=== PATIENT | male | born 1955 | race Caucasian/White ===

== ENCOUNTER 2018-10-17 09:53 | Inpatient (IN) | payer OTHER ==
[~2018-10-17] VITALS: Ht 172.7 cm; Wt 75.2 kg
--- OUTSIDE RECORDS SUMMARY | ~2018-10-17 | XMS | Clinical Summary ---
Demographics + + + | Address | [address] | | | [place] [address] | + + + | Home Phone | | + + + | Preferred Language | Unknown | + + + | Marital Status | | + + + | Moravian Affiliation | Unknown | + + + | Race | Unknown | + + + | Ethnic Group | Unknown | + + + Author + + + | Author | [employer] | + + + | Organization | [facility] | + + + | Address | Unknown | + + + | Phone | Unavailable | + + + Support + + +---------+ + | Name | Relationship | Address | Phone | + + +---------+ + | Jasiel Schulz | ECON | Unknown | | + + +---------+ + Care Team Providers + +------+ + | Care Commercial Photographer Name | Role | Phone | + +------+ + | ChandanaChad | PP | | + +------+ + Allergies Not on File Current Medications Not on file Active Problems Not on file Social History + +-------+ +--------+------+ | Tobacco [...] on file | | + + + Plan of Treatment +--------+ + + + + | Date | Type | Specialty | Care Team | Description | +--------+ + + + + | 12/23/ | Initial | | [facility], | | | 2019 | consult | | MD Miya Jordan | | | | | | Dr Hester, | | | | | | [place] [address] | | | | | | [phone] | | | | | | | | +--------+ + + + + + + + + + | Health Maintenance | Due Date | Last Done | Comments | + + + + + | Vaccine: | | | | | Dtap/Tdap/Td (1 - | 4 | | | | Tdap) | | | | + + + + + | Colon Cancer | | | | | Screening | 5 | | | | (Colonoscopy) | | | | + + + + + | Vaccine: Zoster (1 | | | | | of 2) | 5 | | | + + + + + | Vaccine: Influenza | | | | | (#1) | 8 | | | + + + + + Results Not on filefrom Last 3 Months Insurance + +--------+ +------+-------+ + | Payer | Benefi | Subscriber | Type | Phone | Address | | | t Plan | ID | | | | | | / | | | | | | | Group | | | | | + +--------+ +------+-------+ + | MEDICAID | [employer] | [id number] | | | [address] | | | N | | | | [place] | | | [place] | | | | [address] | | | 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
--- OUTSIDE RECORDS SUMMARY | ~2018-10-17 | XMS | Clinical Summary ---
Demographics + + + | Address | [address] | | | [place] [address] | + + + | Home Phone | | + + + | Preferred Language | Unknown | + + + | Marital Status | | + + + | Yazdanism Affiliation | Unknown | + + + | Race | Unknown | + + + | Ethnic Group | Unknown | + + + Author + + + | Author | [employer] | + + + | Organization | [facility] | + + + | Address | Unknown | + + + | Phone | Unavailable | + + + Support + + +---------+ + | Name | Relationship | Address | Phone | + + +---------+ + | Jasiel Schulz | ECON | Unknown | | + + +---------+ + Care Team Providers + +------+ + | Care Community Engagement Coordinator Name | Role | Phone | + [...] | | | | | | [place] [address] | | | | | | [phone] | | | | | | | [...] +------+-------+ + | MEDICAID | [employer] | [id number] | | | [address] | | | N | | | | [place] | | | [place] | | | | [address] | | | 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
--- OUTSIDE RECORDS SUMMARY | ~2018-10-17 | XMS | Clinical Summary ---
Demographics + + + | Address | [address] | | | [place] [address] | + + + | Home Phone | | + + + | Preferred Language | Unknown | + + + | Marital Status | | + + + | Nondenominational Affiliation | Unknown | + + + | Race | Unknown | + + + | Ethnic Group | Unknown | + + + Author + + + | Author | [facility] | + + + | Organization | [facility] | + + + | Address | Unknown | + + + | Phone | Unavailable | + + + Support + + +---------+ + | Name | Relationship | Address | Phone | + + +---------+ + | Jasiel Schulz | ECON | Unknown | | + + +---------+ + Care Team Providers + +------+ + | Care Freight Loader Name | Role | Phone | + [...] | | | | | | [place] [address] | | | | | | [phone] | | | | | | | [...] +------+-------+ + | MEDICAID | [employer] | [id number] | | | [address] | | | N | | | | [place] | | | [place] | | | | [address] | | | 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
[2018-10-17] MEDS ORDERED: GLUCOTROL5 MG PO (10:12)
[2018-10-17] MEDS ORDERED: BISOPROLOL FUMA10 MG PO (10:13)
[2018-10-17] MEDS ORDERED: LEVSIN0.125 MG PO (10:14)
--- NOTE | 2018-10-17 15:36 | EKG ---
[facility] [address] [facility] [place], [place] [address] Signed Normal sinus rhythm Cannot rule out Inferior infarct , age undetermined Abnormal ECG No previous ECGs available Confirmed by HAL MAZA DO ([id number]) on 10/17/2018 3:36:41 PM Electronically Signed By: HAL MAZA DO 10/17/18 1536 PATIENT NAME: KANU SCHULZ Electrocardiogram DATE OF : 55 PHYSICIAN: HAL MAZA DO REPORT #: [id number] REPORT IS CONFIDENTIAL AND NOT TO BE RELEASED WITHOUT AUTHORIZATION
--- NOTE | 2018-10-17 18:52 | NUR ---
PT ARRIVED FROM ED AT 18:15 PT WAS THREE PERSON TRANSFER FROM STREACHER TO THE BED. ADMIT PROCESS COMPLETED AND PT GIVEN DINNER. CBG [id number]
--- NOTE | 2018-10-17 18:56 | NUR ---
PT REMAINS AT THE BEDSIDE ALSO AT THIS TIME.
--- NOTE | 2018-10-17 19:30 | NUR ---
REPORT RC'D FROM DAY SHIFT NURSE GEORGINA. DR. MAZA AT BEDSIDE WITH NURSE TO UPDATE PLAN OF CARE.
--- NOTE | 2018-10-17 20:02 | NUR ---
PT IS AAOX4 AND RESPONDING APPROPRIATELY. SINUS RHYTHM ON MONITOR WITH HR IN 70'S. 2LNC FOR DESAT, CURRENTLY 96%, RR 20, BUL CLEAR, DIMINISHED BLL. ABD MODERATELY DISTENDED, PT STATES INCREASED DISTENSION SINCE AM, ABD TAP ATTEMPTED IN ED AND COVERED WITH BANDAGE C/D/I, DENIES NAUSEA, STATES DECREASED APPETITE, BOWEL TONES HYPER ACTIVE X4. NO EDEMA NOTED. MILD REDNESS TO BILATERAL FEET, FEET ALSO HEAVILY SOILED, PT STATES HE WALKES BARE FOOT, EDUCATION PROVIDED ON WEAR APPROPRAITE FOOTWEAR AND CHECKING FEET DAILY WITH DM HX. IV SITE STATES FLUSHED, PATENT, AND WNL, LR INFUSING AT 75 MLS/HR. NO TREMOR NOTED, NO SWEATS, DENIES ANXIETY, DENIES TACTILE/AUDITORY/VISUAL DISTURBANCES, DENEIS PACHECOHERMINIO SCORE 0. ORIENTED TO ROOM AND CALL LIGHT, EDUCATION OF SAFETY AND FALL PEVENTION PROVIDED. DENIES OTHER NEEDS. CALL [facility] WITHIN REACH.
--- NOTE | 2018-10-17 20:34 | NUR ---
PT ASSISTED TO BSC, TOLERATED WELL. MEDIUM SOFT BM WITH SMALL AMOUNT OF BRIGHT RED BLOOD. PT STATES HE HAS A HX OF HEMORRHOIDS AND "FEELS LIKE THEY ARE ACTING UP." WILL CONTINUE TO MONITOR.
--- NOTE | 2018-10-17 22:21 | NUR ---
PT NOTED TO DESAT INTO LOW 80'S WHILE ON 2L NC. NC TITRATED TO 3L, NO IMPROVEMENT. NC TITRATED TO 4L, PT MONITORED FOR IMPROVEMENT, OXYGEN SATURATION 86% ON 4L. PT NOTED TO MOUTH BREATH. 4L OXYMASK APPLIED AND OXYGEN SATURATIONS NOW IN HIGH 90%. WILL CONTINUE TO MONITOR.
--- NOTE | 2018-10-17 23:00 | NUR ---
UPDATED DR. MAZA ON PT'S CONDITION. ORDER RC'D TO DC FLUIDS, UPDATE DIET TO ADA WTIH 2GM SODIUM, AND CONTINUE TO MONITOR FOR HYPOTENSION. PT SALINE LOCKED AT THIS CELSO.
--- NOTE | 2018-10-18 00:37 | NUR ---
NO ACUTE CHANGES TO ASSESSMENT. PT AWAKENS EASILY. CIWA REMAINS 0. PT SALINE LOCKED.
--- NOTE | 2018-10-18 01:25 | NUR ---
CALL LIGHT ANSWERED, PT ASSISTED TO BSC, TOLERATED WELL. PT NOTED TO HAVE 3X3 INCH LIQUID BRIGHT RED BLOOD WITH SMALL CLOTS, DENIES HAVING BM. RECTUM AREA ASSESSED AND SMALL HEMORROID NOTED, NO BLEEDING OR INFLAMATION NOTED. PT STATES RECTAL BLEEDING HAS RESTARTED WITHIN "DAY OR SO." PHONE CALL TO DR. MAZA REGARDING BLLEDING. ORDER RC'D FOR CBC, TYPE AND SCREEN, AND NPO STATUS NOW. READ BACK AND VERIFIED. PT UPDATED ON PLAN AND AGREEABLE.
--- NOTE | 2018-10-18 02:20 | NUR ---
PT HAD SMALL SEMI SOFT LIQUID BM WIH BRIGHT RED BLOOD. SECOND NURSE KATHY VERIFIED BRIGHT RED BLOOD. ASSISTED BACK TO BED.
--- NOTE | 2018-10-18 03:42 | NUR ---
EDUCATION PROVIDED ON NEW MEDICATIONS AND POSSIBLE SIDE EFFECTS, PT VERBALIZED UNDERSTANDING, ALL QUESTIONS ANSWERED. EDUCATION PROVIDED ON BLOOD TRANSFUSION AND POSSIBLE SIDE EFFECTS, EDUCATION PACKET PROVIDED, ALL QUESTIONS ANSWERED, PT VERBALIZED UNDERSTANDING AND AGREEABLE.
--- NOTE | 2018-10-18 04:06 | NUR ---
BLOOD TRANSFUSING AT THIS TIME. PROVIDED EDUCATION ON REPORTABLE SIDE EFFECTS, PT VERBALIZED UNDERSTANDING. PT TOLERATING WELL AT THIS TIME.
--- NOTE | 2018-10-18 04:12 | NUR ---
PT HAS SUSTAINED HYPOTENSION WITH LAST BP OF 77/46 WITH A MAP OF 53. UPDATED DR. MAZA ON PT'S CONDITION, ORDER RC'D FOR LEVOPHED GTT TO MAINTAIN MAP OF GREATER THAN 65, READ BACK AND VERIFIED. DISCUSSED PLAN OF CARE WITH PT. PROVIDED EDUCATION ON MEDICATION USE AND POSSIBLE SIDE EFFETCS, PT VERBALZIED UNDERSTANING, ALL QUESTIONS ANSWERED, PT AGREEABLE WITH PLAN AT THIS TIME.
--- NOTE | 2018-10-18 04:40 | NUR ---
AAOX4. 2L OXYMASK, BUL CLEAR, LLL CLEAR/DIM, RLL REMAINS DIMINSHED, PT STATES IMPROVEMENT IN WOB. ASCITES TO ABD REMAINS, BOWEL TONES NOW HYPOACTIVE X4, DENIES NAUSEA, REPORTS OVERALL "ABD FEELING BETTER AND LESS BLOATED." REDDNESS TO BILATER FEET IMPROVING AND NEARLY RESOLVED. LEOPHED GTT STARTED AT 4 MCG/MIN. BLOOD CONTINUES INFUSING. FLAGYL INFUSING. OCETOTRIDE INFUSING. ALL IV SITES WNL.
--- NOTE | 2018-10-18 04:47 | NUR ---
LEVOPHED TITRATED TO 6 MCG/MIN. LAST BP 84/53, MAP 60, HR 71.
--- NOTE | 2018-10-18 05:11 | NUR ---
LEVOPHED GTT TITRATED TO 8 MCG/MIN AT THIS TIME. LAST BP 87/57, MAP 64, HR 72.
--- NOTE | 2018-10-18 06:39 | NUR ---
DR. SALAS AT BEDSIDE TO ASSESS PT. BLOOD COMPLETED AT THIS TIME. LEVOPHED TITRATED TO 6 MCG/MIN
--- NOTE | 2018-10-18 06:55 | NUR ---
LEVOPHED GTT TITRATED TO 4 MCG/MIN
--- NOTE | 2018-10-18 07:31 | NUR ---
LEVOPHED TITRATED TO 2 MCG/MIN
--- NOTE | 2018-10-18 07:40 | NUR ---
OR CREW HERE TO TAKE PT TO THE OR FOR EDG, PT WAS ABLE TO TRANSFER SELF FROM BED TO STREACHER. MAG RIDER STARTED BEFORE PT LEFT.
--- NOTE | 2018-10-18 10:48 | NUR ---
PT RETURNED FROM OR AT 08:40 TWO PERSON TRASFERED TO BED FROM KALPESH HARRIS ON LEVOPHED DRIP AT 15MCG. 09:00 LEVOPHED DRIP DECREASED TO 12MCG DR JOSUE DURAN TO USE CENTRAL LINE 10:00 LEVOPHED DRIP DECREASED 10 MCG 10:30 LEVOPHED DRIP AT 8MCG, PT UP TO BEDSIDE COMMODE, HAS BM AND SAMPLE SENT TO LAB PER ORDERS. PT TOLERATED THIS ACTIVITY WELL. MAP GREATER THAN 60. PT HAS USED THE URNINE TO VOID ALSO AT 10:00. PT IS TAKING IN PO LIQUIDS AND ABLE TO TOLERATE WELL. REMAINS ON O2 AT 2L'S VIA NC. LAB HERE OBTAINED LAB SAMPLE VIA IV SITE THAN DC'D.
--- NOTE | 2018-10-18 11:32 | NUR ---
PT UP TO THE BEDSIDE COMMODE, HAS SMALL AMOUNT OF BM AT THIS TIME WITH STREAKS OF RED BLOOD NOTED.
[2018-10-18] MEDS ORDERED: HYDROCHLOROTHIA25 MG PO (11:50)
--- NOTE | 2018-10-18 11:53 | NUR ---
Medications reconciled using pharmacy records and patient & his interviews. Some changes were made that conflicted with admission med list
--- NOTE | 2018-10-18 12:28 | NUR ---
IS ATE THE BED SIDE. PT IS ON THE SECOND BOTTLE OF BOWEL PREP.
--- NOTE | 2018-10-18 14:03 | NUR ---
RN deferred physical therapy treatment today due to patient bowel prep. He is scheduled for a scope tomorrow. Will check tomorrow if patient is appropriate for PT treatment.
--- NOTE | 2018-10-18 15:28 | CONS ---
[facility] [address] [place], [place] [address] Signed DATE OF CONSULTATION: 10/18/2018 CHIEF COMPLAINT: Rectal bleeding. 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 He said the last couple of months he has had no appetite and he has lost a significant amount of weight. He said food just does not taste good. He has had diarrhea and has become lightheaded and weak the last couple of days. His had called the ambulance and had him brought to the emergency room. His blood pressures have been run in the 70s and 80s. He is anemic with hemoglobin of 8.3 with mean cell volume at 92. His potassium was low at 2.7, but his liver function tests were fine, although the Ammonia is a little high at 42. Lactic acid was fine at 1.2. He has stool cultures pending. Blood sugars have been running 96 to 220. I was asked to see him as the general surgeon on-call. He received IV fluids in the emergency room along with Rocephin and Flagyl. His potassium has been replaced. The Internal Medicine Service gave him albumin along with a unit of packed red blood cells. He has been on low-dose Levophed with his blood pressures dipping in the 70s now, up around 100. Otherwise, he seems to be asymptomatic. He has continued to have some liquid brown stool associated with blood. He came in late last night. He has not been able to have a bowel prep. However, I was asked to see him earlier this morning for consideration of upper endoscopy to rule out an upper GI source. PAST MEDICAL HISTORY: Type 2 diabetes, diarrhea x2 months, hemorrhoids, stroke, hypertension, and gout. PAST SURGICAL HISTORY: Includes rhinoplasty, tonsillectomy and a negative colonoscopy over 10 years ago. SOCIAL HISTORY: He does not smoke, but he drinks at least 8 ounces of whiskey a day. He is to Jasiel at [phone]. 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 He has no children. Dr. Chad Ellington is his primary care provider. They prefer the [facility]. FAMILY HISTORY: Mom had congestive heart failure. Dad of colon cancer in his 80s. REVIEW OF SYSTEMS: He had 10 systems reviewed and there was nothing new to add medically. He said there is no metal in his body. ALLERGIES: Electronically Signed By: TRICIA SALAS MD 10/18/18 1528 PATIENT NAME: KANU SCHULZ CONSULTATION DATE OF : 55 REPORT #: [id number] PHYSICIAN: TRICIA SALAS MD PCP: CHDA ELLINGTON MD REPORT IS CONFIDENTIAL AND NOT TO BE RELEASED WITHOUT AUTHORIZATION [facility] [address] [place] [id number] Signed Iodinated contrast and penicillins. MEDICATIONS: 1. Glipizide. 2. Bisoprolol/hydrochlorothiazide. 3. Levsin. PHYSICAL EXAMINATION: VITAL SIGNS: Blood pressure is 87/57, his heart rate 72, respiratory rate 14, temperature 98.7, he is 94% on room air. He is 5 feet 8 inches tall. He is 74 kg. GENERAL: Kanu is a 63-year-old gentleman, lying supine in his ICU bed. He is alert, awake, and interactive. He has a look of chronic malnourished patient. Very thin arms and legs with little muscle mass, but a protuberant full abdomen. His hair is quite thin. He looks older than his stated age. HEART: Regular rate and rhythm, without murmur. LUNGS: Clear to auscultation bilaterally. ABDOMEN: Moderately protuberant, generally soft. No masses noted. No liver edge noted. He has a small umbilical hernia. No tenderness. No obvious fluid wave. LABORATORY DATA: His white blood count 13.9, hemoglobin was 8.3, it is up to 9.5 after 1 unit of packed red blood cells, mean cell volume is 92, neutrophils are 84. Potassium was 2.7 and that is being corrected and repeat potassium is pending. His blood sugars have been running 96 to 220. His albumin is 1.8. Alcohol was negative. Influenza was negative. The INR is 1.3, PTT is 33. Lactic acid is 1.2. Total bilirubin 0.9, AST 22, ALT 8, alkaline phosphatase 114. Ammonia is slightly up at 42. Stool and blood cultures are pending. The EKG showed normal sinus rhythm. RADIOGRAPHIC STUDIES: A chest x-ray shows some markings in the left lower lobe, possibly pneumonia. CT scan of the head was undertaken and the brain is unremarkable. He has some opacification of the left maxillary sinus and his ethmoid air cells. ASSESSMENT AND PLAN: Kanu is a 63-year-old significantly debilitated gentleman with some rectal bleeding associated with his stool. I have been asked to see him earlier this morning for consideration of an upper endoscopy with the help of an anesthesia provider of course. If that were negative, of course, we will try our best to get him to a bowel prep, and maybe a colonoscopy tomorrow, the next day. I reviewed all this with Kanu in detail. I have reviewed upper endoscopy with him. He recalls having a colonoscopy more than 10 years ago, so he is familiar with the process. There is risk including, but not limited to gas bloating, crampy abdominal pain, bleeding, perforation, requiring surgery, and missed diagnosis. Also, there was other unforeseen comorbidities. Given his debilitated state. He has expressed understanding would like to proceed. Electronically Signed By: TRICIA SALAS MD 10/18/18 1528 PATIENT NAME: KANU SCHULZ CONSULTATION DATE OF : 55 REPORT #: [id number] PHYSICIAN: TRICIA SALAS MD PCP: CHAD ELLINGTON MD REPORT IS CONFIDENTIAL AND NOT TO BE RELEASED WITHOUT AUTHORIZATION [address] [address] Signed Tricia Salas MD ALB/MODL /[id number] cc: MD Tricia Anderson MD Copies: CHAD ELLINGTON MD, ANDREW L MD ~ Electronically Signed By: TRICIA SALAS MD 10/18/18 1528 PATIENT NAME: KANU SCHULZ CONSULTATION DATE OF : 55 REPORT #: [id number] PHYSICIAN: TRICIA SALAS MD PCP: CHAD ELLINGTON MD REPORT IS CONFIDENTIAL AND NOT TO BE RELEASED WITHOUT AUTHORIZATION
--- NOTE | 2018-10-18 18:04 | NUR ---
PT TO CT AT THIS TIME, TRANSFER FROM BED TO TABLE WELL AND THEN BACK FROM TABLE TO BED. THEN BACK TO HIS ROOM 128
--- NOTE | 2018-10-18 18:23 | NUR ---
PT CONTIOUES TO DRINK THE SECOND BOTTLE OF BOWEL PREP. HE HAS TOLERATED THIS PROCESS WELL. HE IS VOIDING AT TIMES, ABD APPEARS TO BE LARGER THAN THIS AM. HE HAS BEEN RESTING AND WATCHING TV THROUGH OUT THE DAY. LEVOPHED DRIP DONE TO 4MCG AT THIS TIME TO MAINTAINE A MAP ABOVE 60.
--- NOTE | 2018-10-18 18:25 | NUR ---
LEVOPHED DRIP VS HAVE BEEN TAKE Q 15 MINTUES SEE FLOW SHEET IN PAPER CHART ALSO.
--- NOTE | 2018-10-18 18:43 | NUR ---
PT PLACED ON ROOM AIR AT THIS TIME. SPO2 98%. PT WAS TO BEDSIDE COMMODE VOIDED AND BM AND A LARGE AMOUNT IN THE ATTENDS WAS ALSO NOTED. PT CLEANED UP AND FRESH PULL UP PLACED.
--- NOTE | 2018-10-18 19:30 | NUR ---
REPORT RC'D FROM DAY SHIFT NURSE GEORGINA. REPORTS LEVOPHED GTT AT 4 MCG/MIN, BOWEL PREP STARTED, STREAKS OF JOANA RED BLOOD IN STOOL. PT'S AT BEDSIDE, PT UP IN BED WATCHING TV.
--- NOTE | 2018-10-18 20:16 | NUR ---
PT ASSISTED TO BSC, TOLERATD WELL. MEDIUM SEMI CLEAR LIQUID STOOL WITH SCANT JOANA BLOOD NOTED. PT ASSISTED BACK TO BED. PT AAOX4 AND RESPONDING APPROPRIATELY. SINUS RHYTHM ON MONITOR WITH HR IN 70'S, LEVOPHED GTT AT 4 MCG/MIN. ON ROOM AIR, BUL BIRGIT, BLL CLEAR BUT SLIGHTLY DIM, DENIES SOB. ASCITES TO ABD REMAINS, ABD LESS TIGHT, PT STATES IMPROVEMENT IN "BLOATING," BOWEL TONES HYPERACTIVE X4, DENIES NAUSEA. VOIDING QS. NONPITTING EDEMA TO BLE NOTED. RIJ FLUSHED WITH NS, PATENT, DRAWING BACK BLOOD. UPDATED PATIENT AND ON PLAN OF CARE, CURRENT CONDITION, AND MEDICATIONS. ADVISED TO USE CALL LIGHT, NONSLIP SOCKS, AND O STAND WITH ASSISTANCE, PROVIDED FALL PREVENTION AND SAFETY EDUCATION. PT AND VEBALIZED UNDERSTANDING AND AGREEABLE, ALL QUESTIONS ANSWERED. DENIES OTHER NEEDS.
--- NOTE | 2018-10-18 20:34 | NUR ---
CALL LIGHT ANSWERED, PT ASSISTED TO BSC, MEDIUM LIQUID BM NOTED. PT ASSISTED BACK TO BED, TOLERATED WELL AND STEADY ON FEET. PT'S ASKING IF SHE CAN ASSIST WITH CARE, DEMONSTRATED SAFE APPROPRIATE CARE, REINFORCED SAFETY AND FALL PREVENTION, PT AND VEBALIZED UNDERTANDING AND AGREEABLE.
--- NOTE | 2018-10-18 22:03 | NUR ---
BOWEL PREP COMPLETE AT THIS TIME. LEVOPHED GTT TITRATED TO 6 MCG/MIN, LAST BP 84/56 WITH A MAP OF 62.
--- NOTE | 2018-10-18 22:18 | NUR ---
LEVOPHED GTT TITRATED TO 8 MCG/MIN. LAST BP 82/55 WITH A MAP OF 61. WILL CONTINUE TO MONTIOR.
--- NOTE | 2018-10-18 23:00 | NUR ---
CALL LIGHT ANSWERED, PT ASSISTED BSC, NO BM. ASSISTED BACK TO BED, TOLERATED WELL. DENIES OTHER NEEDS CALL IGHT WITHIN REACH
--- NOTE | 2018-10-19 00:30 | NUR ---
LEVOPHED GTT AT 8 MCG/MIN. PT REMAINS ON ROOM AIR, BUL CLEAR, IMPROVED AIR MOVEMENT TO BLL, CRACKLES TO BLL, NO COUGH. NO OTHER ACUTE CHANGES TO ASSESSMENT.
--- NOTE | 2018-10-19 02:00 | NUR ---
PT RESTING COMFORTABLY IN BED WITH EYES CLOSED, RESPIATIONS EVEN AND UNLABORED ON ROOM AIR. PT VOIDING QS AND USING URINAL.
--- NOTE | 2018-10-19 03:28 | NUR ---
LEVOPHED GTT TITRATED TO 6 MCG/MIN
--- NOTE | 2018-10-19 04:40 | NUR ---
CRACKLES TO BLL. ONSET OF PRODUCTIVE COUGH. +1 PITTING EDEMA TO BLE. INCREASED TIGHTNESS TO ABD. PHONE CALL TO DR. CASTAÑEDA REGARDING PT'S CONDITION, ORDER RC'D TO DECREASE LR TO 50 MLS/HR, READ BACK AND VERIFIED.
--- NOTE | 2018-10-19 04:51 | NUR ---
CALL LIGHT ANSWERED, PT ASSISTED TO BSC, 100 ML CLEAR LIQUID STOOL WITH SMALL AMOUNT OF BRIGHT RED BLOOD.
--- NOTE | 2018-10-19 05:57 | NUR ---
PHONE CALL TO DR. CASTAÑEDA REGARDING LAB RESULS. ORDER RC'D FOR 40 MEQ IV POTASSIUM ONCE, READ BACK AND VERIFIED.
--- NOTE | 2018-10-19 06:35 | NUR ---
PT RESTED FOR MOST OF NIGHT. BOWEL PREP COMPLETE, BM CLEAR LIQUID WITH BRIGHT RED BLOOD. BUL REMAIN CLEAR, CRACKELS TO BLL, OCCASIONAL COUGH, TOLERATING ROOM AIR. SINUS RHYTHM, LEVOPHED AT 4 MCG/MIN, LAST BP 90/65 WITH A MAP OF 69. INCREASED EDEMA TO ABD, BOWEL TONES HYPERACTIVE, DENIES NAUSEA. VOIDING QS. +2 EDEMA TO BLE. RIJ DRESSING CHANGE COMPLETED, SITE PATENT AND DRAWING BACK BLOOD. COLONOSCOPY TODAY.
--- NOTE | 2018-10-19 07:21 | NUR ---
CALL LIGHT ANSWERED, PT ASSISTED TO BSC, 200 ML URINE, 50 ML BRIGHT RED BLOOD. ASSISTED BACK TO BED. DENIES OTHER NEEDS.
--- NOTE | 2018-10-19 08:16 | OR ---
[facility] [address], [place] [address] Signed DATE OF OPERATION: 10/18/2018 SURGEON: Tricia Salas MD PREOPERATIVE DIAGNOSES: 1. Gastrointestinal bleed (rectal bleeding). 2. Anemia. 3. Hypotension. 4. Severe malnutrition. 5. Daily alcohol use. 6. Possible left lower lobe pneumonia. POSTOPERATIVE DIAGNOSES: 1. Itrouugp-om-shcgii gastroduodenitis. 2. Lwhie-fi-jwtuprsl sized hiatal hernia. PROCEDURES: 1. Placement of right internal jugular triple-lumen catheter. 2. Physician-directed ultrasound. 3. Esophagogastroduodenoscopy with CLOtest and biopsies of the duodenum, pyloric bulb, antrum, and distal esophagus. ESTIMATED BLOOD LOSS: None. FINDINGS: Kanu certainly has uhxmkeyj-fl-oausct gastroduodenitis. The mucosa is quite friable. However, there was no anam blood or bleeding. Nevertheless, the mucosa is quite friable with biopsies and with pressure from our gastroscope. We did not see any ulcerations nor any gastric or esophageal varices. 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 He spent some time in [place] after intermediate to be closer to his 's family. They are now in [place], [place]. He likes to drink at least 8 ounces of whiskey every day. He said the last 2 months he had been having significant diarrhea and feeling lightheaded and weak especially the last two days. He said he is anorexic and has no appetite. He has been losing weight the last 2 months. He is known to have some hemorrhoids as well. He told me also that his father had colon cancer in his 80s and from the colon cancer. Kanu had a colonoscopy a little more than 10 years Electronically Signed By: TRICIA SALAS MD 10/19/18 0816 PATIENT NAME: KANU SCHULZ OPERATIVE REPORT DATE OF : 55 REPORT #: [id number] PHYSICIAN: TRICIA SALAS MD PCP: QUAN MCCAULEY MD REPORT IS CONFIDENTIAL AND NOT TO BE RELEASED WITHOUT AUTHORIZATION [facility] [address] [place] [address] Signed ago and to his knowledge it was negative. His had brought him into the emergency room for evaluation. His white count was up at 10.9, but his hemoglobin was low around 8.3 with a mean cell volume of 92, potassium was low, BUN was good at 12, creatinine was good at 0.8, albumin was quite low at 1.8. Liver function tests were amazingly good with the INR 1.3. Ammonia up a little bit at 42. Blood sugars running between 96 and 220. His EKG showed normal sinus rhythm. He was admitted to our Internal Medicine Service. He has been on Rocephin and Flagyl. They have been correcting his potassium and his magnesium. He did receive 1 unit of blood overnight. His hemoglobin came up to 9.5. He also received some albumin along with some IV fluids in the ER as well as in the ICU. I have been asked to see him as a general surgeon on-call mainly for consideration of upper and lower endoscopy. Of course, he came in late last night, so he is not prep for a colonoscopy. In addition, he is requiring ICU level care with multiple blood draws, a Levophed drip and so forth, so I was asked to place a central venous catheter for ongoing monitoring and treatment. I met with Kanu not only in the ICU but in our preop area. I reviewed upper and lower endoscopy with him. He is very familiar with that. He understands there is risk including, but not limited to gas bloating, crampy abdominal pain, bleeding, perforation, requiring surgery, and missed diagnosis. We also discussed a central venous catheter in detail. He understands there is risk including, but not limited to bleeding, infection, scarring, change in contour to the skin, catheter embolization requiring retrieval and pneumothorax requiring chest tube placement. He had expressed understanding and wished to proceed. PROCEDURE NOTE: Kanu was taken in the operating room and placed in the supine Trendelenburg position. Both sides of his neck and his entire chest wall were prepped and draped in the usual sterile fashion. We used our ultrasound to locate the right internal jugular vein. Local anesthetic was copiously injected into the subcutaneous tissues. We were able to enter the internal jugular vein with the 1st pass of the needle under visualization of the ultrasound. We were able to easily draw back nonpulsatile venous blood. Our wire was able to pass without any resistance whatsoever. The track was dilated again without any resistance whatsoever. The triple-lumen catheter was inserted up to 15 cm and all three ports were able to draw and flush quite readily. After this, the triple-lumen catheter was secured to his right neck using multiple interrupted silk sutures. A dry plastic occlusive dressing was then applied. After this, he was placed into the slight reverse Trendelenburg position. He was given some propofol per our nurse airline reservation agent. The adult gastroscope was then introduced and advanced out into the third portion of the duodenum without difficulty. He clearly has hxcqwvff-nw-luphyw gastroduodenitis. He had no ulcerations in the pyloric bulb or stomach. We took biopsies of the second portion of the duodenum, the pyloric bulb, and the antrum for pathologic review. We took a biopsy of the antrum for CLOtest. Upon retroflexion of scope, he does have a puxkw-lx-cvjawoxi sized hiatal hernia. We did not observe any gastric or esophageal varices. No Soraya-Verma tear. No Danny ulcer. There was mild disruption to his Electronically Signed By: TRICIA SALAS MD 10/19/18 0816 PATIENT NAME: KANU SCHULZ OPERATIVE REPORT DATE OF : 55 REPORT #: [id number] PHYSICIAN: TRICIA SALAS MD PCP: QUAN MCCAULEY MD REPORT IS CONFIDENTIAL AND NOT TO BE RELEASED WITHOUT AUTHORIZATION [facility] [address] [place], [place] [address] Signed Z-line. No obvious Green esophagus. We went ahead and took a biopsy just above the Z-line for pathologic review. The middle and upper esophagus were unremarkable. After this, the gas was suctioned out and the gastroscope removed. Kanu tolerated the procedure quite well. RECOMMENDATIONS: Kanu will be returned to the ICU to the internal medicine service. We did give him one additional unit of packed red blood cells in our preop area. We will go ahead and repeat his hemoglobin level currently. We will also allow him liquid diet with some MiraLAX and hopefully we can clean him out. We will see how he does, maybe we can do his colonoscopy tomorrow or the next day. Tricia Salas MD ALB/MODL /[id number] cc: MD Tricia Anderson MD Copies: QUAN MCCAULEY MD, ANDREW L MD ~ Electronically Signed By: TRICIA SALAS MD 10/19/18 0816 PATIENT NAME: KANU SCHULZ OPERATIVE REPORT DATE OF : 55 REPORT #: [id number] PHYSICIAN: TRICIA SALAS MD PCP: QUAN MCCAULEY MD REPORT IS CONFIDENTIAL AND NOT TO BE RELEASED WITHOUT AUTHORIZATION
--- NOTE | 2018-10-19 08:45 | NUR ---
PT RESTING IN BED AT THIS TIME. PT STATES HE DOES NOT FEEL GOOD WITH ALL THE FLUID HE HAS ON HIS BODY. DR. SALAS NOW IN ROOM SEEING PATIENT. LEVOPHED TURNED DOWN TO 2 MCG/MIN AT THIS TIME. IVF CONTINUE AT 50 ML/HR. IV CEFEPIME INFUSING. PT REMAINS ON ROOM AIR. PT'S AT BEDSIDE. CONTINUE TO MONITOR. ASSESSMENT COMPLETE.
--- NOTE | 2018-10-19 09:12 | NUR ---
PATIENT UP TO BSC TO HAVE A LIQUID BM. PT HAD YELLOWISH/BLOODY BM. PT TOLERATED MOVING WELL. ALL QUESTIONS ANSWERED BEST POSSIBLE. PT'S ALEX IN ROOM WITH PATIENT. CONSENT SIGNED FOR LOWER SCOPE TODAY WITH DR. SALAS WHILE DR. SALAS IN ROOM. LEVOPHED TURNED TO STANDBY AT THIS TIME AND LAST BP 90/74 (78). PT HAS PITTING EDEMA FROM ABDOMEN DOWN TO FEET, 2+. CONTINUE TO MONITOR.
--- NOTE | 2018-10-19 10:13 | NUR ---
DR. CASTAÑEDA IN ROOM ASSESSING PATIENT AT THIS TIME.
--- NOTE | 2018-10-19 11:02 | NUR ---
PATIENT LEFT AT THIS TIME FOR SCOPE.
--- NOTE | 2018-10-19 11:42 | NUR ---
10/19/18 1142 Gabby Grayson 1128- PT ARRIVES TO RECOVERY PHASE IN CCU ON 3 L VIA MASK. PT RESPONSIVE TO VERBAL STIMULUS AND DENIES PAIN/NAUSEA. SATS 100% ON 3 L. ENC PT TO PASS GAS. CCU JHON EDGE IN ROOM. PT HAS CENTRAL LINE IN PLACE. ASSESSMENT OF LINE WNL. 1135- VSS. PT'S BP LOW BUT THIS IS PT'S BASELINE. SATS 100% ON 3 L VIA OXYMASK. PT RESPONSIVE TO VERBAL STIMULUS AND ABLE TO ASSIST WITH TRANSFER BACK TO CCU BED. 1140- PT RESTING IN BED WITH RR EVEN AND UNLABORED. PT EASILY AROUSABLE. PT DENIES PAIN/NAUSEA. PT TRITRATED TO 2 L O2 VIA OXYMASK. SATS 100% AROUSBALE
--- NOTE | 2018-10-19 12:49 | NUR ---
LUNCH ORDERED FOR PATIENT. PATIENT RETURNED FROM EGD AND IS NOW RESTING IN BED. PT REMAINS OFF LEVOPHED SINCE AROUND 0900. LAST BP 101/73 (79). IVF CONTINUE AT 50 ML/HR.
--- NOTE | 2018-10-19 13:57 | OR ---
[facility] [address] [place], [place] [address] Signed DATE OF OPERATION: 10/19/2018 SURGEON: Tricia Salas MD PREOPERATIVE DIAGNOSES: 1. Rectal bleeding. 2. Anemia. 3. Ngetdttn-it-xluqvw gastroduodenitis (alcohol-related). 4. Fjhrm-dz-gyxotndl sized hiatal hernia. 5. Left lower lobe pneumonia. 6. Significant malnutrition. 7. Hypotension. POSTOPERATIVE DIAGNOSES: 1. Moderate internal and external hemorrhoids. 2. A 1 x 2 cm pedunculated polyp at 22 cm. 3. Large colonic mass (tumor) at 25 cm. PROCEDURE: Limited colonoscopy to 25 cm with snare polypectomy, and hot biopsies. ESTIMATED BLOOD LOSS: Minimal. INDICATIONS: Kanu is a 63-year-old gentleman, who presented to our hospital with rather significant lightheadedness and weakness for at least a couple of days. He has been losing weight for a couple months. He has been anorexic. He has been drinking alcohol on a daily basis. He also had diarrhea over the last couple months. He has also had rectal bleeding. He was admitted through the emergency room to the Internal Medicine Service. There was some concern of left lower quadrant pneumonia. He was started on his antibiotics and his white count is improving. I was asked to see him as a general surgeon on-call and we did do his upper endoscopy yesterday. He has qcmdkwsa-az-xgryqw gastroduodenitis. He has a rbmjv-ey-nnloifjj sized hiatal hernia. We also placed a right internal jugular triple-lumen catheter for ongoing care here in ICU. Yesterday, he was able to complete his bowel prep. He presents now for his colonoscopy. I met with Kanu and his and we had a long discussion regarding the details up to this point. He had a colonoscopy back in his 40s for reasons that are not clear. He could not recall the details. We did review colonoscopy along with its risks including, but not limited to gas bloating, crampy abdominal pain, bleeding, perforation, requiring Electronically Signed By: TRICIA SALAS MD 10/19/18 1357 PATIENT NAME: KANU SCHULZ OPERATIVE REPORT DATE OF : 55 REPORT #: [id number] PHYSICIAN: TRICIA SALAS MD PCP: CHAD MCCAULEY MD REPORT IS CONFIDENTIAL AND NOT TO BE RELEASED WITHOUT AUTHORIZATION [facility] [address] [place], [place] [address] Signed surgery, and missed diagnosis. We also discussed the need for monitored anesthesia care given his ASA 4 status. They had expressed understanding and wished to proceed. PROCEDURE NOTE: Kanu was taken into our endoscopy suite and placed in the left lateral decubitus position. He was maintained on IV sedation with propofol per our nurse build and deployment engineer. A digital rectal exam was performed. He does have moderate external hemorrhoids. He had good sphincter tone. The prostate is indurated, not overly enlarged. The left is certainly more prominent than the right. There were no masses noted. The adult colonoscope was introduced and advanced under direct visualization of camera. No specific pathology in the rectum. He has a 1 x 2 cm pedunculated polyp at 22 cm in his distal sigmoid colon. It was removed with help of the snare and suctioned onto the scope. It was sent off for pathology. We used out hot biopsy forceps to cauterize the base of that polyp and required an additional biopsy. The scope was then inserted and advanced once again and at 25 cm we encountered a large mass in the cecum. We tried several times over several minutes to pass the scope beyond the mass and it was unsuccessful. In fact, the scope retroflexed due to the mass. Of course, it was friable and bleeding. We went ahead and took a couple of biopsies of that for pathologic review. The scope was then slowly withdrawn. We saw no diverticular disease. The scope was then retroflexed in the rectum and he does have keugrgp-fg-gunrgiak internal hemorrhoids as well. After this, the gas was suctioned out and colonoscope removed. Kanu tolerated the procedure quite well. RECOMMENDATIONS: Kanu will be returned to his ICU bed for ongoing care. He is going to need antibiotics to clear his pneumonia. We are also going to go ahead and start him on TPN and we will give him a clear liquid diet as well. We will discuss the results with Kanu and his . He is going to need a week or more to recover from his pneumonia. In addition, he could benefit from a barium enema to assess the remainder of the colon for synchronous lesion. In the meantime, hopefully we can improve his nutritional status. Tricia Salas MD ALB/MODL /[id number] Electronically Signed By: TRICIA SALAS MD 10/19/18 1357 PATIENT NAME: KANU SCHULZ OPERATIVE REPORT DATE OF : 55 REPORT #: [id number] PHYSICIAN: TRICIA SALAS MD PCP: CHAD MCCAULEY MD REPORT IS CONFIDENTIAL AND NOT TO BE RELEASED WITHOUT AUTHORIZATION [facility] [address] [place] [address] Signed cc: MD Chad Edge MD Copies: TRICIA SALAS MD, MALCOLM MD ~ Electronically Signed By: TRICIA SALAS MD 10/19/18 1357 PATIENT NAME: SCHULZKANU OPERATIVE REPORT DATE OF : 55 REPORT #: [id number] PHYSICIAN: TRICIA SALAS MD PCP: CHAD MCCAULEY MD REPORT IS CONFIDENTIAL AND NOT TO BE RELEASED WITHOUT AUTHORIZATION
--- NOTE | 2018-10-19 16:40 | NUR ---
BLOOD CULTURES TAKEN FROM [facility] OF CENTRAL LINE PER DR. SALAS'S ORDER. PT REMAINS SLEEPY THIS AFTERNOON, BUT STATES HE IS FEELING BETTER SINCE HE HAS FINALLY BEEN ABLE TO REST. PT DENIED WANTING TO SHOWER TODAY, BUT STATES HE WOULD LIKE TO SHOWER TOMORROW. PT'S LEFT EARLIER AND WILL RETURN IN THE AM. LAST BP 84/60 (66). PT REMAINS OFF THE LEVOPHED GTT. ASSESSMENT UNCHANGED FROM PRIOR AT THIS TIME. CALL LIGHT WITHIN REACH. CONTINUE TO MONITOR.
--- NOTE | 2018-10-19 17:31 | NUR ---
PATIENT SITTING UP EATING HIS DINNER AT THIS TIME. PT HAD BEEN RESTING THIS AFTERNOON WELL. PT STATES AT THIS TIME THAT HE IS FEELING "THAT FULL FEELING" AGAIN, WHICH IS UNCOMFORTABLE FOR HIM. PT UP TO COMMODE AND HAD A VERY SMALL SMEAR OF BLOOD AT THIS TIME, NO BM. CONTINUE TO MONITOR.
--- NOTE | 2018-10-19 20:00 | NUR ---
Assisted patient to [facility], gait is steady. Patient had scant amount of mucoid-consistent output from bowel, no urine. Now resting in bed again, patient is mildly tachypneic from movement, recovered quickly, RR now 13, SpO2 98% on RA. Denies further needs at this time, denies pain or feeling SOB. Alert and oriented x4, HR WNL with activity and at rest, BP after commode 92/69 (75). 2+ pitting edema noted to BLE, generalized edema to BUE. Peripheral pulses are weak throughout. Lungs are clear in upper flores, crackles heard in bases bilaterally, denies SOB. Ascites noted to abd, patient denies pain with palpation, bowel tones are hypoactive. Cenral line present, all lumens have blood return, flush easily, LR infusing at 50 cc/hr per order, all other lumens heparin-locked. Patient denies further needs at this time. Call light within reach.
--- NOTE | 2018-10-19 21:15 | NUR ---
Notified Dr. Perkins that patient has had oliguria over past 6 hours and that MAP has been between 58 and 62 consistently. 500 cc LR bolus over 1 hour x1 ordered.
--- NOTE | 2018-10-19 21:32 | NUR ---
At 2131, Dr. Perkins notified that patient had sudden onset of HR between 138 and 142. Stat EKG ordered, Dr. Perkins states that he will come to patient's bedside for evaluation.
--- NOTE | 2018-10-19 21:40 | NUR ---
Dr. Perkins to bedside to evaluate patient. Patient states "I feel like my heart is racing." Denies feeling SOB, denies CP. See electronic record for vitals.
--- NOTE | 2018-10-19 22:15 | NUR ---
Dr. Perkins remains at bedside, patient continues to have sustained tachycardia with frequent BP monitoring, MAP ranging from 55 to 65. Received verbal order for BMP to be drawn from central line. Patient coninues to be restful and denies symptoms other than palpitations.
--- NOTE | 2018-10-19 23:04 | NUR ---
Notified Dr. Perkins that patient's stat lab results were back, Dr. Perkins states that he will come back to unit.
--- NOTE | 2018-10-19 23:10 | NUR ---
Dr. Perkins back to bedside fo further patient evaluation, patient continues to have sustained tachycardia with HR >140, received verbal order 5mg IV diltiazem push now x1 dose.
--- NOTE | 2018-10-19 23:15 | NUR ---
5mg IV diltiazem given per order, patient's heart rate converted to sinus rhythm, HR 70s. Patient states that he no longer feels palpitations. Also notified Dr. Perkins that patient had x1 liquid stool with anam red blood noted, less than 50cc. No new orders received.
--- NOTE | 2018-10-20 | NUR ---
Patient restful with eyes closed, breathing is even and unlabored. Assessment done, edema to BLE now 3+, crackles still heard in lower lung flores bilaterally, abdomen is also more firm now. Patient denies feeling SOB and denies abdominal discomfort. No other acute changes, patient's urine output is now QS after fluid administration, patient continues to be hypotensive with MAP between 60 and 62. Remains in sinus rhythm with rate between 65 and 80. Patient denies needs at this time. Call light within reach.
--- NOTE | 2018-10-20 00:45 | NUR ---
Notified Dr. Perkins that patient continues to have MAP <65 despite fluid administration. Also notified Dr. Perkins that patient's BLE edema has worsened, patient continues to have crackles bilaterally in lower lung flores and abdomen is cindy distended and firm. Received order forr patient to be stated on phenylephrine gtt, start at 40 mcg/min, titrate by 5 mcg/min every 15 minutes based on BP response to maintain MAP of 65.
--- NOTE | 2018-10-20 01:27 | NUR ---
Patient started on phenylephrine gtt at 40 mcg/min. Patient is restful with eyes closed, breathing is even and unlabored, FLACC 0. IVF infusing per order.
--- NOTE | 2018-10-20 01:45 | NUR ---
BP 97/67, MAP 73, heart rate 74, phenylephrine gtt titrated to 35 mcg/min.
--- NOTE | 2018-10-20 02:33 | NUR ---
Titrated phenylephrine gtt to 30 mcg/min due to BP 95/67 (73).
--- NOTE | 2018-10-20 02:40 | NUR ---
Patient remains restful, denies needs at this time, vitals WNL. call light within reach.
--- NOTE | 2018-10-20 03:30 | NUR ---
Patient restful with eyes closed, breathing is even and unlabored. IVF infusing per order. Call light within reach.
--- NOTE | 2018-10-20 05:18 | NUR ---
Phenylephine gtt titrated to 25 mcg/min, BP 93/67 (73). Patient assessment done, no acute changes from previous, vitals WNL, heart rate remains 70s to 80s, sinus rhythm. Patient denies needs at this time, IVF infusing per order. call light within reach.
--- NOTE | 2018-10-20 06:46 | NUR ---
Patient remains restful with eyes closed, vitals WNL. BP 104/75 (82), phenylephine gtt titrated to 20 mcg/min.
--- NOTE | 2018-10-20 08:07 | NUR ---
PHENYLEPHERIN DRIP OFF AT THIS TIME.
--- NOTE | 2018-10-20 08:30 | NUR ---
PT INCONTINENT OF LARGE AMOUNT OF LIQUID STOOL IN BED. CLEANED PT, NEW ATTENDS IN PLACE. BEDDING CHANGED. PT UP TO CHAIR WITH ONE PERSON STANDBY ASSIST. CALL LIGHT WITHIN REACH.
--- NOTE | 2018-10-20 08:55 | NUR ---
PT UP TO BEDSIDE COMMODE WITH ONE PERSON ASSIST FOR BM. PT WAS INCONTINENT OF LIQUID STOOL IN ATTENDS WELL. PT ALERT AND ORIENTED USES CALL LIGHT APPROPRIATLY.
--- NOTE | 2018-10-20 09:04 | NUR ---
PT BACK TO [facility] FROM [facility], CALL LIGHT WITHIN REACH.
--- NOTE | 2018-10-20 09:18 | NUR ---
IV FLUIDS OFF AT THIS TIME.
--- NOTE | 2018-10-20 09:23 | NUR ---
IV SITE IN RT WRIST DC'D DUE TO SCANT REDNESS AND PAIN WITH FLUSH. TIP OF CATH INTACT.
--- NOTE | 2018-10-20 10:51 | NUR ---
CALLED AND TO UPDATE ON PT SMALL AMOUNT OF JOANA BLOOD FROM RECTUM WHEN UP TO THE BEDSIDE COMMODE. PT VITALS REMAIN STABLE, PT DENIES FELLING FAINT OR PAIN. PT IS ONE PERSON STANDBY ASSIST TO COMMODE. NO NEW ORDERS AT THIS TIME. CONTINUE TO MONITOR.
--- NOTE | 2018-10-20 11:07 | NUR ---
CALLED PT PER HER REQUEST. GAVE UPDATE ON PT STATUS.
--- NOTE | 2018-10-20 12:04 | NUR ---
PT UP TO BEDSIDE COMMODE WITH ONE PERSON ASSIST. PT HAS SMALL AMOUNT OF JOANA BLOOD MIXED WITH LIQUID STOOL. PT ALSO ABLE TO URINATE. PT DENIES NAUSEA, PAIN, AND SOB AT THIS TIME. PT VITALS REMAIN WNL, PT SATS 100% ON ROOM AIR.
--- NOTE | 2018-10-20 15:25 | NUR ---
PT UP TO BEDSIDE COMMODE TO HAVE BM. PT INCONTINENT OF SCANT AMOUNT OF LIQUID STOOL IN ATTENDS. PT DENIES PAIN, NAUSEA, AND SOB. CALL LIGHT WITHIN REACH.
--- NOTE | 2018-10-20 15:32 | NUR ---
PT BACK TO BED FROM COMMODE, BLOOD TINGED MUCOUS STOOL, SCANT AMOUNT.
--- NOTE | 2018-10-20 17:20 | NUR ---
PT UP TO THE BEDSIDE COMMODE FOR ANOTHER SCANT LIQUID BM. PT THEN AMBULATED TO THE BATHROOM. PT ABLE TO BRUSH OWN TEETH AND WASH HANDS AND FACE, THEN AMBULATED BACK TO BED. CLEAN LINENS ON BED, CHANGED PT GOWN, BEDBATH DONE. SHAMPOO CAP USED FOR PT HAIR. WARM BLANKETS GIVEN. PT VITALS WNL. PT DENIES PAIN, NAUSEA, AND SOB. PT REPORTS ABD FEELING FULL, NO ACCOUNT MANAGER TRAINEE THE LAST FEW DAYS.
--- NOTE | 2018-10-20 19:22 | NUR ---
CALLED TO UPDATE ON PT URINE OUT PUT OF APPROXIMATLY 600 ML. NO NEW ORDERS AT THIS TIME.
--- NOTE | 2018-10-20 20:06 | NUR ---
RECEIVED REPORT FROM JHON REID. pt RESTING IN BED. ASSESSMENT DONE. UP TO BSC. LINENS CHANGED. IV INFUSION COMPLETE, SL, GOOD BLOOD RETURN NOTED. MEDICATION GIVEN (SEE MAR). NO REQUESTS AT THIS TIME. CALL LIGHT WITHIN REACH.
--- NOTE | 2018-10-20 21:45 | NUR ---
MEDICATION DUE. pt RESTING IN BED. UP TO BSC, SBA. SMALL BM. BACK TO BED. WARM BLANKET PROVIDED. WHITE LUMEN OF RIGHT IJ FLUSHED PER PROTOCOL, BRISK BLOOD RETURN, IV ABX INFUSION STARTED (SEE MAR). CALL LIGHT WITHIN REACH. NO FURTHER REQUESTS AT THIS TIME.
--- NOTE | 2018-10-20 23:15 | NUR ---
LEVOFLOXACIN INFUSION AND FLUSH COMPLETE. BLUE AND BROWN PORTS FLUSHED AND HEP LOCKED PER PROTOCOL, BRISK BLOOD RETURN NOTED. WHITE LUMEN RUNNING CEFEPIME. pt RESTING WITH EYES CLOSED, RESPIRATIONS REGULAR. CALL LIGHT WITHIN REACH.
--- NOTE | 2018-10-20 23:55 | NUR ---
IV PUMP BEEPING. ERROR CLEAR, INFUSION RUNNING. pt RESTING WITH EYES CLOSED, RESPIRATIONS REGULAR. CALL LIGHT WITHIN REACH
--- NOTE | 2018-10-21 00:35 | NUR ---
ASSESSMENT DONE. pt RESTING WITH EYES CLOSED, RESPIRATIONS REGULAR. URINAL EMPTIED. CALL LIGHT WITHIN REACH. NO CHANGES FROM PRIOR ASSESSMENT.
--- NOTE | 2018-10-21 01:21 | NUR ---
pt AWAKE TO URINATE. REPORTED HAVING A "BAD HEADACHE ABOUT A HALF HOUR AGO, BUT IT'S GONE NOW". DENIED PAIN AT THIS TIME. STATED "I FEEL FINE I JUST AM NOT USE TO FEELING BLOATED". URINAL EMPTIED. NO REQUESTS AT THIS TIME. CALL LIGHT WITHIN REACH.
--- NOTE | 2018-10-21 02:03 | NUR ---
IV PUMP BEEPING. ERROR RESOLVED, ABX INFUSING. pt RESTING WITH EYES CLOSED, REESPIRATIONS REGULAR, RATE = 17. CALL LIGHT WITHIN REACH.
--- NOTE | 2018-10-21 02:37 | NUR ---
IV PUMP BEEPING. INFUSION AND FLUSH COMPLETE. SL IV, BRISK BLOOD RETURN. pt RESTING WITH EYES CLOSED, RESPIRATIONS REGULAR RATE = 17. CALL LIGHT WITHIN REACH.
--- NOTE | 2018-10-21 03:38 | NUR ---
pt RESTING WITH EYES CLOSED, RESPIRATIONS REGULAR. RATE =12. CALL LIGHT WITHIN REACH.
--- NOTE | 2018-10-21 04:36 | NUR ---
ASSESSMENT DONE. pt OPENED EYES BRIEFLY. NO REQUESTS AT THIS TIME. DENIES PAIN. CALL LIGHT WITHIN REACH. NO CHANGES FROM PRIOR ASSESSMENT.
--- NOTE | 2018-10-21 05:05 | NUR ---
pt RESTING WITH EYES CLOSED RESPIRATIONS REGULAR, RATE =12. URINAL EMPTIED. CALL LIGHT WITHIN REACH.
--- NOTE | 2018-10-21 06:10 | NUR ---
MEDICATION DUE. pt RESTING WITH EYES CLOSED, RESPIRATIONS REGULAR, RATE =11. WHITE LUMEN OF IJ FLUSHED PER PROTOCOL, BLOOD RETURN NOTED. IV ABX INFUSING (SEE MAR). ROOM TIDIED. CALL LIGHT WITHIN REACH.
--- NOTE | 2018-10-21 07:30 | NUR ---
REPORT RECIEVED. PATIENT IS RESTFUL IN BED. TALKED WITH PATIENT ABOUT PLAN OF CARE FOR DAY. IS UNDERSTANDING. IS W/O QUESTIONS.
--- NOTE | 2018-10-21 08:00 | NUR ---
ASSESSMENT DONE. BREAKFAST ORDERED.
--- NOTE | 2018-10-21 09:13 | NUR ---
SHAVE GIVEN. TOLERATED WELL. HOB ELEVATED. DENEIS PAIN. C/O DISCOMFORT IN ABD. TOOK APPROX 30% OF BREAKFAST. IV ANTIBOTIC INFUSING. PATIENT DENIES NAUSEA.
--- NOTE | 2018-10-21 10:10 | NUR ---
PHYSICAL THERAPY HERE TO WORK WITH PATIENT. AMBULATED IN HALLWAY, HR TO 136, IS FATIGUED AND SHORT OF BREATH WITH EXERTION.
--- NOTE | 2018-10-21 10:13 | NUR ---
INC OF STOOL.SMALL AMOUNT OF BRIGHT RED BLOOD NOTED WELL DARK BROWN/GREENISH LIQ STOOL NOTED.
--- NOTE | 2018-10-21 10:45 | NUR ---
UP TO BR TO EXPELL SMALL STOOL. HR TO 146 WITH ACTIVITY. STATES HE FEELS HIS HEART BEATING FAST AND HAS INCREASED SHORTNESS OF BREATH. THEN BACK TO BED.
--- NOTE | 2018-10-21 12:00 | NUR ---
ASSESSMENT DONE. DR. CASTAÑEDA HERE TO SEE PATIENT. ORDERS RECIEVED. PATIENT IS SITTING UP IN BED FOR LUNCH.
--- NOTE | 2018-10-21 12:15 | NUR ---
PATIENT AT BEDSIDE. POOR APPETITE.
--- NOTE | 2018-10-21 13:15 | NUR ---
CVC DC'D. CATH INTACT. NO BLEEDING NOTED.
--- NOTE | 2018-10-21 14:00 | NUR ---
UP TO BR TO EXPELL RED STOOL. HR TO 130 WITH EXERTION.
--- NOTE | 2018-10-21 15:00 | NUR ---
NAPPING, NO DISTRESS NOTED.
--- NOTE | 2018-10-21 18:00 | NUR ---
C/O INCREASED PRESSURE IN ABD AFTER EATING.
--- NOTE | 2018-10-21 19:07 | NUR ---
WATCHING TV. REPORT TO NEXT SHIFT. NO CHANGES.
--- NOTE | 2018-10-21 19:56 | NUR ---
RESTING IN BED. C/O FEELING BLOATED IN ABD AND HAS PACHECO. STATES APPETITE IS POOR PARTLY DUE TO FEELING BLOATED. ABD IS SOMEWHAT DISTENDED. IS EDEMATOUS FROM FEET TO ABD. SKING IS SHINY ON LEGS/THIGHS. VOIDING SMALL AMT. GIVEN 500MG TYLENOL PO FOR PACHECO AND GENERAL DISCOMFORT. ALSO DISCUSSED THAT PT NEEDS INCREASED PROTIEN INTAKE.
--- NOTE | 2018-10-21 20:28 | NUR ---
BED LINENS CHANGED AND ROOM TIDIED WHILE PT SHOWERED.
--- NOTE | 2018-10-21 21:11 | NUR ---
AMD TO BR HAD SMALL AMT JOANA RED BLOOD STOOL. SOB WITH EXERTION AND HR TO 110.
--- NOTE | 2018-10-21 21:42 | NUR ---
HEAD ACHE BETTER, DOZING.
--- NOTE | 2018-10-21 22:35 | NUR ---
DR CASTAÑEDA GIVEN UPDATE THAT PT'S STOOLS ARE JOANA BLOOD WITH SMALL AMT STOOL. THE BLOOD IS ALSO SMALL AMTS.
--- NOTE | 2018-10-22 00:08 | NUR ---
ASSESSMENT DONE. STATES IS SLEEPING INTERMITTANTLY. NO CHANGE.
--- NOTE | 2018-10-22 01:45 | NUR ---
SLEEPING OFF AND ON, NO CHANGE.
--- NOTE | 2018-10-22 03:18 | NUR ---
CONT TO SLEEP OFF AND ON, CONT TO VOID SMALL AMTS FREQ.
--- NOTE | 2018-10-22 05:08 | NUR ---
HAS SLEPT BETTER PAST 2 HRS.
--- NOTE | 2018-10-22 05:21 | NUR ---
AWAKENED FOR VS AND LABS. HAS NO C/O AT THIS TIME. SPEAKS VERY LITTLE.
--- NOTE | 2018-10-22 06:50 | NUR ---
DR SALAS IN TO SEE PT.
--- NOTE | 2018-10-22 07:30 | NUR ---
REPORT RECIEVED. PATIENT IS IN BED RESTING. C/O PRESSURE IN LOWER ABD. TALKED WITH PATIENT ABOUT PLAN OF CARE FOR DAY, INDICATES UNDERSTANDING.
--- NOTE | 2018-10-22 07:45 | NUR ---
UP TO BR, INC OF BILE LIKE STOOL WITH SMALL AMOUNT OF BLOOD NOTED. HR TO 130 WITH MOVEMENT. IS SHORT OF BREATH WITH EXERTION. TO CHAIR AFTER BATHROOM. ASSESSMENT DONE.
--- NOTE | 2018-10-22 09:00 | NUR ---
TOOK BREAKFAST FAIR. SPONGE BATH GIVEN WHILE IN BATHROOM.
--- NOTE | 2018-10-22 09:35 | NUR ---
DR. CASTAÑEDA HERE TO SEE PATIENT. PATIENT TALKATIVE. HOB ELEVATED.
--- NOTE | 2018-10-22 12:30 | NUR ---
patient here. DR. CASTAÑEDA TALKING WITH PATIENT AND PATIENT .
--- NOTE | 2018-10-22 12:36 | NUR ---
PT EXPECTS TO RETURN HOME UPON DC, STATES THEY ARE ABLE TO CARE FOR THEMSELVES, AND ABLE TO GET TO DR MCNAMARA. STATES HE IS WORKING ON UNDERSTANDING HIS DX, [place] AT THIS TIME.
--- NOTE | 2018-10-22 13:52 | EKG ---
[facility] [address] [place] [address] Signed Junctional tachycardia Low voltage QRS Cannot rule out Inferior infarct (cited on or before 17-OCT-2018) Cannot rule out Anterior infarct , age undetermined Abnormal ECG When compared with ECG of 17-OCT-2018 10:49, Current undetermined rhythm precludes rhythm comparison, needs review Nonspecific T wave abnormality no longer evident in Anterior leads Nonspecific T wave abnormality, worse in Lateral leads Confirmed by STEPHIE CASTAÑEDA MD ([id number]) on 10/22/2018 1:52:34 PM Electronically Signed By: STEPHIE CASTAÑEDA MD 10/22/18 1352 PATIENT NAME: KANU SCHULZ Electrocardiogram DATE OF : 55 PHYSICIAN: STEPHIE CASTAÑEDA MD REPORT #: [id number] REPORT IS CONFIDENTIAL AND NOT TO BE RELEASED WITHOUT AUTHORIZATION
--- NOTE | 2018-10-22 14:03 | NUR ---
STAFF IN WITH PT, WILL CHECK BACK AGAIN.
--- NOTE | 2018-10-22 14:14 | NUR ---
SPOKE WITH IN [facility]. SHE STATES HE DRANK PART OF AN ENSURE FOR BREAKFAST BUT SHE DOESN'T KNOW HOW WELL HE DID WITH HIS 2 POACHED EGGS AND LATVIAN YOGURT FOR BREAKFAST. HE DID BETTER WITH LUNCH TODAY: AT SOME OF A CAES[employer] SALAD AND TUNA FISH. SAID SHE IS GONNA KEEP AFTER HIM TO EAT SOMETHING EVEN IF HE DOESN'T FEEL LIKE IT. WILL CONTINUE TO ENCOURAGE PROTEIN FOODS, TOO. WILL CONTINUE TO MONITOR. CONTINUE ENSURE ENLIVE 2 A DAY IF TOLERATED.
--- NOTE | 2018-10-22 15:00 | NUR ---
NAPPING, NO DISTRESS NOTED.
--- NOTE | 2018-10-22 16:10 | NUR ---
PHYS THERAPY HERE TO WORK WITH PATIENT. PATIENT AMBULATED TO MEDICAL FLOOR TO THERAPY ROOM. DR. MCCAULEY IN PHYS THERAPY ROOM TO TALK TO PATIENT AND PATIENT . PATIENT TOLERATING THERAPY WELL.
--- NOTE | 2018-10-22 19:21 | NUR ---
NO FUTHER CHANGES, REPORT GIVEN.
--- NOTE | 2018-10-22 20:00 | NUR ---
AMB TO BR, HAD VERY SMALL AMT BLOOD IN TOILET AND ATTENDS. HR TO 136 WHEN WACHING HANDS. PT IS MORE INTERACTIVE TONIGHT.
--- NOTE | 2018-10-22 20:30 | NUR ---
FEELING PRESSURE, CRAMPING LOWER ABD. TO BR HAD HAD SMALL AMT BLOOD AND MUCOUS FROM RECTUM. PT COMMENTED HE DOES HAVE HEMMOROIDS, ONE IS NOTED TO BE DARK. HR TO 116.
--- NOTE | 2018-10-22 21:30 | NUR ---
RESTING IN BED. MEDS GIVEN BS 156, GIVEN 1 UNIT INSULIN.
--- NOTE | 2018-10-23 00:28 | NUR ---
AWAKENED FOR ASSESSMENT. NO C/O.
--- NOTE | 2018-10-23 01:40 | NUR ---
PTS HR SUDDENLY WENT FROM 80'S TO 150'S-160. DR CASTAÑEDA NOTIFIED, CAME DOWN TO UNIT TO ASSESS PT. 6MG IV ADENOSINE GIVEN RAPID PUSH. HR DOWN TO 100'S. CONT TO MONITOR.
--- NOTE | 2018-10-23 01:54 | NUR ---
LAB IN TO DRAW.
--- NOTE | 2018-10-23 02:01 | NUR ---
CARDIZEM DRIP STARTED AT 3MG/HR PER DR CASTAÑEDA.
--- NOTE | 2018-10-23 02:15 | NUR ---
CARDIZEM INC TO 5MG/HR HR CONT TO BE 110.
--- NOTE | 2018-10-23 02:39 | NUR ---
DR CASTAÑEDA NOTIFIED OF LABS, ORDERS FOR 40MEQ KCL PO, MAGNESIUM SULFATE 2MG IV AND 20MILIMOLES OF POTASSIUM PHOSPHATE IV RECIEVED.
--- NOTE | 2018-10-23 03:37 | NUR ---
PT C/O PAIN AT IV SITE WHERE MG INFUSING. CHANGED TO OTHER FORARM SITE AND PAIN RESOLVED. MG FINISHED INUSING MINUTES LATER. K PHOS STARTED. CONT CARDIZEM AT 5MG/HR. PT DISCOURAGED, ALSO UPSET AT NOT BEING ABLE TO SLEEP. WILL TRY TO MINIMALIZE INTERUPTIONS.
--- NOTE | 2018-10-23 05:00 | NUR ---
PT IS ASLEEP. HR 77, CARDIZEM GTT TO 3MG/HR.
--- NOTE | 2018-10-23 05:58 | NUR ---
SLEEPING. HR 77 SR.
--- NOTE | 2018-10-23 06:25 | NUR ---
AWAKE AND UP TO BR TO VOID. HR FROM 60-70'S WHILE SLEEPING TO 90 WITH WALKING. TO LBEING UP WELL.
--- NOTE | 2018-10-23 06:27 | NUR ---
SLEEPING AT THIS TIME. CARDIZEM GTT AT 3MG/HR HR 70'S.
--- NOTE | 2018-10-23 06:50 | NUR ---
PT CALLED, INC OF LARGE AMT GREEN LIQ STOOL. AMB TO BR AND HAD MORE STOOL IN TOILET. HR UP TO 90'S WHILE UP. LINEN CHANGED AND BACK TO BED. PT NOW STATING THAT HE DIDN'T SLEEP WELL BECAUSE HE JUST COULDN'T GET COMFORTABLE. SUGGESTED THAT HE TAKE TYLENOL TONIGHT FOR GEN DISCOMFORT AND REST.
--- NOTE | 2018-10-23 07:16 | NUR ---
REPORT TO DAY SHIFT. RESTING.
--- NOTE | 2018-10-23 08:00 | NUR ---
ASSESSMENT DONE. UP TO BR TO EXPELL SMALL RED STOOL. BACK TO BED W/O INCIDENT. TALKED WITH PATIENT ABOU PLAN OF CARE FOR DAY. CARDIZEM GTT REMAINS PATENT. K PHOS INFUSED. ROUTINE MEDICATIONS GIVEN WELL TYLENOL 500 MG PO FOR GENERALIZED COMFORT. INSULIN 1 UNIT GIVEN FOR ACCUCHECK OF 155.
--- NOTE | 2018-10-23 09:00 | NUR ---
TOOK BREAKFAST FAIR. DENIES NAUSEA.
--- NOTE | 2018-10-23 09:40 | NUR ---
DR. SALAS HERE TO SEE PATIENT. HE TALKED WITH PATIENT REGARDING POSSIBLE SURGERY AND CT FOR FUTHER DX OF CANCER. DR. SALAS ALSO TALKED WITH PAIENT ON THE PHONE REGARDING PALN OF CARE.
--- NOTE | 2018-10-23 10:18 | NUR ---
LASIX 20 MG IV GIVEN.
--- NOTE | 2018-10-23 10:23 | NUR ---
PATIENT ONLY ATE ABOUT HALF OF HIS BLUEBERRY Syrian YOGURT FOR BREAKFAST. CHOCOLATE GLUCERNA SAVED OFF OF TRAY - ENCOURAGED PATIENT TO DRINK THAT THIS MORNING, THOUGH HE IS HAVING A CT SCAN TODAY AND MAY NEED TO DRINK THE CONTRAST BEFORE THAT. HE TRIED THE STEAK FOR DINNER BUT COULDN'T CHEW IT SO HE DIDN'T EAT IT. HE SAID WANTS A NICE JUICY RIB-EYE WHICH WE DON'T HAVE HERE. I DID REMIND HIM THERE ARE OTHER PROTEIN FOODS AVAILABLE THOUGH. HE WILL CONTINUE TO WORK ON PROTEIN INTAKE.
--- NOTE | 2018-10-23 10:30 | NUR ---
ORAL CONTRAST, SOLUMEDROL, AND PO MEDICATIONS GIVEN. PATIENT HAS WISHED TO REMAIAN IN BED. HAS BEEN AMBULAING TO BR. HR WITH AMBULATION < 100.REMAINS ON CARDIZEM GTT AT 3 MG/HR.
--- NOTE | 2018-10-23 14:15 | NUR ---
MEDICATIONS GIVEN ORDERED. AT BEDSIDE. CARDIZEM GTT REMAINS AT 3 MG/HR.
--- NOTE | 2018-10-23 15:00 | NUR ---
TO CT VIA BED. RN WITH PATIENT.
--- NOTE | 2018-10-23 15:30 | NUR ---
RETURN TO CCU. TOLERATED CT WELL. DENEIS SHORTNESS OF BREATH.
--- NOTE | 2018-10-23 16:00 | NUR ---
ASSESSMENT UNCHANGED. PTAIENT IS SITTING UP IN BED TO EAT DINNER.
--- NOTE | 2018-10-23 18:26 | NUR ---
UP TO BR. IS STEADY ON FEET.
--- NOTE | 2018-10-23 19:48 | NUR ---
REPORT RC'D FROM DAY SHIFT NURSE JENNY. REPORTS PT'S HR WNL, CARDIZEM GTT AT 3 MG/HR, PO MED TO START THIS EVENING. PT CURRENTLY IN BED WATCHING TV. FULL ASSSESSMENT TO BE COMPLETED.
--- NOTE | 2018-10-23 20:23 | NUR ---
PO CARDIZEM GIVEN AND GTT TO BE DC'D, HR 60-70'S. AAOX4 AND RESPONDING APPROPRIATELY. SINUS RHYTHM ON MONITOR, BP 91/64, MAP 69. ON ROOM AIR, RR 16, LUNGS CLEAR IN BUL, DIMINISHED IN BLL. ASCITES TO ABD, PT STATES ABD "FEELS BACK THAN LAST FEW DAYS," BOWEL TONES ACTIVE X4, DENIES NAUSEA. VOIDING QS. +2 EDEMA TO BLE, SCD, DENIES N/T. IV SITE PATENT AND WNL. DENIES PAIN. DENIES OTHER NEEDS. CALL LIGHT WITHIN REACH.
--- NOTE | 2018-10-23 21:17 | NUR ---
NETTA ELDER DC'D AT THIS TIME, HR 65, WILL CONTINUE TO MONTIOR.
--- NOTE | 2018-10-23 23:48 | NUR ---
CALL LIGHT ANSWERED, PT REQUESTING TO USE RESTROOM, SBA, GAIT STEADY, HR NOTED TO INCREASED TO 120'S. SMALL BURGUNDY SEMI SOFT LIQUID STOOL NOTED. PT ASSISTED BACK TO BED, HR RETURNED TO 60-70'S. PT C/O ANXIETY AND DISORIENTATION UPON WAKING. PT ORIENTED TO ALL AT THIS TIME. NO CHANGES TO ASSESSMENT. DENIES ANXIETY AT THIS TIME. WILL CONTINUE TO MONITOR.
--- NOTE | 2018-10-24 02:07 | NUR ---
PT UNABLE TO REST, DR. JONES NOTIFIED OF TRANSIENT ANXIETY/CONFUSION AND INSOMNIA, ORDER RC'D FOR 3MG MELATONINE HS PRN AND TO CONTINUE TO MONITOR FOR ANXIETY AND CONFUSION, READ BACK AND VERIFIED. PT HAD LARGE INCONTINENT BM, NEW ATTEND AND GOWN GIVEN. PT STATES HE FEELS EMBARRASSED, THERAPEUTIC COMMUNICATION PROVIDED, PT VERBALIZED HE WAS GREATFUL FOR TIME AND CARE RC'D.
--- NOTE | 2018-10-24 03:35 | NUR ---
CALL LIGHT ANSWERED, PT REQUESTING BREAK FROM SCD. PT STATES "I'VE BEEN TOSSING AND TURNING, WAITING FOR HE MELATONINE TO KCK IN." PT STATES HE IS USE TO BACKGROUND NOISE TO SLEEP, OFFERED WHITE SOUND MACHINE, PROVIDED.
--- NOTE | 2018-10-24 05:03 | NUR ---
PT RESTING WITH EYES CLOSED, RESPIRATIONS EVEN AND UNLABORED.
--- NOTE | 2018-10-24 06:33 | NUR ---
PT DID NOT REST MUCH THROUGHOUT THE SHIFT, 3MG MELATONIN GIVEN. AAOX4, SINGLE TRANSIENT EPISODE OF ANXIETY AND CONFUSION THAT RESOLVED QUICKLY. CARDIZEM GTT DC'D AND TOLERATING PO DOSE, HR REMAINED IN 60-70'S. BUL CLEAR, LLL DIMINISHED, FINE CRACKLES TO RLL, ENCOURAGE I/S, TOLERATING ROOM AIR. ABD REMAINS ROTUND WITH ACTIVE BOWEL TONES, DENIES NAUSEA. MULTIPL SEMI SOFT LIQUID BM WITH MINIMAL BLOOD, VOIDING QS. SALINE LOCKED. ENCOUAGE PO INTAKE, SLEEP HYGIENE, AND ACTIVITY TOLERATED.
--- NOTE | 2018-10-24 06:42 | NUR ---
DR. SALAS AT BEDSIDE TO ASSESS PT AND UPDATE PLAN OF CARE.
--- NOTE | 2018-10-24 07:30 | NUR ---
patient is UP TO BR WITH ASSIST. REPORT RECIEVED. PATIENT IS BACK TO BED WITHOUT INCIDENT. TALKED WIT APTIENT ABOUT PLAN OF CARE FOR DAY, IS UNDERSTANDING.
--- NOTE | 2018-10-24 08:00 | NUR ---
ASSESSMENT DONE. ENC TO DEEP BREATH. SITTING UP IN BED FOR BREAKFAST. PATIENT IS IN GOOD SPIRITS. HAS MUCH BETTER APPETITE. SL PATENT. SCD'S OFF AT THIS TIME PER PATIENT REQUEST.
--- NOTE | 2018-10-24 09:10 | NUR ---
DR. JONES HERE TO SEE PATIENT. SCD'S REAPPLIED. PT IS NOW AWARE THAT DR. JONES WANTS THE SCD'S ON MUCH POSSIBLE. DR. JONES TALKED WITH PATIENT REGARDING TENATIVE TRANSFER TO HIGHER LEVEL OF CARE. PATIENT IS UNDERSTANDING. UP TO BR TO EXPELL SMALL LIQUID BLOODY SOOL. DENIES ABD PAIN.
[2018-10-24] MEDS ORDERED: ALBUTEROL2.5 MG/0.5 INH ×2 (10:37→10:41)
--- NOTE | 2018-10-24 11:55 | NUR ---
UP TO BR TO EXPELL SMALL GREENISH BROWN LIQ STOOL. THEN AMBULATED TO ROOM 129, SA TRANSFERRED TO THIS ROOM. PATIENT TOLEATED AMBULATION WELL.
--- NOTE | 2018-10-24 12:00 | NUR ---
ASSESSMENT UNCHANGED. ACCUCHECK-266, 5 UNITS OF INSULIN SQ GIVEN. LUNCH GIVEN.
--- NOTE | 2018-10-24 12:27 | NUR ---
SPOKE WITH JHON ALVARADO, AND DR. JONES TO CLARIFY PATIENT'S DIET. KEEP IT CLEAR LIQUIDS AND FULL LIQUIDS WITH CLEAR ENSURE OR REGULAR ENSURE FOR NOW. PATIENT HAS A BETTER APPETITE BUT IS FINDING THE TASTE OF OUR FOOD DOES NOT SUIT HIM. WILL CONTINUE TO MONITOR.
--- NOTE | 2018-10-24 13:23 | NUR ---
PT IS ALERT, ORIENTED AND SEEMS TO BE RESTING COMFORTABLY. PT USED THE WORD "PROGRESSING" TO DESCRIBE HOW HE FELT HE WAS DOING. HE ALSO MENTIONED THAT HE GOT ABOUT MUCH SLEEP HE DOES AT HOME. THANKED ME FOR COMING IN, EXTENDED A BLESSING, AND WILL FOLLOW NEEDED
--- NOTE | 2018-10-24 15:10 | NUR ---
TO CHAIR WITH ASSIST. PATIENT CUTTING HAIR. PLAN TO HAVE SHOWER AFTER SHAVING AND HAIR CUT. DENIES PAIN.
--- NOTE | 2018-10-24 15:45 | NUR ---
AMBULATED TO SHOWER FROM ROOM 129.
--- NOTE | 2018-10-24 16:10 | NUR ---
TOLERATED SHOWER WELL. HR TO 111 WITH ACTIVITY, NO ECTOPY NOTED. DENIES SHORTNESS OF BREATH WITH EXERTION.
--- NOTE | 2018-10-24 17:00 | NUR ---
ACCUCHECK-190. 3 UNITS INSULIN GIVEN. IS RESTFUL IN BED. DENIES PAIN.
--- NOTE | 2018-10-24 17:45 | NUR ---
RT TO EDUCATE PT ON ACAPPELLA USE.
--- NOTE | 2018-10-24 18:17 | NUR ---
SBA TO BATHROOM. 1 UNMEASURED VOID AND I SMALL BROW LIQUID STOOL. BACK TO BED. TOLERATED AMBULATING WELL. DENEIS SOB. DINNER AT BEDSIDE. CALL LIGHT IN REACH.
--- NOTE | 2018-10-24 18:39 | NUR ---
SBA TO BATHROOM. SMALL AMOUNT OF BLOODY CLOTS. NO BM. PT HR UP TO 124 WITH AMBULATION. BACK TO BED, RECOVERED TO 90'S QUICKLY. SCD'S IN PLACE, ATE 35% OF DINNER AND DRANK ALL ENSURE.. DENIES ABDOMINAL DISCOMFORT. CALL LIGHT IN REACH
--- NOTE | 2018-10-24 19:30 | NUR ---
REPORT RC'D FROM DAY SHIFT NURSE ELISA. REPORTS PT'S HEART RATE INCREASED WITH ACTIVITY BUT RETURNS TO 60-70'S, NO ANXIETY, INCREASED ACTIVITY, AND POSSIBLE TRANSFER. PT CURRENTLY IN ROOM WATCHING TV.
--- NOTE | 2018-10-24 20:00 | NUR ---
PT ASSISTED TO RESTROOM, SMALL SEMI SOFT LIQUID BM WITH MINIMAL CLOTS, ASSISTED BACK BED, GAIT STEADY, HR 90'S, ASSISTED BACK TO BED.
--- NOTE | 2018-10-24 20:22 | NUR ---
AAOX4 AND RESPONDING APPROPRIATELY, DENIES ANXIETY, DENIES PAIN. SINUS RHYTHM ON MONITOR WITIH HR IN 70'S. LUNGS SOUNDS GREATLY IMPROVING, BUL CLEAR, RLL CLEAR, COURSE CRACKLES AND INCREASED AIR MOVEMENT TO LLL, TOLERATING ROOM AIR. ASCITES TO ABD, DENIES NAUSEA, TOLERATING LOW FIBER DIET. VOIDING QS, FREQUENTLY SMALL BMS. EDEMA TO BLL REMAINS +2, SCD IN PLACE, WALKS OCCANSIONALLY. DENIES N/T. IV SITE PATENT AND WNL, SALINE LOCKED. UPDATED PLAN OF CARE WITH PATIENT AND . DISCUSSED SLEEP HYGIENE AND PLAN FOR REST THIS EVENING. ENCOURAGED I/S USE HOURLY WHILE AWAKE, DISCUSSED DEEP BREATHING AND ACTIVITY IN REGARDS TO LUNGS FUNCTION. DISCUSSED DVT PREVENTION AND SCD USE. REINFORCED SAFETY AND FALL PREVENTION. PT AND VERBALIZED UNDERSTANDING AND AGREEABLE, ALL QUESTIONS ANSWERED. DENIES OTHER NEEDS. CALL LIGHT WITHIN REACH .
--- NOTE | 2018-10-24 21:32 | NUR ---
CALL LIGHT ANSWERED, PT ASSISTED TO RESTROOM, HR 90'S, SMALL BM WIH CLOTS. ASSISTED BACK TO BED, TOLERATED WELL, HR 70'S. CALL LIGHT WITHIN REACH.
--- NOTE | 2018-10-25 00:06 | NUR ---
PT RESTING WITH EYES CLOSED RESPIRATIONS EVEN AND UNLABORED, NO ACUTE DISTRESS NOTED.
--- NOTE | 2018-10-25 00:22 | NUR ---
NO ACUTE CHANGES TO ASSESSMENT. PT RESTING AT THIS TIME.
--- NOTE | 2018-10-25 01:00 | NUR ---
PT ASSISTED TO RESTROOM AND BACK TO BED. PT DEMONSTRATED I/S AND ACCAPELLA USE. DENIES OTHER NEEDS. CALL LIGHT WITHIN REACH.
--- NOTE | 2018-10-25 01:49 | NUR ---
Assisted to bathroom, gait steady, SBA. Now resting in bed again, denies further needs. Call light within reach.
--- NOTE | 2018-10-25 04:55 | NUR ---
PT C/O OF 3/10 HEACHACHE AND NAUSEA, PRN TYLENOL AND ZOFRAN GIVEN. PT'S LUNGS SOUNDS HAVE GREATLY IMPROVED, CLEAR THROUGHOUT ALL REDD, ON ROOM AIR. HR REMAINS IN 60-70'S AND TLERATING ACTIVITY. NO ADDITIONAL ACUTE CHANGES TO ASSESSMENT. CALL LIGHT WITHIN REACH. WILL CONTINUE TO MONITOR.
--- NOTE | 2018-10-25 04:55 | NUR ---
PT SBA TO RESTROOM, GAIT STEADY, TOLERATED WELL, BACK TO BED. DENIES OTHER NEEDS. ASSESSMENT TO BE COMPLETED.
--- NOTE | 2018-10-25 05:49 | NUR ---
PT ASSISTED TO RESTROOM, TOLERATED WELL, BACK TO BED. PT DEMNSTRATED USE OF I/S AND ACCAPELLA. EDEMA TO LEGS SOMEHWHAT IMPROVED WITH ELEVATION. DENIES OTHER NEEDS. CALL LIGHT WITHIN REACH
--- NOTE | 2018-10-25 07:45 | NUR ---
PT ASLEEP IN BED WITH EYE MASK IN PLACE. CHEST RISING AND FALLING, NO SIGNS OF DISCOMFORT IS DISTRESS. ON CONTINUOUS TELE MONITOR AND WNL. CALL LIGHT WITHIN REACH. WILL CONTINUE TO MONITOR.
--- NOTE | 2018-10-25 08:15 | NUR ---
PT CONTINUES TO REST IN BED ASLEEP. WILL LET HIM SLEEP A WHILE LONGER FOR REST AND RETURN SOON FOR MEDS AND ASSESSMENT. CALL LIGHT WITHIN REACH. WILL CONTINUE TO MONITOR.
--- NOTE | 2018-10-25 09:10 | NUR ---
ASSESSMENT COMPLETED AT THIS TIME. PT IS A/O X4, PLEASANT, CALM AND COOPERATIVE WITH NO C/O PAIN, N/V OR SOB. LUNGS ARE CLEAR ON ROOM AIR. SALINE LOCKED PIV IN LEFT ARM BUT MAG SULFATE INITIATED AT THIS TIME. ASCITES NOTED IN ABD WELL PITTING EDEMA IN BLE. SCD ON AND IN PLACE. PT ASSISTED STAND BY ASSIST TO AND FROM TOILET- URINE AND BM WAS HAD. PT C/O SOME WEAKNESS AND DIZZINESS ON HIS WAY BACK FROM BATHROOM. REQUESTS TO LAY DOWN VS THE CHAIR. SCD REPLACED AND ON. BREAKFAST ORDERED FOR PT- EDUCATION ON LOW FIBER DIET. PT DENIES ANY FUTHER NEEDS AT THIS TIME. SR ON CONTINUOUS TELE AND VSS. CALL LIGHT WITHIN REACH. WILL CONTINUE TO MONITOR.
--- NOTE | 2018-10-25 09:50 | NUR ---
PT AMBULATED TO AND FROM BATHROOM FOR INCONTINENT EPISODE OF MUCOID STOOL IN BRIEF- WHILE UP THIS RN CHANGED HIS LINENS. PT BATHED/CLEANED UP IN THE BATHROOM WITH SOME ASSISTANCE BY THIS RN. HIS HAS ARRIVED AND VISITING. PT REFUSES THE CHAIR AND REQUESTS BACK TO BED. PT NOW IN BED AT THIS TIME AND HIS BREAKFAST HAS JUST ARRIVED. CALL LIGHT WITHIN REACH. WILL CONTINUE TO MONITOR.
--- NOTE | 2018-10-25 10:35 | NUR ---
PT ATE REALLY WELL THIS AM FOR BREAKFAST- 100% OF HIS EGGS, SAUSAGE HILARIO AND COTTAGE CHEESE. MAG SULFATE HAS FINISHED INFUSING AND IS NOW SL. PT SITTING UP IN BED VISITING WITH AT HIS SIDE. DENIES ANY NEEDS AT THIS TIME. CALL LIGHT WITHIN REACH. WILL CONTINUE TO MONITOR.
--- NOTE | 2018-10-25 11:40 | NUR ---
PT HAS AMBULATED TO AND FROM BED/BATHROOM AT THIS TIME- ANOTHER SMALL/MEDIUM SEMI LOOSE BM WAS HAD. PT NO LONGER DIZZY AND STRONG ON FEET. BACK IN BED WITH AT HIS SIDE. CALL LIGHT WITHIN REACH. WILL CONTINUE TO MONITOR.
--- NOTE | 2018-10-25 12:26 | NUR ---
ASSESSMENT COMPLETED- NO CHANGE TO PT ASSESSMENT. HE REMAINS VERY PLEASANT, CALM AND COOPERATIVE WITH NO C/O PAIN, N/V OR SOB. HE STATES HE STILL SOMETIMES FEELS "LIGHT HEADED." ABOUT TO EAT HIS LUNCH. REMAINS AT HIS SIDE. CALL LIGHT WITHIN REACH. WILL CONTINUE TO MONITOR.
--- NOTE | 2018-10-25 13:25 | NUR ---
PT SITTING UP IN BED WATCHING TV WITH NO QUESTIONS OR CONCERNS. DENIES ANY NEEDS AT THIS TIME. CALL LIGHT WITHIN REACH. WILL CONTINUE TO MONITOR.
--- NOTE | 2018-10-25 14:40 | NUR ---
REPORT GIVEN TO RECEIVING JHON LIRA
--- NOTE | 2018-10-25 14:55 | NUR ---
PT AMBULATED WITH RN AT HIS SIDE WITH ALL BELONGINGS TO M/S UNIT. PT VS AND CONDITION STABLE. TRANSFER COMPLETE.
--- NOTE | 2018-10-25 15:10 | NUR ---
to room 123, patient walked and tolerated well. RN with him. to bed, SCD's on. watching tv.
--- NOTE | 2018-10-25 16:15 | NUR ---
PT STATES HE IS TIRED, BUT RESTING COMFORTABLY AT THIS TIME. PT REQUESTED STRAWBERRY ENSURE, COFFEE, WARM BLANKET, AND ICE WATER. PT WAS GIVEN ITEMS REQUESTED. PT STATED THAT HE FEELS MUCH BETTER THAN AT ADMIT.
--- NOTE | 2018-10-25 17:34 | NUR ---
PT TRASFERED TO FLOOR FROM UNIT. PT TOLERATES LOW FIBER DIET WELL. MAINTAINS O2 SAT ON ROOM AIR. VOIDING WELL. INDEPENDETLY USES SCD WHILE IN BED, AMBULATES FREQUENTLY. FREQUENT LOOSE STOOLS, BLOODY. USES CALL LIGHT APROPRIATELY. BLOOD SUGARS CONTROLED WITH SS INSULIN.
--- NOTE | 2018-10-25 19:15 | NUR ---
RECIEVED BEDSIDE REPORT FROM PANKAJ FERREIRA. PATIENT RESTING IN BED WITH EYE MASK IN PLACE. CALL LIGHT WITHIN REACH. RESPIRATORY RATE IS EVEN AND UNLABORED. NO SIGNS OF TENSING OR GRIMACING.
--- NOTE | 2018-10-25 20:07 | NUR ---
CHARGE NURSE ROUNDING NOTE:. IV LFA DC'D NOT PATENT. IV RESTARTED AFTER 2 TRIES RW, PROCEDURE EXPLAINED, NOT VERY RECEPTIVE. TOLERATED FAIR. CALL LIGHT FLUIDS AND NOISE MACHINE AT BEDSIDE. PT WEARING EYE MASK AND C/O HOSPITAL NOISE. VOICE AND PROCEDURES NOISE REDUCTION IMPLEMENTED. PT SEMISATISFIED. SCDS IN PLACE.
--- NOTE | 2018-10-25 20:45 | NUR ---
ASSESSMENT COMPLETE, REFER TO ASSESSMENT. PATIENT REPORTS "6/10" PAIN AND DESCRIBES PAIN A HEADACHE, PRN PAIN MEDICATION ADMINISTERED PER SEP ORDER. PATIENT REQUESTING PRN MEDICATION FOR SLEEP, PRN SLEEP MEDICATION PROVIDED PER SEP ORDER. PATIENT PRODUCED VERY SMALL BM THAT HAD RED DISCHARGE PRESENT. PATIENT REPORTS FEELING "A LITTLE BIT" BLOATED. MEDICATIONS ADMINISTERED PER SEP ORDER. IV ASSESSED, WNL. SCDS IN PLACE. CALL LIGHT WITHIN REACH. NO MORE NEEDS AT THIS TIME.
--- NOTE | 2018-10-25 22:09 | NUR ---
CHARGE NURSE ROUNDING NOTE: CONTINUES ON SWING BED STATUS, AWAKENS EASILY, O2 2L NC. NO RESP DISTRESS. NO REQUESTS, FRESH WATER GIVEN. CALL LIGHT AND FLUDIS AT BEDSIDE
--- NOTE | 2018-10-25 23:08 | NUR ---
ROUNDED ON PATIENT RESTING IN BED WITH EYES CLOSED, RESPIRATORY RATE IS EVEN AND UNLABORED. CALL LIGHT WITHIN REACH. NO MORE NEEDS AT THIS TIME.
--- NOTE | 2018-10-25 23:20 | NUR ---
THIS RN INSTRUCTED COUNTER WAITRESS/WAITER TO BLADDER SCAN PATIENT. BLADDER SCAN SHOWED 302 ML IN PATIENT'S BLADDER. THIS RN INSTRUCTED COUNTER WAITRESS/WAITER TO ASSIST PATIENT TO STAND UP AND USE URINAL.
--- NOTE | 2018-10-26 00:35 | NUR ---
PATIENT IS UP TO THE REST ROOM. STB ASSIST. FRESH WATER GIVEN AND CALL LIGHT IN REACH, NO OTHER NEEDS AT THIS TIME.
--- NOTE | 2018-10-26 01:15 | NUR ---
ROUNDED ON PATIENT RESTING IN BED WITH EYE MASK IN PLACE. RESPIRATORY RATE IS EVEN AND UNLABORED. NO SIGNS OF TENSING OR GRIMACING. CALL LIGHT WITHIN REACH.
--- NOTE | 2018-10-26 02:35 | NUR ---
ASSESSMENT COMPLETE, REFER TO ASSESSMENT. MEDICATION ADMINISTERED PER MAR ORDER. PATIENT DENIES PAIN, SOB, CHEST PAIN, OR DIFFICULTY BREATHING. IV ASSESSED, WNL. PAPER PROVIDED TO PATIENT PER PATIENT REQUEST. SCDS IN PLACE. CALL LIGHT WITHIN REACH. NO MORE NEEDS AT THIS TIME. PATIENT STATED THAT PATIENT HAS HAD A HARD TIME SLEEPING THIS SHIFT, THIS RN ASKED PATIENT IF THERE IS ANYTHING THAT NURSING STAFF CAN DO TO HELP WITH THIS, PATIENT DECLINED AT THIS TIME.
--- NOTE | 2018-10-26 03:22 | NUR ---
NOTIFIED DR. JONES OF PATIENT'S URINE OUTPUT. NO NEW ORDERS.
--- NOTE | 2018-10-26 04:44 | NUR ---
ROUNDED ON PATIENT RESTING IN BED WITH EYES CLOSED, RESPIRATORY RATE IS EVEN AND UNLABORED. CALL LIGHT WITHIN REACH. EYE MASK IN PLACE. NO SIGNS OF DISTRESS.
--- NOTE | 2018-10-26 06:09 | NUR ---
PATIENT REPORTS NOT SLEEPING WELL DURING THE NIGHT. SCDs. ROOM AIR. 60 G CONSISTENT CARBOHYDRATE DIET. ACCU CHECK WITH SLIDING SCALE. INCENTIVE SPIROMETER AT BEDSIDE. SBA. NEW IV PLACED THIS SHIFT. DAILY WEIGHT. PRN SLEEP MEDICATION X1. PRN PAIN MEDICATION X1. IV ABX X1.
--- NOTE | 2018-10-26 06:49 | NUR ---
PT HAD A LARGE AMOUNT OF SANGUINEOUS RECTAL DRAINAGE, HAD A HALF A PAPER DOLLAR SIZED THIN BLOOD CLOT WHEN UP TO BR. SKIN CARE DONE, COMPLETE BED LINEN CHANGED. PT BACK TO BED, TOLERATED WELL. DENIES FEELING LIGHHEADED. REASSURED. WILL NOTIFY PRIMARY RN. WARM BLANKET AND FRESH WATER GIVEN ON REQUEST. WILL NOTIFY DR JONES THIS AM
--- NOTE | 2018-10-26 07:40 | NUR ---
0735:BEDSIDE REPORT RECEIVED FROM SUELLEN FERREIRA. PT SLEEPING AT THIS TIME, CALL SQUIRES IS WITHIN REACH.
--- NOTE | 2018-10-26 08:18 | NUR ---
PATIENT IN BED RESTING WITH EYES CLOSED. PATIENT IND. IN ROOM. CALL LIGHT IN REACH. NO FURTHER NEEDS AT THIS TIME.
--- NOTE | 2018-10-26 08:32 | NUR ---
PT RESTING IN BED STATING HE HAS A PACHECO, WILL MEDICATE ORDERED. PT STATES UNDERSTANDING OF HIS POC. LOWER LEGS ELEVATED DUE TO HIS EDEMA. PT STATES HE UNDERSTANDS WHY TO CALL BEFORE GETTING OUT OF BED. CALL SQUIRES WITHIN REACH.
--- NOTE | 2018-10-26 10:23 | NUR ---
PT IS RESTING IN HIS BED WITHOUT ANY COMPLAINTS AT THIS TIME. HE STATES HIS PACHECO IS MUCH BETTER AT THIS TIME.
--- NOTE | 2018-10-26 11:54 | NUR ---
PT HAS HAD SEVERAL SMALL LOOSE RED BLOODY STOOLS TODAY. DR JONES WAS NOTIFIED OF THIS. THE PT DENIES ANY NEW COMPLAINTS AT THIS TIME.
--- NOTE | 2018-10-26 12:04 | NUR ---
PT HAD ANOTHER SMALL LOOSE BLOODY BM. PT NOTED TO HAVE SOME BLEEDING TO HIS LEFT ELBOW, THE SITE WAS CLEANED AND NOTED TO BE A SKIN TEAR. THE WOUND WAS CLEANED WITH NS AND COVERED WITH AN OPSITE DRESSING.
--- NOTE | 2018-10-26 12:28 | NUR ---
DR JONES NOTIFIED OF THE ADDITIONAL BLOODY STOOL, NEW ORDERS RECEIVED. LAB CALLED AND NOTIFIED OF THE NEW LABS.
--- NOTE | 2018-10-26 13:00 | NUR ---
In to see pt, pt up to restroom and passed some liquid stool with what appears to be some clots present in bright red liquid stool. Pt denies nausea, pt states hat 120mls in hat is from last 3 bowel movements. Pt states he feels like it is from hemorrhoids as he has a history of this and states he is tender when he wipes after bm. Pt declines sitting up in chair for lunch and so was assisted with setting up lunch tray in bed. Pt denies abominal pain and appears to be tolerating lunch well. Call light and h20 in reach. no further needs/concerns voiced.
--- NOTE | 2018-10-26 13:22 | NUR ---
PT EATING LUNCH AT THIS TIME WITH NO COMPLAINTS OTHER THAN THE FREQUENT BLOODY STOOLS. H&H 10.1.6 WHICH IS UP FROM YESTERDAY'S H&H.
--- NOTE | 2018-10-26 13:22 | NUR ---
MD AWARE OF URINE OUTPUT AND LABS.
--- NOTE | 2018-10-26 13:37 | NUR ---
PATIENT BACK TO BED FROM BATHROOM, SBA. PATIENT HAS BLODDY STOOL, RN NOTIFIED. CALL LIGHT IN REACH. NO FURTHER NEEDS AT THIS TIME.
--- NOTE | 2018-10-26 14:57 | NUR ---
PT CONTINUES TO FREQUENTLY NEED TO THE BR TO HAVE SMALL LIQUID BLOODY BOWEL MOVEMENTS.
--- NOTE | 2018-10-26 16:58 | NUR ---
Pt was again assisted to the BR and he had another small liquid bloody stool. The pt denies any pain or symptoms with the blood loss.
--- NOTE | 2018-10-26 17:27 | NUR ---
Clear ensure given to the pt.
--- NOTE | 2018-10-26 17:50 | NUR ---
PT CONTINUES TO DENIES ANY CHANGE IN HIS CONDITION BUT CONTINUES TO HAVING FREQUENT BLOODY STOOLS. DR JONES CALLED AND NOTIFIED OF THE PT'S BLEEDING. CBC IS ORDERED FOR THE AM.
--- NOTE | 2018-10-26 17:59 | NUR ---
PT RESTING IN BED AND HE CONTINUES TO DENIE ANY CP OR SOB. VSS.
--- NOTE | 2018-10-26 18:10 | NUR ---
PATIENT IN BED WATCHING TV. FRESH WATER GIVEN. CALL LIGHT IN REACH. NO FURTHER NEEDS AT THIS TIME.
--- NOTE | 2018-10-26 18:59 | NUR ---
RECIEVED REPORT FROM PHILIP FERREIRA. PATIENT RESTING IN BED WITH EYE MASK IN PLACE. RESPIRATORY RATE IS EVEN AND UNLABORED. CALL LIGHT WITHIN REACH. WHITE BOARD UPDATED.
--- NOTE | 2018-10-26 20:10 | NUR ---
ROUNDED CHARGE. PATIENT IS AMULATING BACK TO BED FROM THE RESTROOM. RN TELEHEALTH PRESENT. PATIENT DENIES ANY COMMENTS, QUESTIONS, OR CONCERNS. NO NEEDS NOTED. CALL LIGHT IN REACH.
--- NOTE | 2018-10-26 21:00 | NUR ---
ASSESSMENT COMPLETE, REFER TO ASSESMENT. PATIENT DENIES HAVING PAIN, SOB OR DIFFICULTY BREATHING. MEDICATIONS ADMINISTERED PER MAR ORDER. IV ASSESSED, WNL. THIS RN SBA PATIENT TO RESTROOM. PATIENT PRODUCED X1 BLOODY STOOL, VERY SMALL IN SIZE. PATIENT SAFELY BACK INTO BED. EDEMA PRESENT IN BLE, BLE ELEVATED ON PILLOW. SCDs IN PLACE. PATIENT REPORTS FEELING BLOATED, ACTIVE BOWEL TONES. PATIENT DENIES DIZZINESS OR LIGHTHEADEDNESS. OPSITE ON LEFT ELBOW IS CDI. CALL LIGHT WITHIN REACH. NO MORE NEEDS AT THIS TIME.
--- NOTE | 2018-10-26 22:37 | NUR ---
IV ABX COMPLETED. PATIENT IS NOW SL. PATIENT DENIES ANY NEEDS. CALL LIGHT IN REACH.
--- NOTE | 2018-10-26 23:03 | NUR ---
PATIENT CALLED AROUND 1950 TO USE THE BATHROOM. 1 SBA.
--- NOTE | 2018-10-27 00:20 | NUR ---
Patient requested to use the restroom by call light, BETTY 2 Garrison assisted. A complete bed change was done.
--- NOTE | 2018-10-27 00:43 | NUR ---
ROUNDED ON PATIENT RESTING IN BED WITH EYES CLOSED, RESPIRATORY RATE IS EVEN AND UNLABORED. EYE MASK IN PLACE. CALL LIGHT WITHIN REACH.
--- NOTE | 2018-10-27 02:23 | NUR ---
ASSESSMENT COMPLETE, REFER TO ASSESSMENT. PATIENT DENIES PAIN, SOB OR DIFFICULTY BREATHING. PATIENT DENIES ABD TENDERNESS, BUT REPORTS FEELING "BLOATED" AND NOT PASSING GAS, JUST HAVING "BOWEL MOVEMENTS", ACTIVE BOWEL TONES PRESENT. SCHEDULED MEDICATION ADMINISTERED PER SEP ORDER. BLE ELEVATED ON PILLOW. SCDs IN PLACE. CALL LIGHT WITHIN REACH. NO MORE NEEDS AT THIS TIME.
--- NOTE | 2018-10-27 03:55 | NUR ---
ROUNDED ON PATIENT TO ANSWER PATIENT'S CALL LIGHT. SBA PATIENT TO RESTROOM. PATIENT SAFELY BACK INTO BED. SCDs IN PLACE. BLE ELEVATED ON PILLOW. NEW GOWN PLACED ON PATIENT. CALL LIGHT WITHIN REACH.
--- NOTE | 2018-10-27 03:56 | NUR ---
ROUNDED ON PATIENT RESTING IN BED WITH EYE MASK IN PLACE. RESPIRATORY RATE IS EVEN AND UNLABORED. CALL LIGHT WITHIN REACH.
--- NOTE | 2018-10-27 07:39 | NUR ---
0730: REPORT RECIEVED FROM SUELLEN FERREIRA. PT IS IN THE BR WITH THE DIESEL SCOOP OPERATOR HELPING HIM AT THIS TIME.
--- NOTE | 2018-10-27 08:26 | NUR ---
PT EATING BREAKFAST AND HE DENIES ANY NEW PROBLEMS AT THIS TIME. ROCÍO STATES HE IS FEELING A BIT STRONGER TODAY. CALL SQUIRES IS WITHIN REACH.
--- NOTE | 2018-10-27 10:54 | NUR ---
PT SLEEPING AT THIS TIME.
--- NOTE | 2018-10-27 12:01 | NUR ---
Pt resting in bed without any current complaints. He drank a clear ensure and tolerated it well.
--- NOTE | 2018-10-27 12:36 | NUR ---
Opsite which was placed yesterday to the left elbow has serous/sang drainage noted under the dressing. The opsite was removed, the site cleaned and covered with an allyven and dated. The wound appears healthy without s/s of infection and measures 1 inch long.
--- NOTE | 2018-10-27 13:31 | NUR ---
PT WATCHING TV WITH NO COMPLAINS, CALL SQUIRES IN REACH.
--- NOTE | 2018-10-27 18:19 | NUR ---
PATIENT DRANK TWO CLEAR ENSURE DRINKS TODAY
--- NOTE | 2018-10-27 19:22 | NUR ---
RECIEVED BEDSIDE REPORT FROM JHON PALACIOS. PATIENT LAYING AWAKE IN BED. PHILIP FERREIRA ASSISTED PATIENT TO RESTROOM SBA. X1 BM NOTED IN BED WHEN PATIENT STOOD UP TO USE RESTROOM, SMALL AMOUNT OF BLOOD NOTED IN STOOL. NEW CHUCKS PLACED ON BED. PATIENT REPORTS FINISHING ENSURE FOR DAY. WHITE BOARD UPDATED. PHILIP FERREIRA IN ROOM WITH PATIENT AT THIS TIME.
--- NOTE | 2018-10-27 21:15 | NUR ---
ASSESSMENT COMPLETE, REFER TO ASSESSMENT. PATIENT REPORTS "8/10" PAIN IN ABD AND DESCRIBES PAIN "CRAMPING", PATIENT DENIES WANTING PRN PAIN MEDICATION. PATIENT REPORTS FEELING "BLOATED". IV ASSESSED, WNL. MEDICATION ADMINISTRATION COMPLETE PER MAR ORDER. PATIENT DENIES HAVING SHORTNESS OF BREATH, DIFFICULTY BREATHING OR CHEST PAIN. EDEMA NOTED IN BLE, BLE ELEVATED ON PILLOW. SCDs IN PLACE. ENCOURAGED PATIENT TO USE INCENTIVE SPIROMETER. PATIENT DENIES PASSING FLATUS, JUST STOOL, ACTIVE BOWEL TONES. CALL LIGHT WITHIN REACH. NO MORE NEEDS AT THIS TIME.
--- NOTE | 2018-10-27 21:48 | NUR ---
COMPO CONVEYOR OPERATOR ROUNDING NOTE. PT RESTING IN BED. PRIMARY RN IN ROOM. PT DENIES NEEDS AT THIS TIME. CALL LIGHT IN REACH.
--- NOTE | 2018-10-27 23:24 | NUR ---
PATIENT CALLED TO USE THE BATHROOM. SBA. CHANGED PULL UPS. PATIENT IS BACK IN BED.
--- NOTE | 2018-10-28 00:25 | NUR ---
ROUNDED ON PATIENT LAYING AWAKE IN BED. URINAL EMPTIED. CALL LIGHT WITHIN REACH. NO MORE NEEDS AT THIS TIME.
--- NOTE | 2018-10-28 02:39 | NUR ---
ROUNDED ON PATIENT RESTING IN BED WITH EYE MASK IN PLACE. RESPIRATORY RATE IS EVEN AND UNLABORED. NO SIGNS OF DISTRESS. CALL LIGHT WITHIN REACH.
--- NOTE | 2018-10-28 03:45 | NUR ---
ASSESSMENT COMPLETE, REFER TO ASSESSMENT. PATIENT REPORTS "4/10" "CRAMPING" PAIN IN ABD, PATIENT STATED PATIENT WOULD LIKE SOMETHING FOR PAIN, NOTIFIED CHARGE NURSE SUZANNE THAT PATIENT WOULD LIKE PRN PAIN MEDICATION. PATIENT DENIES HAVING CHEST PAIN, SHORTNESS OF BREATH, OR DIFFICULTY BREATHING. EDEMA NOTED IN BLE, BLE ELEVATED ON PILLOW. SCDS IN PLACE. PATIENT REPORTS NAUSEA, BUT DENIES WANTING NAUSEA MEDICATION, STATING "IM DOING OK". CALL LIGHT WITHIN REACH. PATIENT DENIES ANYMORE NEEDS AT THIS TIME.
--- NOTE | 2018-10-28 03:57 | NUR ---
Patient asked to use the restroom by call light. I assisted he resulted with a BM and had urine output. He wanted some ice water so i got it for him.
--- NOTE | 2018-10-28 03:58 | NUR ---
PATIENT GIVEN PRN TYLENOL FOR 4/10 ABD "CRAMPS". PATIENT IS RESTING IN BED. PATIENT DENIES ANY FURTHER NEEDS. CALL LIGHT IN REACH.
--- NOTE | 2018-10-28 06:02 | NUR ---
ANSWERED PATIENT'S CALL LIGHT. PATIENT DENIES HAVING PAIN. SBA PATIENT TO RESTROOM. CALL LIGHT WITHIN REACH. EDUCATED PATIENT TO USE CALL LIGHT WHEN PATIENT IS FINISHED USING RESTROOM.
--- NOTE | 2018-10-28 07:12 | NUR ---
Patient requested to use the restroom by call light, I assisted. He resulted with a sm liq. He did not need anything further at this time. Call light and bedside table in place.
--- NOTE | 2018-10-28 07:30 | NUR ---
RECIEVED BEDSIDE REPORT FROM JHON KEN. PT SLEEPING SOUNDLY. CALL BUTTON IN REACH.
--- NOTE | 2018-10-28 07:49 | NUR ---
PATIENT IN BED RESTING WITH EYES CLOSED. PATIENT REFUSED TO GET INTO CHAIR, HE WATNED TO SLEEP LONGER. CALL LIGHT IN REACH. NO FURTHER NEEDS AT THIS TIME.
[2018-10-28] MEDS ORDERED: DILTIAZEM 24HR120 M1 PO (08:10)
[2018-10-28] MEDS ORDERED: MAG-OXIDE400 MG PO (08:11)
--- NOTE | 2018-10-28 08:26 | NUR ---
PATIENT UP TO BATHROOM AND THEN TO CHAIR, SBA. PATIENT NOW IN CHAIR EATING BREAKFAST. CALL LIGHT IN REACH. NO FURTHER NEEDS AT THIS TIME.
--- NOTE | 2018-10-28 08:57 | NUR ---
PT SITTING UP IN BED. ATE 90% OF BREAKFAST. REPORTS HAVING A LOOSE BM, REPORTS THAT IT DID NOT APEAR TO HAVE BLOOD IN IT, BUT PT FLUSHED. REPORTS FEELING BLOATED, BUT DENIES PAIN.
--- NOTE | 2018-10-28 09:39 | NUR ---
PATIENT IN BED TALKING TO FAMILY IN ROOM. CALL LIGHT IN REACH. NO FURTHER NEEDS AT THIS TIME.
== END 2018-10-28 10:50 | disposition home or self-care (01) | DRG 871 ==
LOC: ED 09:53 → CCU 16:51 → MS 10-25 14:55
PROVIDERS: Colon & Rectal Surgery; ADMIT Student in an Organized Health Care Education/Training Program
PROC: 0DB38ZX Excision of Lower Esophagus, Via Natural or Artificial Opening Endoscopic, Diagnostic (ICD-10-PCS; 2018-10-18)
PROC: 06H033Z Insertion of Infusion Device into Inferior Vena Cava, Percutaneous Approach (ICD-10-PCS; 2018-10-18)
PROC: 30233N1 Transfusion of Nonautologous Red Blood Cells into Peripheral Vein, Percutaneous Approach (ICD-10-PCS; 2018-10-18)
PROC: 0W9G3ZX Drainage of Peritoneal Cavity, Percutaneous Approach, Diagnostic (ICD-10-PCS; 2018-10-18)
PROC: 3E033XZ Introduction of Vasopressor into Peripheral Vein, Percutaneous Approach (ICD-10-PCS; 2018-10-18)
PROC: 0DB98ZX Excision of Duodenum, Via Natural or Artificial Opening Endoscopic, Diagnostic (ICD-10-PCS; principal; 2018-10-18 07:30)
PROC: 0DB78ZX Excision of Stomach, Pylorus, Via Natural or Artificial Opening Endoscopic, Diagnostic (ICD-10-PCS; 2018-10-18 07:30)
PROC: 0DBH8ZX Excision of Cecum, Via Natural or Artificial Opening Endoscopic, Diagnostic (ICD-10-PCS; 2018-10-19)
PROC: 0DBN8ZX Excision of Sigmoid Colon, Via Natural or Artificial Opening Endoscopic, Diagnostic (ICD-10-PCS; 2018-10-19)
DX: A40.3 Sepsis due to Streptococcus pneumoniae (principal); R65.21 Severe sepsis with septic shock; J13 Pneumonia due to Streptococcus pneumoniae; J15.8 Pneumonia due to other specified bacteria; A41.89 Other specified sepsis; E43 Unspecified severe protein-calorie malnutrition; D62 Acute posthemorrhagic anemia; K56.1 Intussusception; R18.8 Other ascites; I47.1 Supraventricular tachycardia; E83.51 Hypocalcemia; E11.9 Type 2 diabetes mellitus without complications; I10 Essential (primary) hypertension; N28.1 Cyst of kidney, acquired; K70.0 Alcoholic fatty liver; F10.20 Alcohol dependence, uncomplicated; E55.9 Vitamin D deficiency, unspecified; K29.90 Gastroduodenitis, unspecified, without bleeding; K44.9 Diaphragmatic hernia without obstruction or gangrene; I34.0 Nonrheumatic mitral (valve) insufficiency; K63.5 Polyp of colon; K63.89 Other specified diseases of intestine; K64.4 Residual hemorrhoidal skin tags; K64.8 Other hemorrhoids; M10.9 Gout, unspecified; E87.6 Hypokalemia; E83.42 Hypomagnesemia; E83.39 Other disorders of phosphorus metabolism; Z80.0 Family history of malignant neoplasm of digestive organs; Z79.899 Other long term (current) drug therapy; Z79.84 Long term (current) use of oral hypoglycemic drugs; Z88.0 Allergy status to penicillin; Z91.041 Radiographic dye allergy status; Z68.24 Body mass index [BMI] 24.0-24.9, adult
CPT/HCPCS: 36415; 36430; 49083; 70450; 71045; 71260; 74176; 74177; 80048; 80053; 80069; 80076; 81001; 82140; 82306; 82378; 82607; 82728; 82746; 82945; 83540; 83605; 83735; 83880; 84100; 84134; 84157; 84466; 84484; 85014; 85018; 85025; 85610; 85730; 86677; 86850; 86900; 86901; 86920; 87040; 87045; 87046; 87070; 87075; 87077; 87205; 87449; 87493; 87502; 87899; 88305; 88342; 89051; 93005; 93010; 93306; 94667; 96361; 96365; 96366; 97110; 97116; 97161; 97165; 97535; 99291; 99292; C9113; G0480; J0153; J0610; J0692; J0696; J1200; J1644; J1815; J1940; J1956; J2250; J2354; J2370; J2405; J2704; J2930; J3411; J3420; J3475; J3480; J7030; J7050; J7060; J7120; P9016; P9047; Q9967

== ENCOUNTER 2018-10-28 18:04 | Emergency (ER) | payer OTHER ==
[~2018-10-28] VITALS: Ht 167.6 cm; Wt 75.0 kg
--- OUTSIDE RECORDS SUMMARY | ~2018-10-28 | XMS | Encounter Summary ---
Demographics + + + | Address | [address] | | | [place] [address] | + + + | Home Phone | | + + + | Preferred Language | Unknown | + + + | Marital Status | | + + + | Amish Affiliation | Unknown | + + + | Race | Unknown | + + + | Ethnic Group | Unknown | + + + Author + + + | Author | Sonya Zhou Heiya | + + + | Organization | [facility] | + + + | Address | Unknown | + + + | Phone | Unavailable | + + + Support + + +---------+ + | Name | Relationship | Address | Phone | + + +---------+ + | Jasiel Purdy | ECON | Unknown | | + + +---------+ + Care Team Providers + +------+ + | Care Stiff Leg Operator Name | Role | Phone | + +------+ + | Chad Ellington | PCP | | + +------+ + Encounter Details +--------+ + + + + | Date | Type | Department | Care Team | Description | +--------+ + + + + | 10/21/ | Ancillary | [facility] | Marco A Perkins MD | SVT | | 2019 | Procedure | ECHO | [address] | (supraventricular | | | | | [place] | tachycardia) ([facility]) | | | | | [address] | | | | | | | | +--------+ + + + + Social History + +-------+ +--------+------+ | Tobacco Use | Types | Packs/Day | Years | Date | | | | | Used | | + +-------+ +--------+------+ | Never Assessed | | | | | + +-------+ +--------+------+ + + + | Sex Assigned at | Date Recorded | | | | + + + | Not on file | | + + + as of this encounter Plan of Treatment +--------+ + + + + | Date | Type | Specialty | Care Team | Description | +--------+ + + + + | 12/23/ | Initial | Cardiology | [facility], | | | 2019 | consult | | MD Miya Jordan | | | | | | Dr [address], | | | | | | [place] [address] | | | | | | [phone] | | | | | | | | +--------+ + + + + as of this encounter Procedures + +--------+ + + + | Procedure Name | Priori | Date/Time | Associated Diagnosis | Comments | | | ty | | | | + +--------+ + + + | ECHO OUTSIDE | Routin | 10/21/2018 | SVT | Results for this | | INTERPRETATION | e | 8:48 AM | (supraventricular | procedure are in the | | STANDARD | | PDT | tachycardia) (HCC) | results section. | + +--------+ + + + in this encounter Results ECHO outside interpretation standard (10/21/2018 8:48 AM) + + + | Impressions | Performed At | + + + | 1. Overall left ventricular systolic function is normal with an EF | [facility] | | between 60 - 65%. 2. The right ventricle is normal in size and | RADIOLOGY | | function. 3. Avys-xw-ckdggjhc mitral regurgitation is present. | | + + + + + + | Narrative | Performed At | + + + | Patient Name: Yash Purdy Date of : 1955 [facility] | | Performing Physician: NORM BURGER, | RADIOLOGY | | MD | | | INDICATIONS SVT CONCLUSIONS 1. Overall | | | left ventricular systolic function is normal with an EF between 60 - | | | 65%. 2. The right ventricle is normal in size and function. 3. | | | Awny-dc-zarlclwq mitral regurgitation is present. FINDINGS | | | -------- ECG rhythm: Sinus rhythm. Study: A 2-dimensional | | | transthoracic echocardiogram with m-mode, spectral and color flow | | | Doppler was perfomed. Study: This was a technically adequate study. | | | Study: No subcostal views. Left Ventricle: Overall left ventricular | | | systolic function is normal with an EF between 60 - 65%. Left | | | Ventricle: The left ventricle cavity size is normal. Left Ventricle: | | | Left ventricular wall thickness is normal. Left Ventricle: No | | | regional wall motion abnormalities. Left Ventricle: The diastolic | | | filling pattern is normal for the age of the patient. Right | | | Ventricle: The right ventricle is normal in size and function. Left | | | Atrium: The left atrium is normal in size. Right Atrium: The right | | | atrium is normal in size. Aortic Valve: The aortic valve appears to | | | be trileaflet. Aortic Valve: There is no evidence of aortic | | | regurgitation. Aortic Valve: There is no evidence of aortic | | | stenosis. Mitral Valve: The mitral valve is normal. Mitral Valve: | | | Edyj-zg-soiqogli mitral regurgitation is present. Mitral Valve: No | | | evidence of MVP. Tricuspid Valve: The tricuspid valve appears | | | structurally normal. Tricuspid Valve: Trace tricuspid regurgitation | | | present. Tricuspid Valve: There is no evidence of pulmonary | | | hypertension. Tricuspid Valve: The right ventricular systolic | | | pressure (pulmonary artery systolic pressure), as measured by Doppler, | | | is 22.82mmHg. Pulmonic Valve: The pulmonic valve is normal. | | | Pericardium: Pleural effusion present. IVC/Hepatic Veins: The IVC was | | | not well visualized. Aorta: The aortic root and ascending aorta are | | | normal. Aorta: The aortic arch was not imaged. Mass: No mass | | | visualized Thrombus: No clot visualized Thrombus: No vegetation | | | visualized. Septum: Cannot rule out left to right atrial shunting. | | | MEASUREMENTS Ao asc: 3.18 cm Ao Diam: 3.13 | | | cm Ao sinus: 3.[address] junct: 3.06 cm LA Major: | | | 3.59 cm EDV(Teich): 127.08 ml IVSd: 0.78 cm LVIDd: 5.15 | | | cm LVPWd: 0.65 cm LVOT Area: 3.22 cm2 LVOT Diam: 2.02 | | | cm %FS: 35.14 % EF(Teich): 64.11 % ESV(Teich): 45.60 ml | | | LVIDs: 3.34 cm SV(Teich): 81.48 ml RA Major: 3.97 cm | | | RV Major: 6.38 cm RV Minor: 3.00 cm RVIDd: 2.83 cm LVEF | | | MOD A2C: 61.36 % SV MOD A2C: 40.74 ml LVEF MOD A4C: | | | 66.78 % SV MOD A4C: 63.78 ml EF Biplane: 64.31 % LVEDV MOD | | | BP: 82.08 ml LVESV MOD BP: 29.29 ml LVEDV MOD A2C: 66.40 | | | ml LVLd A2C: 7.02 cm LVEDV MOD A4C: 95.49 ml LVLd A4C: | | | 7.52 cm LVESV MOD A2C: 25.65 ml LVLs A2C: 5.56 cm LVESV | | | MOD A4C: 31.71 ml LVLs A4C: 5.96 cm LAESV(A-L): 26.55 ml | | | LAESV Index (A-L): 14.12 ml/m2 LAAs A2C: 11.91 cm2 LAESV | | | A-L A2C: 28.71 ml LALs A2C: 4.19 cm LAAs A4C: 9.83 cm2 | | | LAESV A-L A4C: 21.90 ml LALs A4C: 3.74 cm RAAs: 8.69 cm2 | | | RAESV A-L: 15.34 ml RAESV MOD: 15.47 ml RALs: 4.17 cm | | | TAPSE: 2.93 cm AV maxP.47 mmHg AV meanP.16 mmHg | | | AV Vmax: 1.45 m/s AV Vmean: 0.94 m/s AV VTI: 24.54 cm | | | ELISHA Vmax: 2.55 cm2 ELISHA (VTI): 3.09 cm2 AVAI Vmax: 0.00 | | | cm2/m2 AVAI (VTI): 0.00 cm2/m2 LVOT maxP.34 mmHg LVOT | | | meanP.76 mmHg LVSI Dopp: 40.40 ml/m2 LVSV Dopp: | | | 75.95 ml LVOT Vmax: 1.15 m/s LVOT Vmean: 0.77 m/s LVOT | | | VTI: 23.58 cm MV A Marcos: 0.83 m/s MV Dec Juncos: 3.79 m/s2 | | | MV DecT: 180.05 ms MV E Marcos: 0.68 m/s MV E/A Ratio: | | | 0.82 MV PHT: 52.21 ms MVA By PHT: 4.21 cm2 Septal e': | | | 0.05 m/s Septal E/e': 11.58 Lateral e': 0.10 m/s Lateral | | | E/e': 6.48 RAP: 5 mmHg RV S': 0.14 m/s RVSP: 22.81 | | | mmHg TR maxP.81 mmHg TR Vmax: 2.11 m/s | | | Outside Machinist Supervisor: Authenticated by: NORM BURGER MD Report | | | Date/Time: 10-21-2018 12:0:6 | | + + + + + | Procedure Note | + + | Augie Couch Results In - 10/21/2018 12:00 PM PDT Patient Name: Titi Purdy of | | : 5Accession: [id number] Physician: NORM BURGER MD | | INDICATIONS SVT | | CONCLUSIONS 1. Overall left ventricular systolic function is normal with an EF | | between 60 - 65%.2. The right ventricle is normal in size and function.3. | | Kipw-mj-ufgjjyff mitral regurgitation is present.FINDINGS--------ECG rhythm: Sinus | | rhythm.Study: A 2-dimensional transthoracic echocardiogram with m-mode, spectral and | | color flow Doppler was perfomed. Study: This was a technically adequate study. Study: No | | subcostal views.Left Ventricle: Overall left ventricular systolic function is normal | | with an EF between 60 - 65%. Left Ventricle: The left ventricle cavity size is normal. | | Left Ventricle: Left ventricular wall thickness is normal. Left Ventricle: No regional | | wall motion abnormalities. Left Ventricle: The diastolic filling pattern is normal for | | the age of the patient.Right Ventricle: The right ventricle is normal in size and | | function.Left Atrium: The left atrium is normal in size.Right Atrium: The right atrium | | is normal in size. Aortic Valve: The aortic valve appears to be trileaflet. Aortic | | Valve: There is no evidence of aortic regurgitation. Aortic Valve: There is no evidence | | of aortic stenosis.Mitral Valve: The mitral valve is normal. Mitral Valve: | | Odeu-yr-vxeteqyk mitral regurgitation is present. Mitral Valve: No evidence of | | MVP.Tricuspid Valve: The tricuspid valve appears structurally normal. Tricuspid Valve: | | Trace tricuspid regurgitation present. Tricuspid Valve: There is no evidence of | | pulmonary hypertension. Tricuspid Valve: The right ventricular systolic pressure | | (pulmonary artery systolic pressure), as measured by Doppler, is 22.82mmHg.Pulmonic | | Valve: The pulmonic valve is normal.Pericardium: Pleural effusion present.IVC/Hepatic | | Veins: The IVC was not well visualized.Aorta: The aortic root and ascending aorta are | | normal. Aorta: The aortic arch was not imaged.Mass: No mass visualizedThrombus: No clot | | visualized Thrombus: No vegetation visualized.Septum: Cannot rule out left to right | | atrial shunting.MEASUREMENTS Ao asc: 3.18 cmAo Diam: 3.13 cmAo sinus: | | 3.[address] junct: 3.06 cmLA Major: 3.59 cmEDV(Teich): 127.08 mlIVSd: 0.78 | | cmLVIDd: 5.15 cmLVPWd: 0.65 cmLVOT Area: 3.22 [id number] Diam: 2.02 cm%FS: 35.14 | | %EF(Teich): 64.11 %ESV(Teich): 45.60 mlLVIDs: 3.34 cmSV(Teich): 81.48 mlRA | | Major: 3.97 cmRV Major: 6.38 cmRV Minor: 3.00 cmRVIDd: 2.83 cmLVEF MOD A2C: | | 61.36 %SV MOD A2C: 40.74 mlLVEF MOD A4C: 66.78 %SV MOD A4C: 63.78 mlEF Biplane: | | 64.31 %LVEDV MOD BP: 82.08 mlLVESV MOD BP: 29.29 mlLVEDV MOD A2C: 66.40 mlLVLd | | A2C: 7.02 cmLVEDV MOD A4C: 95.49 mlLVLd A4C: 7.52 cmLVESV MOD A2C: 25.65 mlLVLs | | A2C: 5.56 cmLVESV MOD A4C: 31.71 mlLVLs A4C: 5.96 cmLAESV(A-L): 26.55 mlLAESV | | Index (A-L): 14.12 ml/m2LAAs A2C: 11.91 [id number] A-L A2C: 28.71 mlLALs A2C: 4.19 | | cmLAAs A4C: 9.83 fh4PKVVP A-L A4C: 21.90 mlLALs A4C: 3.74 cmRAAs: 8.69 [id number] | | A-L: 15.34 mlRAESV MOD: 15.47 mlRALs: 4.17 cmTAPSE: 2.93 cmAV maxP.47 | | mmHgAV meanP.16 mmHgAV Vmax: 1.45 m/Hakeem Vmean: 0.94 m/Hakeem VTI: 24.54 cmAVA | | Vmax: 2.55 cm2AVA (VTI): 3.09 [id number] Vmax: 0.00 cm2/m2AVAI (VTI): 0.00 | | cm2/m2LVOT maxP.34 mmHgLVOT meanP.76 mmHgLVSI Dopp: 40.40 ml/m2LVSV Dopp: | | 75.95 mlLVOT Vmax: 1.15 m/sLVOT Vmean: 0.77 m/sLVOT VTI: 23.58 cmMV A Marcos: | | 0.83 m/sMV Dec Juncos: 3.79 m/s2MV DecT: 180.05 msMV E Marcos: 0.68 m/sMV E/A Ratio: | | 0.82 MV PHT: 52.21 msMVA By PHT: 4.21 rn7Mwpely e': 0.05 m/sSeptal E/e': 11.58 | | Lateral e': 0.10 m/sLateral E/e': 6.48 RAP: 5 mmHgRV S': 0.14 m/sRVSP: 22.81 | | mmHgTR maxP.81 mmHgTR Vmax: 2.11 m/sSonographer: Authenticated by: NORM | | VILMA BURGEReport Date/Time: 10-21-2018 12:0:6IMPRESSION:1. Overall left ventricular systolic | | function is normal with an EF between 60 - 65%.2. The right ventricle is normal in size | | and function.3. Djjh-he-zrguinav mitral regurgitation is present. | |Thrombus: No vegetation visualized. | |Septum: Cannot rule out left to right atrial shunting. | | | |MEASUREMENTS | | | |Ao asc: 3.18 cm | |Ao Diam: 3.13 cm | |Ao sinus: 3.21 cm | |Ao st junct: 3.06 cm | |LA Major: 3.59 cm | |EDV(Teich): 127.08 ml | |IVSd: 0.78 cm | |LVIDd: 5.15 cm | |LVPWd: 0.65 cm | |LVOT Area: 3.22 cm2 | |LVOT Diam: 2.02 cm | |%FS: 35.14 % | |EF(Teich): 64.11 % | |ESV(Teich): 45.60 ml | |LVIDs: 3.34 cm | |SV(Teich): 81.48 ml | |RA Major: 3.97 cm | |RV Major: 6.38 cm | |RV Minor: 3.00 cm | |RVIDd: 2.83 cm | |LVEF MOD A2C: 61.36 % | |SV MOD A2C: 40.74 ml | |LVEF MOD A4C: 66.78 % | |SV MOD A4C: 63.78 ml | |EF Biplane: 64.31 % | |LVEDV MOD BP: 82.08 ml | |LVESV MOD BP: 29.29 ml | |LVEDV MOD A2C: 66.40 ml | |LVLd A2C: 7.02 cm | |LVEDV MOD A4C: 95.49 ml | |LVLd A4C: 7.52 cm | |LVESV MOD A2C: 25.65 ml | |LVLs A2C: 5.56 cm | |LVESV MOD A4C: 31.71 ml | |LVLs A4C: 5.96 cm | |LAESV(A-L): 26.55 ml | |LAESV Index (A-L): 14.12 ml/m2 | |LAAs A2C: 11.91 cm2 | |LAESV A-L A2C: 28.71 ml | |LALs A2C: 4.19 cm | |LAAs A4C: 9.83 cm2 | |LAESV A-L A4C: 21.90 ml | |LALs A4C: 3.74 cm | |RAAs: 8.69 cm2 | |RAESV A-L: 15.34 ml | |RAESV MOD: 15.47 ml | |RALs: 4.17 cm | |TAPSE: 2.93 cm | |AV maxP.47 mmHg | |AV meanP.16 mmHg | |AV Vmax: 1.45 m/s | |AV Vmean: 0.94 m/s | |AV VTI: 24.54 cm | |ELISHA Vmax: 2.55 cm2 | |ELISHA (VTI): 3.09 cm2 | |AVAI Vmax: 0.00 cm2/m2 | |AVAI (VTI): 0.00 cm2/m2 | |LVOT maxP.34 mmHg | |LVOT meanP.76 mmHg | |LVSI Dopp: 40.40 ml/m2 | |LVSV Dopp: 75.95 ml | |LVOT Vmax: 1.15 m/s | |LVOT Vmean: 0.77 m/s | |LVOT VTI: 23.58 cm | |MV A Marcos: 0.83 m/s | |MV Dec Juncos: 3.79 m/s2 | |MV DecT: 180.05 ms | |MV E Marcos: 0.68 m/s | |MV E/A Ratio: 0.82 | |MV PHT: 52.21 ms | |MVA By PHT: 4.21 cm2 | |Septal e': 0.05 m/s | |Septal E/e': 11.58 | |Lateral e': 0.10 m/s | |Lateral E/e': 6.48 | |RAP: 5 mmHg | |RV S': 0.14 m/s | |RVSP: 22.81 mmHg | |TR maxP.81 mmHg | |TR Vmax: 2.11 m/s | | | |Outside Machinist Supervisor: | |Authenticated by: NORM BURGER MD | |Report Date/Time: 10-21-2018 12:0:6 | | | |IMPRESSION: | |1. Overall left ventricular systolic function is normal with an EF between 60 - 65%. | |2. The right ventricle is normal in size and function. | |3. Lnru-pt-rtxjalyc mitral regurgitation is present. | + + + + + + + | Performing | Address | City/State/Zipcode | Phone Number | | Organization | | | | + + + + + | [facility] | [address] | [place] [address] | | + + + + + in this encounter Visit Diagnoses + + | Diagnosis | + + | SVT (supraventricular tachycardia) (HCC) | + + | Other specified cardiac dysrhythmias | + +"
--- OUTSIDE RECORDS SUMMARY | ~2018-10-28 | XMS | Encounter Summary ---
Demographics + + + | Address | [address] | | | [place] [address] | + + + | Home Phone | | + + + | Preferred Language | Unknown | + + + | Marital Status | | + + + | Faith Affiliation | Unknown | + + + | Race | Unknown | + + + | Ethnic Group | Unknown | + + + Author + + + | Author | Sonya Voxeet | + + + | Organization | [facility] | + + + | Address | Unknown | + + + | Phone | Unavailable | + + + Support + + +---------+ + | Name | Relationship | Address | Phone | + + +---------+ + | Jasiel Purdy | ECON | Unknown | | + + +---------+ + Care Team Providers + +------+ + | Care Museum Service Scheduler Name | Role | Phone | + [...] | | | [place] | tachycardia) ([facility]) | | | | | [id number] | | | | | | | [...] | | | | | | [place] [address] | | | | | | [phone] | | | | | | | [...] and | RADIOLOGY | | function. 3. Tabb-co-molmxlrl mitral regurgitation is present. | | + + + + + + | Narrative | Performed At | + + + | Patient Name: Yash Purdy Date of : 1955 [facility] | | Performing Physician: NORM BURGER, | RADIOLOGY | | MD | | | INDICATIONS SVT CONCLUSIONS 1. Overall | | | left ventricular systolic function is normal with an EF between 60 - | | | 65%. 2. The right ventricle is normal in size and function. 3. | | | Iejw-hd-fvxhlsqy mitral regurgitation is present. FINDINGS | | [...] is normal. Mitral Valve: | | | Grhy-qm-zklhubbv mitral regurgitation is present. Mitral Valve: No [...] MV A Marcos: 0.83 m/s MV Dec [place]: 3.79 m/s2 | | | MV DecT: [...] TR Vmax: 2.11 m/s | | | Information Systems Operator: Authenticated by: NORM BURGER MD Report | | | Date/Time: 10-21-2018 12:0:6 | | + + + + + | Procedure Note | + + | Augie Couch Results In - 10/21/2018 12:00 PM PDT Patient Name: Titi Purdy of | | : 5Accession: [id number] Physician: NORM BURGER MD | | INDICATIONS SVT | | CONCLUSIONS 1. Overall left ventricular systolic function is normal with an EF | | between 60 - 65%.2. The right ventricle is normal in size and function.3. | | Cbgy-yd-allkxpxi mitral regurgitation is present.FINDINGS--------ECG rhythm: Sinus | [...] valve is normal. Mitral Valve: | | Hddw-tv-vjaasawu mitral regurgitation is present. Mitral Valve: No [...] cmLVIDd: 5.15 cmLVPWd: 0.65 cmLVOT Area: 3.22 [id number] Diam: 2.02 cm%FS: 35.14 | | %EF(Teich): [...] | Index (A-L): 14.12 ml/m2LAAs A2C: 11.91 [id number] A-L A2C: 28.71 mlLALs A2C: 4.19 | | cmLAAs A4C: 9.83 [id number] A-L A4C: 21.90 mlLALs A4C: 3.74 cmRAAs: 8.69 ct9UOTNT | | A-L: 15.34 mlRAESV MOD: 15.47 mlRALs: 4.17 cmTAPSE: 2.93 cmAV maxP.47 | | mmHgAV meanP.16 mmHgAV Vmax: 1.45 m/Hakeem Vmean: 0.94 m/Hakeem VTI: 24.54 cmAVA | | Vmax: 2.55 cm2AVA (VTI): 3.09 zd5ZXML Vmax: 0.00 cm2/m2AVAI (VTI): 0.00 | | cm2/m2LVOT maxP.34 mmHgLVOT meanP.76 mmHgLVSI Dopp: 40.40 ml/m2LVSV Dopp: | | 75.95 mlLVOT Vmax: 1.15 m/sLVOT Vmean: 0.77 m/sLVOT VTI: 23.58 cmMV A Marcos: | | 0.83 m/sMV Dec [place]rill: 3.79 m/s2MV DecT: 180.05 msMV E Marcos: 0.68 m/sMV E/A Ratio: | | 0.82 MV PHT: 52.21 msMVA By PHT: 4.21 fn1Ztmbbu e': 0.05 m/sSeptal E/e': 11.58 | | [...] normal in size | | and function.3. Wyci-ls-xijhybjl mitral regurgitation is present. | |Thrombus: No [...] A Marcos: 0.83 m/s | |MV Dec Morrill: 3.79 m/s2 | |MV DecT: 180.05 ms [...] |TR Vmax: 2.11 m/s | | | |Information Systems Operator: | |Authenticated by: NORM BURGER MD | |Report Date/Time: 10-21-2018 12:0:6 | | | |IMPRESSION: | |1. Overall left ventricular systolic function is normal with an EF between 60 - 65%. | |2. The right ventricle is normal in size and function. | |3. Mhaz-xk-yqguitqx mitral regurgitation is present. | + + + + + + + | Performing | Address | City/State/Zipcode | Phone Number | | Organization | | | | + + + + + | [facility] | [address] | [place] [address] | | + + + + + in this encounter Visit Diagnoses + + | Diagnosis | + + | SVT (supraventricular tachycardia) (HCC) | + + | Other specified cardiac dysrhythmias | + +"
--- OUTSIDE RECORDS SUMMARY | ~2018-10-28 | XMS | Encounter Summary ---
Demographics + + + | Address | [address] | | | [place] [address] | + + + | Home Phone | | + + + | Preferred Language | Unknown | + + + | Marital Status | | + + + | Uatsdin Affiliation | Unknown | + + + | Race | Unknown | + + + | Ethnic Group | Unknown | + + + Author + + + | Author | Sonya [employer] | + + + | Organization | [facility] | + + + | Address | Unknown | + + + | Phone | Unavailable | + + + Support + + +---------+ + | Name | Relationship | Address | Phone | + + +---------+ + | Jasiel Purdy | ECON | Unknown | | + + +---------+ + Care Team Providers + +------+ + | Care It Software Developer Name | Role | Phone | + [...] | [place] | tachycardia) ([facility]) | | | | | [address] | | | | | | | [...] | | | | | | [place] [address] | | | | | | [phone] | | | | | | | [...] and | RADIOLOGY | | function. 3. Gqnj-be-hrvnzyqf mitral regurgitation is present. | | + + + + + + | Narrative | Performed At | + + + | Patient Name: Yash Purdy Date of : 1955 | [facility] | | Performing Physician: NORM BURGER, | RADIOLOGY | | MD | | | INDICATIONS SVT CONCLUSIONS 1. Overall | | | left ventricular systolic function is normal with an EF between 60 - | | | 65%. 2. The right ventricle is normal in size and function. 3. | | | Twjy-sw-mxmfroxi mitral regurgitation is present. FINDINGS | | [...] is normal. Mitral Valve: | | | Gazl-yu-xcnvsuhr mitral regurgitation is present. Mitral Valve: No [...] MV A Marcos: 0.83 m/s MV Dec [place]: 3.79 m/s2 | | | MV DecT: [...] TR Vmax: 2.11 m/s | | | Acid Concentrator: Authenticated by: NORM BURGER MD Report | | | Date/Time: 10-21-2018 12:0:6 | | + + + + + | Procedure Note | + + | Augie Couch Results In - 10/21/2018 12:00 PM PDT Patient Name: Titi Purdy of | | : 5Accession: [id number] Physician: NORM BURGER MD | | INDICATIONS SVT | | CONCLUSIONS 1. Overall left ventricular systolic function is normal with an EF | | between 60 - 65%.2. The right ventricle is normal in size and function.3. | | Hkss-qe-okwpuqdm mitral regurgitation is present.FINDINGS--------ECG rhythm: Sinus | [...] valve is normal. Mitral Valve: | | Odoc-vp-irgltchi mitral regurgitation is present. Mitral Valve: No [...] cmLVIDd: 5.15 cmLVPWd: 0.65 cmLVOT Area: 3.22 [id number] Diam: 2.02 cm%FS: 35.14 | | %EF(Teich): [...] | Index (A-L): 14.12 ml/m2LAAs A2C: 11.91 en2YLIQS A-L A2C: 28.71 mlLALs A2C: 4.19 | | cmLAAs A4C: 9.83 eb1CAUZI A-L A4C: 21.90 mlLALs A4C: 3.74 cmRAAs: 8.69 [id number] | | A-L: 15.34 mlRAESV MOD: 15.47 mlRALs: 4.17 cmTAPSE: 2.93 cmAV maxP.47 | | mmHgAV meanP.16 mmHgAV Vmax: 1.45 m/Hakeem Vmean: 0.94 m/Hakeem VTI: 24.54 cmAVA | | Vmax: 2.55 cm2AVA (VTI): 3.09 [id number] Vmax: 0.00 cm2/m2AVAI (VTI): 0.00 | | cm2/m2LVOT maxP.34 mmHgLVOT meanP.76 mmHgLVSI Dopp: 40.40 ml/m2LVSV Dopp: | | 75.95 mlLVOT Vmax: 1.15 m/sLVOT Vmean: 0.77 m/sLVOT VTI: 23.58 cmMV A Marcos: | | 0.83 m/sMV Dec [place]: 3.79 m/s2MV DecT: 180.05 msMV E Marcos: 0.68 m/sMV E/A Ratio: | | 0.82 MV PHT: 52.21 msMVA By PHT: 4.21 ml1Pbbkvr e': 0.05 m/sSeptal E/e': 11.58 | | [...] normal in size | | and function.3. Ownw-lo-bulpgwem mitral regurgitation is present. | |Thrombus: No [...] A Marcos: 0.83 m/s | |MV Dec [place]: 3.79 m/s2 | |MV DecT: 180.05 ms [...] |TR Vmax: 2.11 m/s | | | |Acid Concentrator: | |Authenticated by: NORM BURGER MD | |Report Date/Time: 10-21-2018 12:0:6 | | | |IMPRESSION: | |1. Overall left ventricular systolic function is normal with an EF between 60 - 65%. | |2. The right ventricle is normal in size and function. | |3. Pdjf-au-lkvolfia mitral regurgitation is present. | + + + + + + + | Performing | Address | City/State/Zipcode | Phone Number | | Organization | | | | + + + + + | [facility] | [address] | [place] [address] | | + + + + + in this encounter Visit Diagnoses + + | Diagnosis | + + | SVT (supraventricular tachycardia) (HCC) | + + | Other specified cardiac dysrhythmias | + +"
--- OUTSIDE RECORDS SUMMARY | ~2018-10-28 | XMS | Encounter Summary ---
Demographics + + + | Address | [address] | | | [place] [address] | + + + | Home Phone | | + + + | Preferred Language | Unknown | + + + | Marital Status | | + + + | Jain Affiliation | Unknown | + + + | Race | Unknown | + + + | Ethnic Group | Unknown | + + + Author + + + | Author | [facility] [employer] | + + + | Organization | [facility] [employer] | + + + | Address | Unknown | + + + | Phone | Unavailable | + + + Support + + +---------+ + | Name | Relationship | Address | Phone | + + +---------+ + | Jasiel Purdy | ECON | Unknown | | + + +---------+ + Care Team Providers + +------+ + | Care Geospatial Developer Name | Role | Phone | [...] | [place] | tachycardia) ([facility]) | | | | | [address] | | | | | | | [...] | | | | | | [place] [address] | | | | | | [phone] | | | | | | | [...] and | RADIOLOGY | | function. 3. Kvdc-hu-clghejig mitral regurgitation is present. | | + + + + + + | Narrative | Performed At | + + + | Patient Name: Yash Purdy Date of : 1955 | [facility] | | Performing Physician: NORM BURGER, | RADIOLOGY | | MD | | | INDICATIONS SVT CONCLUSIONS 1. Overall | | | left ventricular systolic function is normal with an EF between 60 - | | | 65%. 2. The right ventricle is normal in size and function. 3. | | | Icnq-ot-wlftyerg mitral regurgitation is present. FINDINGS | | [...] is normal. Mitral Valve: | | | Qlyy-wi-bwbxuzbn mitral regurgitation is present. Mitral Valve: No [...] MV A Marcos: 0.83 m/s MV Dec [place]: 3.79 m/s2 | | | MV DecT: [...] TR Vmax: 2.11 m/s | | | Furniture Assembly Supervisor: Authenticated by: NORM BURGER MD Report | | | Date/Time: 10-21-2018 12:0:6 | | + + + + + | Procedure Note | + + | Augie Couch Results In - 10/21/2018 12:00 PM PDT Patient Name: Titi Purdy of | | : 5Accession: [id number] Physician: NORM BURGER MD | | INDICATIONS SVT | | CONCLUSIONS 1. Overall left ventricular systolic function is normal with an EF | | between 60 - 65%.2. The right ventricle is normal in size and function.3. | | Phog-rw-inxgvgwm mitral regurgitation is present.FINDINGS--------ECG rhythm: Sinus | [...] valve is normal. Mitral Valve: | | Vdgt-sv-twknauaj mitral regurgitation is present. Mitral Valve: No [...] cmLVIDd: 5.15 cmLVPWd: 0.65 cmLVOT Area: 3.22 wh9GXMD Diam: 2.02 cm%FS: 35.14 | | %EF(Teich): [...] | Index (A-L): 14.12 ml/m2LAAs A2C: 11.91 nn2BMPME A-L A2C: 28.71 mlLALs A2C: 4.19 | | cmLAAs A4C: 9.83 ci7FCJJG A-L A4C: 21.90 mlLALs A4C: 3.74 cmRAAs: 8.69 [id number] | | A-L: 15.34 mlRAESV MOD: 15.47 mlRALs: 4.17 cmTAPSE: 2.93 cmAV maxP.47 | | mmHgAV meanP.16 mmHgAV Vmax: 1.45 m/Hakeem Vmean: 0.94 m/Hakeem VTI: 24.54 cmAVA | | Vmax: 2.55 cm2AVA (VTI): 3.09 [id number] Vmax: 0.00 cm2/m2AVAI (VTI): 0.00 | | cm2/m2LVOT maxP.34 mmHgLVOT meanP.76 mmHgLVSI Dopp: 40.40 ml/m2LVSV Dopp: | | 75.95 mlLVOT Vmax: 1.15 m/sLVOT Vmean: 0.77 m/sLVOT VTI: 23.58 cmMV A Marcos: | | 0.83 m/sMV Dec [place]: 3.79 m/s2MV DecT: 180.05 msMV E Marcos: 0.68 m/sMV E/A Ratio: | | 0.82 MV PHT: 52.21 msMVA By PHT: 4.21 [id number] e': 0.05 m/sSeptal E/e': 11.58 | | [...] normal in size | | and function.3. Olnm-ns-bfvredmg mitral regurgitation is present. | |Thrombus: No [...] A Marcos: 0.83 m/s | |MV Dec [place]: 3.79 m/s2 | |MV DecT: 180.05 ms [...] |TR Vmax: 2.11 m/s | | | |Furniture Assembly Supervisor: | |Authenticated by: NORM BURGER MD | |Report Date/Time: 10-21-2018 12:0:6 | | | |IMPRESSION: | |1. Overall left ventricular systolic function is normal with an EF between 60 - 65%. | |2. The right ventricle is normal in size and function. | |3. Kqwj-dn-oxmpvjin mitral regurgitation is present. | + + + + + + + | Performing | Address | City/State/Zipcode | Phone Number | | Organization | | | | + + + + + | [facility] | [address] | [place] [address] | | + + + + + in this encounter Visit Diagnoses + + | Diagnosis | + + | SVT (supraventricular tachycardia) (HCC) | + + | Other specified cardiac dysrhythmias | + +"
--- OUTSIDE RECORDS SUMMARY | ~2018-10-28 | XMS | Clinical Summary ---
Demographics + + + | Address | [address] | | | [place] [address] | + + + | Home Phone | | + + + | Preferred Language | Unknown | + + + | Marital Status | | + + + | Jewish Affiliation | Unknown | + + + | Race | Unknown | + + + | Ethnic Group | Unknown | + + + Author + + + | Author | [facility] [employer] | + + + | Organization | [facility] [employer] | + + + | Address | Unknown | + + + | Phone | Unavailable | + + + Support + + +---------+ + | Name | Relationship | Address | Phone | + + +---------+ + | Jasiel Schulz | ECON | Unknown | | + + +---------+ + Care Team Providers + +------+ + | Care Supervisor Inventory Merchandising Name | Role | Phone | + [...] | | | | | | tachycardia) ([facility]) | +--------+ + + + + | [...] [place], | | | | | | [place] [address] | | | | | | [phone] | | | | | | | [...] | STANDARD | | PDT | tachycardia) ([facility]) | results section. | + +--------+ + [...] and | RADIOLOGY | | function. 3. Kslq-se-ttepkxoa mitral regurgitation is present. | | + + + + + + | Narrative | Performed At | + + + | Patient Name: Kanu Schulz Date of : 1955 [facility] | | Performing Physician: NORM BURGER, | RADIOLOGY | | | | | INDICATIONS SVT CONCLUSIONS 1. Overall | | | left ventricular systolic function is normal with an EF between 60 - | | | 65%. 2. The right ventricle is normal in size and function. 3. | | | Gmrx-ov-wxcwcjqe mitral regurgitation is present. FINDINGS | | [...] is normal. Mitral Valve: | | | Khlb-jj-mhzjtyzq mitral regurgitation is present. Mitral Valve: No [...] MV A Marcos: 0.83 m/s MV Dec [place]: 3.79 m/s2 | | | MV DecT: [...] TR Vmax: 2.11 m/s | | | Product Safety Officer: Authenticated by: NORM BURGER MD Report | | | Date/Time: 10-21-2018 12:0:6 | | + + + + + | Procedure Note | + + | Khoa, Rad Results In - 10/21/2018 12:00 PM PDT Patient Name: Titi Schulz of | | : 5Accession: [id number] Physician: NORM BURGER MD | | INDICATIONS SVT | | CONCLUSIONS 1. Overall left ventricular systolic function is normal with an EF | | between 60 - 65%.2. The right ventricle is normal in size and function.3. | | Dkcc-ct-mtxvobou mitral regurgitation is present.FINDINGS--------ECG rhythm: Sinus | [...] valve is normal. Mitral Valve: | | Jfge-bw-xkghpfjq mitral regurgitation is present. Mitral Valve: No [...] cmLVIDd: 5.15 cmLVPWd: 0.65 cmLVOT Area: 3.22 [id number] Diam: 2.02 cm%FS: 35.14 | | %EF(Teich): [...] | Index (A-L): 14.12 ml/m2LAAs A2C: 11.91 [id number] A-L A2C: 28.71 mlLALs A2C: 4.19 | | cmLAAs A4C: 9.83 hf0IEFTK A-L A4C: 21.90 mlLALs A4C: 3.74 cmRAAs: 8.69 hb6XVYQO | | A-L: 15.34 mlRAESV MOD: 15.47 mlRALs: 4.17 cmTAPSE: 2.93 cmAV maxP.47 | | mmHgAV meanP.16 mmHgAV Vmax: 1.45 m/Hakeem Vmean: 0.94 m/Hakeem VTI: 24.54 cmAVA | | Vmax: 2.55 cm2AVA (VTI): 3.09 pe1MXSO Vmax: 0.00 cm2/m2AVAI (VTI): 0.00 | | cm2/m2LVOT maxP.34 mmHgLVOT meanP.76 mmHgLVSI Dopp: 40.40 ml/m2LVSV Dopp: | | 75.95 mlLVOT Vmax: 1.15 m/sLVOT Vmean: 0.77 m/sLVOT VTI: 23.58 cmMV A Marcos: | | 0.83 m/sMV Dec [place]: 3.79 m/s2MV DecT: 180.05 msMV E Marcos: 0.68 m/sMV E/A Ratio: | | 0.82 MV PHT: 52.21 msMVA By PHT: 4.21 vm3Ruayqc e': 0.05 m/sSeptal E/e': 11.58 | | [...] normal in size | | and function.3. Smfa-wj-sjdynsme mitral regurgitation is present. | |Thrombus: No [...] A Marcos: 0.83 m/s | |MV Dec [place]: 3.79 m/s2 | |MV DecT: 180.05 ms [...] |TR Vmax: 2.11 m/s | | | |Product Safety Officer: | |Authenticated by: NORM BURGER MD | |Report Date/Time: 10-21-2018 12:0:6 | | | |IMPRESSION: | |1. Overall left ventricular systolic function is normal with an EF between 60 - 65%. | |2. The right ventricle is normal in size and function. | |3. Ervg-al-kdfkwqoc mitral regurgitation is present. | + + + + + + + | Performing | Address | City/State/Zipcode | Phone Number | | Organization | | | | + + + + + | [facility] | [address] | [place] [address] | | + + + + + [...] +------+-------+ + | MEDICAID | [place] | [id number] | | | [address] | | | N | | | | [place] | | | [place] | | | | [phone] | | | [place] | | | | | + +--------+ [...] Self | [birth year] Home: | [address] | | | al/Fam | | 1955 | [phone] | [place] | | | brendan | | | [phone] | + +--------+ +--------+ + +"
--- OUTSIDE RECORDS SUMMARY | ~2018-10-28 | XMS | Clinical Summary ---
Demographics + + + | Address | [address] | | | [place] [address] | + + + | Home Phone | | + + + | Preferred Language | Unknown | + + + | Marital Status | | + + + | Lutheran Affiliation | Unknown | + + + | Race | Unknown | + + + | Ethnic Group | Unknown | + + + Author + + + | Author | [facility] | + + + | Organization | [facility] [employer] | + + + | Address | Unknown | + + + | Phone | Unavailable | + + + Support + + +---------+ + | Name | Relationship | Address | Phone | + + +---------+ + | Jasiel Schulz | ECON | Unknown | | + + +---------+ + Care Team Providers + +------+ + | Care Manager Pathology Name | Role | Phone | + [...] | | | | | | tachycardia) ([facility]) | +--------+ + + + + [...] [place], | | | | | | [place] [address] | | | | | | [phone] | | | | | | | [...] | STANDARD | | PDT | tachycardia) ([facility]) | results section. | + +--------+ [...] and | RADIOLOGY | | function. 3. Kbkx-ie-qlpavpiv mitral regurgitation is present. | | + + + + + + | Narrative | Performed At | + + + | Patient Name: Kanu Schulz Date of : 1955 [facility] | | Performing Physician: NORM BURGER, | RADIOLOGY | | | | | INDICATIONS SVT CONCLUSIONS 1. Overall | | | left ventricular systolic function is normal with an EF between 60 - | | | 65%. 2. The right ventricle is normal in size and function. 3. | | | Ehnz-rn-fxvtpevf mitral regurgitation is present. FINDINGS | | [...] is normal. Mitral Valve: | | | Bars-sh-icbdhqph mitral regurgitation is present. Mitral Valve: No [...] MV A Marcos: 0.83 m/s MV Dec [place]: 3.79 m/s2 | | | MV DecT: [...] TR Vmax: 2.11 m/s | | | Lawnmower Repair Mechanic: Authenticated by: NORM BURGER MD Report | | | Date/Time: 10-21-2018 12:0:6 | | + + + + + | Procedure Note | + + | Khoa, Rad Results In - 10/21/2018 12:00 PM PDT Patient Name: Titi Schulz of | | : 5Accession: [id number] Physician: NORM BURGER MD | | INDICATIONS SVT | | CONCLUSIONS 1. Overall left ventricular systolic function is normal with an EF | | between 60 - 65%.2. The right ventricle is normal in size and function.3. | | Mjop-ty-xddeiftm mitral regurgitation is present.FINDINGS--------ECG rhythm: Sinus | [...] valve is normal. Mitral Valve: | | Smin-ci-urzcltaj mitral regurgitation is present. Mitral Valve: No [...] cmLVIDd: 5.15 cmLVPWd: 0.65 cmLVOT Area: 3.22 fd2DBVL Diam: 2.02 cm%FS: 35.14 | | %EF(Teich): [...] | Index (A-L): 14.12 ml/m2LAAs A2C: 11.91 sd1SMACI A-L A2C: 28.71 mlLALs A2C: 4.19 | | cmLAAs A4C: 9.83 ci0KEETF A-L A4C: 21.90 mlLALs A4C: 3.74 cmRAAs: 8.69 ne0LEXZZ | | A-L: 15.34 mlRAESV MOD: 15.47 mlRALs: 4.17 cmTAPSE: 2.93 cmAV maxP.47 | | mmHgAV meanP.16 mmHgAV Vmax: 1.45 m/Hakeem Vmean: 0.94 m/Hakeem VTI: 24.54 cmAVA | | Vmax: 2.55 cm2AVA (VTI): 3.09 hl8DMGC Vmax: 0.00 cm2/m2AVAI (VTI): 0.00 | | cm2/m2LVOT maxP.34 mmHgLVOT meanP.76 mmHgLVSI Dopp: 40.40 ml/m2LVSV Dopp: | | 75.95 mlLVOT Vmax: 1.15 m/sLVOT Vmean: 0.77 m/sLVOT VTI: 23.58 cmMV A Marcos: | | 0.83 m/sMV Dec [place]: 3.79 m/s2MV DecT: 180.05 msMV E Marcos: 0.68 m/sMV E/A Ratio: | | 0.82 MV PHT: 52.21 msMVA By PHT: 4.21 sc1Gfulhi e': 0.05 m/sSeptal E/e': 11.58 | | [...] normal in size | | and function.3. Ijoq-fp-ymyrrnhy mitral regurgitation is present. | |Thrombus: No [...] A Marcos: 0.83 m/s | |MV Dec [place]: 3.79 m/s2 | |MV DecT: 180.05 ms [...] |TR Vmax: 2.11 m/s | | | |Lawnmower Repair Mechanic: | |Authenticated by: NORM BURGER MD | |Report Date/Time: 10-21-2018 12:0:6 | | | |IMPRESSION: | |1. Overall left ventricular systolic function is normal with an EF between 60 - 65%. | |2. The right ventricle is normal in size and function. | |3. Hppz-lh-kxsywueq mitral regurgitation is present. | + + + + + + + | Performing | Address | City/State/Zipcode | Phone Number | | Organization | | | | + + + + + | [facility] | [address] | [place] [address] | | + + + + + [...] +------+-------+ + | MEDICAID | [place] | [id number] | | | [address] | | | N | | | | [place] | | | [place] | | | | [phone] | | | MANAGER OF DISASTER RECOVERY | | | | | + +--------+ [...] Self | [birth year] | Home: | [address] | | | al/Fam | | 1955 | [phone] | [place] | | | brendan | | | [phone] | [phone] | + +--------+ +--------+ + +"
[~2018-10-28 18:04] MED LIST: ALBUTEROL2.5 MG/0.5 INH; BISOPROLOL FUMA10 MG PO; DILTIAZEM 24HR120 M1 PO; GLUCOTROL5 MG PO; HYDROCHLOROTHIA25 MG PO; LEVSIN0.125 MG PO; MAG-OXIDE400 MG PO
--- OUTSIDE RECORDS SUMMARY | 2018-10-28 18:06 | XMS ---
PreManage Notification: KANU SCHULZ Security Information Strategist Events No recent Security Events currently on file CRITERIA MET - [facility] - 2 Visits in 30 Days CARE PROVIDERS There are no care providers on record at this time. Kaylynn has no Care Guidelines for this patient. Marlyn VISIT COUNT (12 MO.) [address] [facility] [place]. TOTAL 2 NOTE: Visits indicate total known visits. ED/UCC VISIT TRACKING (12 MO.) 10/28/2018 18:[address] [facility] TYPE: Emergency COMPLAINT: - BLOOD IN STOOL 10/17/2018 09:53 [facility] TYPE: Emergency COMPLAINT: - WEAKNESS INPATIENT VISIT TRACKING (12 MO.) 10/17/2018 16:51 [facility] TYPE: Medical Surgical COMPLAINT: - HYPOTENSION [email or web address]
== END 2018-10-28 23:50 | disposition short-term general hospital (02) ==
LOC: ED 18:04
DX: K92.1 Melena (principal); K56.1 Intussusception; K63.9 Disease of intestine, unspecified; D64.9 Anemia, unspecified; E11.9 Type 2 diabetes mellitus without complications; Z86.73 Personal history of transient ischemic attack (TIA), and cerebral infarction without residual deficits; I10 Essential (primary) hypertension; Z91.041 Radiographic dye allergy status; Z88.0 Allergy status to penicillin; Z79.899 Other long term (current) drug therapy
CPT/HCPCS: 74022; 80053; 83880; 85025; 85610; 85730; 96360; 99285-25; J7030

== ENCOUNTER 2018-12-07 02:25 | Inpatient (IN) | payer OTHER ==
[~2018-12-07] VITALS: Ht 167.6 cm; Wt 56.6 kg
--- OUTSIDE RECORDS SUMMARY | ~2018-12-07 | XMS | Encounter Summary ---
Demographics + + + | Address | [address] | | | [place] [address] | + + + | Home Phone | | + + + | Preferred Language | Unknown | + + + | Marital Status | | + + + | Pentecostal Affiliation | Unknown | + + + | Race | Unknown | + + + | Ethnic Group | Unknown | + + + Author + + + | Author | [employer]a [employer] | + + + | Organization | [email or web address] [facility] | + + + | Address | Unknown | + + + | Phone | Unavailable | + + + Support + + +---------+ + | Name | Relationship | Address | Phone | + + +---------+ + | Jasiel Purdy | ECON | Unknown | | + + +---------+ + Care Team Providers + +------+ + | Care Magazine Publisher Name | Role | Phone | + +------+ + | Chad Ellington | PCP | | + +------+ + Encounter Details +--------+ + + + + | Date | Type | Department | Care Team | Description | +--------+ + + + + | 10/21/ | Ancillary | [facility] | Marco A Perkins MD | SVT | | 2019 | Orders | ECHO | [address] | (supraventricular | | | | | [place] | tachycardia) ([facility]) | | | | | [id number] | | | | | | | [...] Cardiology | [facility], | | | 2018 | consult | | MD Miya Jordan | | | | | | Dr [address], | | | | | | [place] [address] | | | | | | [phone] | | | | | | | | +--------+ + + + + as of this encounter Results ECHO outside interpretation standard (10/21/2018 8:48 AM) + + + | Impressions | Performed At | + + + | 1. Overall left ventricular systolic function is normal with an EF | [facility] | | between 60 - 65%. 2. The right ventricle is normal in size and | [facility] | | function. 3. Kykw-dl-msutyzff mitral regurgitation is present. | | + + + + + + | Narrative | Performed At | + + + | Patient Name: Yash Purdy Date of : 1955 | [facility] | | Performing Physician: NORM BURGER, | RADIOLOGY | | MD | | | INDICATIONS SVT CONCLUSIONS 1. Overall | | | left ventricular systolic function is normal with an EF between 60 - | | | 65%. 2. The right ventricle is normal in size and function. 3. | | | Knci-hf-tdpcvagg mitral regurgitation is present. FINDINGS | | [...] is normal. Mitral Valve: | | | Cevo-wu-jksakynh mitral regurgitation is present. Mitral Valve: No [...] MV A Marcos: 0.83 m/s MV Dec [place]: 3.79 m/s2 | | | MV DecT: [...] TR Vmax: 2.11 m/s | | | Admin Asst: Authenticated by: NORM BURGER MD Report | | | Date/Time: 10-21-2018 12:0:6 | | + + + + + | Procedure Note | + + | Augie Couch Results In - 10/21/2018 12:00 PM PDT Patient Name: Titi Purdy of | | : 5Accession: [id number] Physician: NORM BURGER MD | | INDICATIONS SVT | | CONCLUSIONS 1. Overall left ventricular systolic function is normal with an EF | | between 60 - 65%.2. The right ventricle is normal in size and function.3. | | Vohr-kh-hdapeacn mitral regurgitation is present.FINDINGS--------ECG rhythm: Sinus | [...] valve is normal. Mitral Valve: | | Nfas-yx-mleouwwp mitral regurgitation is present. Mitral Valve: No [...] cmLVIDd: 5.15 cmLVPWd: 0.65 cmLVOT Area: 3.22 pn9IJWN Diam: 2.02 cm%FS: 35.14 | | %EF(Teich): [...] | Index (A-L): 14.12 ml/m2LAAs A2C: 11.91 jk6ASBWV A-L A2C: 28.71 mlLALs A2C: 4.19 | | cmLAAs A4C: 9.83 vs6ROYOX A-L A4C: 21.90 mlLALs A4C: 3.74 cmRAAs: 8.69 mq8MFVGZ | | A-L: 15.34 mlRAESV MOD: 15.47 mlRALs: 4.17 cmTAPSE: 2.93 cmAV maxP.47 | | mmHgAV meanP.16 mmHgAV Vmax: 1.45 m/Hakeem Vmean: 0.94 m/Hakeem VTI: 24.54 cmAVA | | Vmax: 2.55 cm2AVA (VTI): 3.09 fj6ZQXB Vmax: 0.00 cm2/m2AVAI (VTI): 0.00 | | cm2/m2LVOT maxP.34 mmHgLVOT meanP.76 mmHgLVSI Dopp: 40.40 ml/m2LVSV Dopp: | | 75.95 mlLVOT Vmax: 1.15 m/sLVOT Vmean: 0.77 m/sLVOT VTI: 23.58 cmMV A Marcos: | | 0.83 m/sMV Dec [place]: 3.79 m/s2MV DecT: 180.05 msMV E Marcos: 0.68 m/sMV E/A Ratio: | | 0.82 MV PHT: 52.21 msMVA By PHT: 4.21 pn0Ocgjlk e': 0.05 m/sSeptal E/e': 11.58 | | Lateral e': 0.10 m/sLateral E/e': 6.48 RAP: 5 mmHgRV S': 0.14 m/sRVSP: 22.81 | | mmHgTR maxP.81 mmHgTR Vmax: 2.11 m/sSonographer: Authenticated by: NORM | | Cholo BURGER Date/Time: 10-21-2018 12:0:6IMPRESSION:1. Overall left ventricular systolic | | function is normal with an EF between 60 - 65%.2. The right ventricle is normal in size | | and function.3. Rtuv-jp-pdgljhof mitral regurgitation is present. | |Thrombus: No [...] A Marcos: 0.83 m/s | |MV Dec [place]: 3.79 m/s2 | |MV DecT: 180.05 ms [...] |TR Vmax: 2.11 m/s | | | |Admin Asst: | |Authenticated by: NORM BURGER MD | |Report Date/Time: 10-21-2018 12:0:6 | | | |IMPRESSION: | |1. Overall left ventricular systolic function is normal with an EF between 60 - 65%. | |2. The right ventricle is normal in size and function. | |3. Uidh-pq-pouwfabm mitral regurgitation is present. | + + + + + + + | Performing | Address | City/State/Zipcode | Phone Number | | Organization | | | | + + + + + | [facility] | [address] | [place] [address] | | + + + + + in this encounter Visit Diagnoses + + | Diagnosis | + + | SVT (supraventricular tachycardia) (HCC) | + + | Other specified cardiac dysrhythmias | + +"
--- OUTSIDE RECORDS SUMMARY | ~2018-12-07 | XMS | Clinical Summary ---
Demographics + + + | Address | [address] | | | [place] [address] | + + + | Home Phone | | + + + | Preferred Language | Unknown | + + + | Marital Status | | + + + | Jainism Affiliation | Unknown | + + + | Race | Unknown | + + + | Ethnic Group | Unknown | + + + Author + + + | Author | [employer]a [employer] | + + + | Organization | [facility] | + + + | Address | Unknown | + + + | Phone | Unavailable | + + + Support + + +---------+ + | Name | Relationship | Address | Phone | + + +---------+ + | Jasiel Schulz | ECON | Unknown | | + + +---------+ + Care Team Providers + +------+ + | Care Aquatics Specialist Name | Role | Phone | + +------+ + | Chad Ellington | PP | | + +------+ + Allergies Not on File Current Medications Not on file Active Problems Not on file Encounters +--------+ + + + + | Date | Type | Specialty | Care Team | Description | +--------+ + + + + | 10/21/ | Ancillary | | Marco A Perkins MD | SVT | | 2018 | Procedure | | | (supraventricular | | | | | | tachycardia) ([facility]) | +--------+ + + + + | 10/21/ | Ancillary | | Marco A Perkins MD | SVT | | 2018 | Orders | | | (supraventricular | | | | | | tachycardia) (HCC) | +--------+ + + + + from Last 3 Months Social History + +-------+ +--------+------+ | Tobacco [...] | 2019 | consult | | MD [address] | | | | | | Dr [address], | | | | | | [place] [address] | | | | | | [phone] | | | | | | | [...] Vaccine: Influenza | | | | | (Season Ended) | 9 | | | + + + + + Procedures + +--------+ + + + | [...] | STANDARD | | PDT | tachycardia) ([facility]) | results section. | + +--------+ + + + from Last 3 Months Results ECHO outside interpretation standard (10/21/2018 8:48 AM) + + + | Impressions | Performed At | + + + | 1. Overall left ventricular systolic function is normal with an EF | [facility] | | between 60 - 65%. 2. The right ventricle is normal in size and | RADIOLOGY | | function. 3. Uryb-bk-mdwxjwpf mitral regurgitation is present. | | + + + + + + | Narrative | Performed At | + + + | Patient Name: Kanu Schulz Date of : 1955 [facility] | | Performing Physician: NORM BURGER, | RADIOLOGY | | | | | INDICATIONS SVT CONCLUSIONS 1. Overall | | | left ventricular systolic function is normal with an EF between 60 - | | | 65%. 2. The right ventricle is normal in size and function. 3. | | | Cumz-qg-iuwtkfpz mitral regurgitation is present. FINDINGS | | [...] is normal. Mitral Valve: | | | Crly-he-uoonjlgn mitral regurgitation is present. Mitral Valve: No [...] MV A Marcos: 0.83 m/s MV Dec [place]: 3.79 m/s2 | | | MV DecT: [...] TR Vmax: 2.11 m/s | | | [employer] Decorator: Authenticated by: NORM BURGER MD Report | | | Date/Time: 10-21-2018 12:0:6 | | + + + + + | Procedure Note | + + | Khoa, Rad Results In - 10/21/2018 12:00 PM PDT Patient Name: Titi Schulz of | | : 5Accession: [id number] Physician: NORM BURGER MD | | INDICATIONS SVT | | CONCLUSIONS 1. Overall left ventricular systolic function is normal with an EF | | between 60 - 65%.2. The right ventricle is normal in size and function.3. | | Nwum-ot-oobswqhz mitral regurgitation is present.FINDINGS--------ECG rhythm: Sinus | [...] valve is normal. Mitral Valve: | | Kjcq-rq-psafwsge mitral regurgitation is present. Mitral Valve: No [...] cmLVIDd: 5.15 cmLVPWd: 0.65 cmLVOT Area: 3.22 oj5JWOS Diam: 2.02 cm%FS: 35.14 | | %EF(Teich): [...] | Index (A-L): 14.12 ml/m2LAAs A2C: 11.91 yt3PTQES A-L A2C: 28.71 mlLALs A2C: 4.19 | | cmLAAs A4C: 9.83 il5YTDVD A-L A4C: 21.90 mlLALs A4C: 3.74 cmRAAs: 8.69 px7MUCSZ | | A-L: 15.34 mlRAESV MOD: 15.47 mlRALs: 4.17 cmTAPSE: 2.93 cmAV maxP.47 | | mmHgAV meanP.16 mmHgAV Vmax: 1.45 m/Hakeem Vmean: 0.94 m/Hakeem VTI: 24.54 cmAVA | | Vmax: 2.55 cm2AVA (VTI): 3.09 zv2PBET Vmax: 0.00 cm2/m2AVAI (VTI): 0.00 | | cm2/m2LVOT maxP.34 mmHgLVOT meanP.76 mmHgLVSI Dopp: 40.40 ml/m2LVSV Dopp: | | 75.95 mlLVOT Vmax: 1.15 m/sLVOT Vmean: 0.77 m/sLVOT VTI: 23.58 cmMV A Marcos: | | 0.83 m/sMV Dec [place]: 3.79 m/s2MV DecT: 180.05 msMV E Marcos: 0.68 m/sMV E/A Ratio: | | 0.82 MV PHT: 52.21 msMVA By PHT: 4.21 og6Hxxjtl e': 0.05 m/sSeptal E/e': 11.58 | | Lateral e': 0.10 m/sLateral E/e': 6.48 RAP: 5 mmHgRV S': 0.14 m/sRVSP: 22.81 | | mmHgTR maxP.81 mmHgTR Vmax: 2.11 m/sSonographer: Authenticated by: NORM | | VILMA BURGERepkarla Date/Time: 10-21-2018 12:0:6IMPRESSION:1. Overall left ventricular systolic | | function is normal with an EF between 60 - 65%.2. The right ventricle is normal in size | | and function.3. Gwwh-sy-ksuppyzg mitral regurgitation is present. | |Thrombus: No [...] A Marcos: 0.83 m/s | |MV Dec [place]: 3.79 m/s2 | |MV DecT: 180.05 ms [...] |TR Vmax: 2.11 m/s | | | |Streets [employer] Buildings Decorator: | |Authenticated by: NORM BURGER MD | |Report Date/Time: 10-21-2018 12:0:6 | | | |IMPRESSION: | |1. Overall left ventricular systolic function is normal with an EF between 60 - 65%. | |2. The right ventricle is normal in size and function. | |3. Daiv-kt-zjsmvjzo mitral regurgitation is present. 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
--- OUTSIDE RECORDS SUMMARY | ~2018-12-07 | XMS | Encounter Summary ---
Demographics + + + | Address | [address] | | | [place] [address] | + + + | Home Phone | | + + + | Preferred Language | Unknown | + + + | Marital Status | | + + + | Christianity Affiliation | Unknown | + + + | Race | Unknown | + + + | Ethnic Group | Unknown | + + + Author + + + | Author | Sonya Qustodio | + + + | Organization | [facility] | + + + | Address | Unknown | + + + | Phone | Unavailable | + + + Support + + +---------+ + | Name | Relationship | Address | Phone | + + +---------+ + | Jasiel Purdy | ECON | Unknown | | + + +---------+ + Care Team Providers + +------+ + | Care Fashion Illustrator Name | Role | Phone | + [...] | | | [place] | tachycardia) ([facility]) | | | | | [phone] | | | | | | | [...] | | | | | | [place] [address] | | | | | | [phone] | | | | | | | [...] and | RADIOLOGY | | function. 3. Jtss-vl-dxhmtcgi mitral regurgitation is present. | | + + + + + + | Narrative | Performed At | + + + | Patient Name: Yash Purdy Date of : 1955 | [facility] | | Performing Physician: NORM BURGER, | RADIOLOGY | | MD | | | INDICATIONS SVT CONCLUSIONS 1. Overall | | | left ventricular systolic function is normal with an EF between 60 - | | | 65%. 2. The right ventricle is normal in size and function. 3. | | | Lcos-pv-nxrgvewo mitral regurgitation is present. FINDINGS | | [...] is normal. Mitral Valve: | | | Xzdy-mt-uichetxu mitral regurgitation is present. Mitral Valve: No [...] MV A Marcos: 0.83 m/s MV Dec [facility] [place]: 3.79 m/s2 | | | MV DecT: [...] TR Vmax: 2.11 m/s | | | Interpersonal Communications Professor: Authenticated by: NORM BURGER MD Report | | | Date/Time: 10-21-2018 12:0:6 | | + + + + + | Procedure Note | + + | Augie Couch Results In - 10/21/2018 12:00 PM PDT Patient Name: Titi Purdy of | | : 5Accession: [id number] Physician: NORM BURGER MD | | INDICATIONS SVT | | CONCLUSIONS 1. Overall left ventricular systolic function is normal with an EF | | between 60 - 65%.2. The right ventricle is normal in size and function.3. | | Jamy-yu-vhzuaegf mitral regurgitation is present.FINDINGS--------ECG rhythm: Sinus | [...] valve is normal. Mitral Valve: | | Evcr-bo-ggiakejz mitral regurgitation is present. Mitral Valve: No [...] cmLVIDd: 5.15 cmLVPWd: 0.65 cmLVOT Area: 3.22 dm1KNTY Diam: 2.02 cm%FS: 35.14 | | %EF(Teich): [...] | Index (A-L): 14.12 ml/m2LAAs A2C: 11.91 vk7TJHZJ A-L A2C: 28.71 mlLALs A2C: 4.19 | | cmLAAs A4C: 9.83 jf7EWOYX A-L A4C: 21.90 mlLALs A4C: 3.74 cmRAAs: 8.69 xg0MMFBD | | A-L: 15.34 mlRAESV MOD: 15.47 mlRALs: 4.17 cmTAPSE: 2.93 cmAV maxP.47 | | mmHgAV meanP.16 mmHgAV Vmax: 1.45 m/Hakeem Vmean: 0.94 m/Hakeem VTI: 24.54 cmAVA | | Vmax: 2.55 cm2AVA (VTI): 3.09 ih5LADD Vmax: 0.00 cm2/m2AVAI (VTI): 0.00 | | cm2/m2LVOT maxP.34 mmHgLVOT meanP.76 mmHgLVSI Dopp: 40.40 ml/m2LVSV Dopp: | | 75.95 mlLVOT Vmax: 1.15 m/sLVOT Vmean: 0.77 m/sLVOT VTI: 23.58 cmMV A Marcos: | | 0.83 m/sMV Dec [facility] [place]: 3.79 m/s2MV DecT: 180.05 msMV E Marcos: 0.68 m/sMV E/A Ratio: | | 0.82 MV PHT: 52.21 msMVA By PHT: 4.21 dj6Ibmbuk e': 0.05 m/sSeptal E/e': 11.58 | | [...] normal in size | | and function.3. Gnbx-ew-nanenpli mitral regurgitation is present. | |Thrombus: No [...] A Marcos: 0.83 m/s | |MV Dec [facility]: 3.79 m/s2 | |MV DecT: 180.05 ms [...] |TR Vmax: 2.11 m/s | | | |Interpersonal Communications Professor: | |Authenticated by: NORM BURGER MD | |Report Date/Time: 10-21-2018 12:0:6 | | | |IMPRESSION: | |1. Overall left ventricular systolic function is normal with an EF between 60 - 65%. | |2. The right ventricle is normal in size and function. | |3. Zoib-xz-gvlattpw mitral regurgitation is present. | + + + + + + + | Performing | Address | City/State/Zipcode | Phone Number | | Organization | | | | + + + + + | [facility] | [address] | [place] [address] | | + + + + + in this encounter Visit Diagnoses + + | Diagnosis | + + | SVT (supraventricular tachycardia) (HCC) | + + | Other specified cardiac dysrhythmias | + +"
--- OUTSIDE RECORDS SUMMARY | ~2018-12-07 | XMS | Encounter Summary ---
Demographics + + + | Address | [address] | | | [place] [address] | + + + | Home Phone | | + + + | Preferred Language | Unknown | + + + | Marital Status | | + + + | Jewish Affiliation | Unknown | + + + | Race | Unknown | + + + | Ethnic Group | Unknown | + + + Author + + + | Author | Sonya Mapplas | + + + | Organization | [facility] | + + + | Address | Unknown | + + + | Phone | Unavailable | + + + Support + + +---------+ + | Name | Relationship | Address | Phone | + + +---------+ + | Jaseil Purdy | ECON | Unknown | | + + +---------+ + Care Team Providers + +------+ + | Care Workers Compensation Claims Analyst Name | Role | Phone | + [...] | | | [place] | tachycardia) ([facility]) | | | | | [phone] | | | | | | | [...] | | | | | | [place] [address] | | | | | | [phone] | | | | | | | [...] and | RADIOLOGY | | function. 3. Otyv-lr-upndxxda mitral regurgitation is present. | | + + + + + + | Narrative | Performed At | + + + | Patient Name: Yash Purdy Date of : 1955 [facility] | | Performing Physician: NORM BURGER, | RADIOLOGY | | MD | | | INDICATIONS SVT CONCLUSIONS 1. Overall | | | left ventricular systolic function is normal with an EF between 60 - | | | 65%. 2. The right ventricle is normal in size and function. 3. | | | Cmmg-by-ojgdqarc mitral regurgitation is present. FINDINGS | | [...] is normal. Mitral Valve: | | | Xgjf-cy-neokwxou mitral regurgitation is present. Mitral Valve: No [...] MV A Marcos: 0.83 m/s MV Dec [place]: 3.79 m/s2 | | | MV DecT: [...] TR Vmax: 2.11 m/s | | | Signwriter: Authenticated by: NORM BURGER MD Report | | | Date/Time: 10-21-2018 12:0:6 | | + + + + + | Procedure Note | + + | Augie Couch Results In - 10/21/2018 12:00 PM PDT Patient Name: Titi Purdy of | | : 5Accession: [id number] Physician: NORM BURGER MD | | INDICATIONS SVT | | CONCLUSIONS 1. Overall left ventricular systolic function is normal with an EF | | between 60 - 65%.2. The right ventricle is normal in size and function.3. | | Omtq-rv-zynntlvv mitral regurgitation is present.FINDINGS--------ECG rhythm: Sinus | [...] valve is normal. Mitral Valve: | | Dobu-cg-gipudzud mitral regurgitation is present. Mitral Valve: No [...] cmLVIDd: 5.15 cmLVPWd: 0.65 cmLVOT Area: 3.22 qy9ZZRJ Diam: 2.02 cm%FS: 35.14 | | %EF(Teich): [...] | Index (A-L): 14.12 ml/m2LAAs A2C: 11.91 pr1NCGHI A-L A2C: 28.71 mlLALs A2C: 4.19 | | cmLAAs A4C: 9.83 ja8XTOLF A-L A4C: 21.90 mlLALs A4C: 3.74 cmRAAs: 8.69 jz2EFZFS | | A-L: 15.34 mlRAESV MOD: 15.47 mlRALs: 4.17 cmTAPSE: 2.93 cmAV maxP.47 | | mmHgAV meanP.16 mmHgAV Vmax: 1.45 m/Hakeem Vmean: 0.94 m/Hakeem VTI: 24.54 cmAVA | | Vmax: 2.55 cm2AVA (VTI): 3.09 tr4BJOP Vmax: 0.00 cm2/m2AVAI (VTI): 0.00 | | cm2/m2LVOT maxP.34 mmHgLVOT meanP.76 mmHgLVSI Dopp: 40.40 ml/m2LVSV Dopp: | | 75.95 mlLVOT Vmax: 1.15 m/sLVOT Vmean: 0.77 m/sLVOT VTI: 23.58 cmMV A Marcos: | | 0.83 m/sMV Dec [place]vin: 3.79 m/s2MV DecT: 180.05 msMV E Marcos: 0.68 m/sMV E/A Ratio: | | 0.82 MV PHT: 52.21 msMVA By PHT: 4.21 nm4Epkqxh e': 0.05 m/sSeptal E/e': 11.58 | | [...] normal in size | | and function.3. Uwyv-rw-twhdakxm mitral regurgitation is present. | |Thrombus: No [...] A Marcos: 0.83 m/s | |MV Dec [place]: 3.79 m/s2 | |MV DecT: 180.05 ms [...] |TR Vmax: 2.11 m/s | | | |Signwriter: | |Authenticated by: NORM BURGER MD | |Report Date/Time: 10-21-2018 12:0:6 | | | |IMPRESSION: | |1. Overall left ventricular systolic function is normal with an EF between 60 - 65%. | |2. The right ventricle is normal in size and function. | |3. Xmyu-of-rfmxzkiq mitral regurgitation is present. | + + + + + + + | Performing | Address | City/State/Zipcode | Phone Number | | Organization | | | | + + + + + | [facility] | [address] | [place] [address] | | + + + + + in this encounter Visit Diagnoses + + | Diagnosis | + + | SVT (supraventricular tachycardia) (HCC) | + + | Other specified cardiac dysrhythmias | + +"
--- OUTSIDE RECORDS SUMMARY | ~2018-12-07 | XMS | Encounter Summary ---
Demographics + + + | Address | [address] | | | [place] [address] | + + + | Home Phone | | + + + | Preferred Language | Unknown | + + + | Marital Status | | + + + | Zoroastrianism Affiliation | Unknown | + + + | Race | Unknown | + + + | Ethnic Group | Unknown | + + + Author + + + | Author | [employer] | + + + | Organization | [facility] | + + + | Address | Unknown | + + + | Phone | Unavailable | + + + Support + + +---------+ + | Name | Relationship | Address | Phone | + + +---------+ + | Jasiel Purdy | ECON | Unknown | | + + +---------+ + Care Team Providers + +------+ + | Care Die Inspector Name | Role | Phone | + [...] | | | [place] | tachycardia) ([facility]) | | | | | [address] | | | | | | | [...] | | | | | | [place] [address] | | | | | | [phone] | | | | | | | [...] and | RADIOLOGY | | function. 3. Ohxn-pj-bvgzgqei mitral regurgitation is present. | | + + + + + + | Narrative | Performed At | + + + | Patient Name: Yash Purdy Date of : 1955 [facility] | | Performing Physician: NORM BURGER, | RADIOLOGY | | MD | | | INDICATIONS SVT CONCLUSIONS 1. Overall | | | left ventricular systolic function is normal with an EF between 60 - | | | 65%. 2. The right ventricle is normal in size and function. 3. | | | Zhfq-da-ymqmmxae mitral regurgitation is present. FINDINGS | | [...] is normal. Mitral Valve: | | | Pcys-jy-nkkukjhz mitral regurgitation is present. Mitral Valve: No [...] MV A Marcos: 0.83 m/s MV Dec [place]: 3.79 m/s2 | | | MV DecT: [...] TR Vmax: 2.11 m/s | | | Resource Manager Forester: Authenticated by: NORM BURGER MD Report | | | Date/Time: 10-21-2018 12:0:6 | | + + + + + | Procedure Note | + + | Augie Couch Results In - 10/21/2018 12:00 PM PDT Patient Name: Titi Purdy of | | : 5Accession: [id number] Physician: NORM BURGER MD | | INDICATIONS SVT | | CONCLUSIONS 1. Overall left ventricular systolic function is normal with an EF | | between 60 - 65%.2. The right ventricle is normal in size and function.3. | | Rkgd-pb-fnantqwm mitral regurgitation is present.FINDINGS--------ECG rhythm: Sinus | [...] valve is normal. Mitral Valve: | | Piyh-qq-hmcaergm mitral regurgitation is present. Mitral Valve: No [...] cmLVIDd: 5.15 cmLVPWd: 0.65 cmLVOT Area: 3.22 km1QXTU Diam: 2.02 cm%FS: 35.14 | | %EF(Teich): [...] | Index (A-L): 14.12 ml/m2LAAs A2C: 11.91 np8XGHKV A-L A2C: 28.71 mlLALs A2C: 4.19 | | cmLAAs A4C: 9.83 io3URVKL A-L A4C: 21.90 mlLALs A4C: 3.74 cmRAAs: 8.69 zd0EIKQL | | A-L: 15.34 mlRAESV MOD: 15.47 mlRALs: 4.17 cmTAPSE: 2.93 cmAV maxP.47 | | mmHgAV meanP.16 mmHgAV Vmax: 1.45 m/Hakeem Vmean: 0.94 m/Hakeem VTI: 24.54 cmAVA | | Vmax: 2.55 cm2AVA (VTI): 3.09 gm6YCYV Vmax: 0.00 cm2/m2AVAI (VTI): 0.00 | | cm2/m2LVOT maxP.34 mmHgLVOT meanP.76 mmHgLVSI Dopp: 40.40 ml/m2LVSV Dopp: | | 75.95 mlLVOT Vmax: 1.15 m/sLVOT Vmean: 0.77 m/sLVOT VTI: 23.58 cmMV A Marcos: | | 0.83 m/sMV Dec [place]: 3.79 m/s2MV DecT: 180.05 msMV E Marcos: 0.68 m/sMV E/A Ratio: | | 0.82 MV PHT: 52.21 msMVA By PHT: 4.21 ew7Cnjesk e': 0.05 m/sSeptal E/e': 11.58 | | [...] normal in size | | and function.3. Wehv-kh-tfjnedio mitral regurgitation is present. | |Thrombus: No [...] A Marcos: 0.83 m/s | |MV Dec [place]: 3.79 m/s2 | |MV DecT: 180.05 ms [...] |TR Vmax: 2.11 m/s | | | |Resource Manager Forester: | |Authenticated by: NORM BURGER MD | |Report Date/Time: 10-21-2018 12:0:6 | | | |IMPRESSION: | |1. Overall left ventricular systolic function is normal with an EF between 60 - 65%. | |2. The right ventricle is normal in size and function. | |3. Uere-sm-kgyeiesc mitral regurgitation is present. | + + + + + + + | Performing | Address | City/State/Zipcode | Phone Number | | Organization | | | | + + + + + | [facility] | [address] | [place] [address] | | + + + + + in this encounter Visit Diagnoses + + | Diagnosis | + + | SVT (supraventricular tachycardia) (HCC) | + + | Other specified cardiac dysrhythmias | + +"
--- OUTSIDE RECORDS SUMMARY | ~2018-12-07 | XMS | Clinical Summary ---
Demographics + + + | Address | [address] | | | [place] [address] | + + + | Home Phone | | + + + | Preferred Language | Unknown | + + + | Marital Status | | + + + | Voodoo Affiliation | Unknown | + + + | Race | Unknown | + + + | Ethnic Group | Unknown | + + + Author + + + | Author | Sonya Revision3 | + + + | Organization | [facility] | + + + | Address | Unknown | + + + | Phone | Unavailable | + + + Support + + +---------+ + | Name | Relationship | Address | Phone | + + +---------+ + | Jasiel Schulz | ECON | Unknown | | + + +---------+ + Care Team Providers + +------+ + | Care Local Area Network Administrator Name | Role | Phone | + [...] | | | | | | tachycardia) ([facility]) | +--------+ + + + + | [...] [place], | | | | | | [place] [address] | | | | | | [phone] | | | | | | | [...] | STANDARD | | PDT | tachycardia) ([facility]) | results section. | + +--------+ + [...] and | RADIOLOGY | | function. 3. Agay-sq-srsudnug mitral regurgitation is present. | | + + + + + + | Narrative | Performed At | + + + | Patient Name: Kanu Schulz Date of : 1955 [facility] | | Performing Physician: NORM BURGER, | RADIOLOGY | | | | | INDICATIONS SVT CONCLUSIONS 1. Overall | | | left ventricular systolic function is normal with an EF between 60 - | | | 65%. 2. The right ventricle is normal in size and function. 3. | | | Vzpj-xz-evrtpzap mitral regurgitation is present. FINDINGS | | [...] is normal. Mitral Valve: | | | Cksk-qa-ebvdkbyo mitral regurgitation is present. Mitral Valve: No [...] MV A Marcos: 0.83 m/s MV Dec [place]: 3.79 m/s2 | | | MV DecT: [...] TR Vmax: 2.11 m/s | | | Mammography Supervisor: Authenticated by: NORM BURGER MD Report | | | Date/Time: 10-21-2018 12:0:6 | | + + + + + | Procedure Note | + + | Khoa, Rad Results In - 10/21/2018 12:00 PM PDT Patient Name: Titi Schulz of | | : 5Accession: [id number] Physician: NORM BURGER MD | | INDICATIONS SVT | | CONCLUSIONS 1. Overall left ventricular systolic function is normal with an EF | | between 60 - 65%.2. The right ventricle is normal in size and function.3. | | Rrxx-ho-osgozvow mitral regurgitation is present.FINDINGS--------ECG rhythm: Sinus | [...] valve is normal. Mitral Valve: | | Wijj-fb-fqplfshn mitral regurgitation is present. Mitral Valve: No [...] cmLVIDd: 5.15 cmLVPWd: 0.65 cmLVOT Area: 3.22 zz5OJAK Diam: 2.02 cm%FS: 35.14 | | %EF(Teich): [...] | Index (A-L): 14.12 ml/m2LAAs A2C: 11.91 js5UTABA A-L A2C: 28.71 mlLALs A2C: 4.19 | | cmLAAs A4C: 9.83 pg5LJCYO A-L A4C: 21.90 mlLALs A4C: 3.74 cmRAAs: 8.69 fm4ZFZNL | | A-L: 15.34 mlRAESV MOD: 15.47 mlRALs: 4.17 cmTAPSE: 2.93 cmAV maxP.47 | | mmHgAV meanP.16 mmHgAV Vmax: 1.45 m/Hakeem Vmean: 0.94 m/Hakeem VTI: 24.54 cmAVA | | Vmax: 2.55 cm2AVA (VTI): 3.09 sk4RRVM Vmax: 0.00 cm2/m2AVAI (VTI): 0.00 | | cm2/m2LVOT maxP.34 mmHgLVOT meanP.76 mmHgLVSI Dopp: 40.40 ml/m2LVSV Dopp: | | 75.95 mlLVOT Vmax: 1.15 m/sLVOT Vmean: 0.77 m/sLVOT VTI: 23.58 cmMV A Marcos: | | 0.83 m/sMV Dec [place]: 3.79 m/s2MV DecT: 180.05 msMV E Marcos: 0.68 m/sMV E/A Ratio: | | 0.82 MV PHT: 52.21 msMVA By PHT: 4.21 if6Gdbhic e': 0.05 m/sSeptal E/e': 11.58 | | [...] normal in size | | and function.3. Orqd-xy-btysztir mitral regurgitation is present. | |Thrombus: No [...] A Marcos: 0.83 m/s | |MV Dec [place]: 3.79 m/s2 | |MV DecT: 180.05 ms [...] |TR Vmax: 2.11 m/s | | | |Mammography Supervisor: | |Authenticated by: NORM BURGER MD | |Report Date/Time: 10-21-2018 12:0:6 | | | |IMPRESSION: | |1. Overall left ventricular systolic function is normal with an EF between 60 - 65%. | |2. The right ventricle is normal in size and function. | |3. Psvh-kh-gywkfhxd mitral regurgitation is present. | + + + + + + + | Performing | Address | City/State/Zipcode | Phone Number | | Organization | | | | + + + + + | [facility] | [address] | [place] [address] | | + + + + + [...] +------+-------+ + | MEDICAID | EVY | [id number] | | | [address] | | | [place] | | | | [place] | | | [place] | | | | [phone] | | | ASSISTANT PROFESSOR IN FAMILY STUDIES | | | | | + +--------+ [...] Self | [birth year] Home: | [address] | | | al/Fam | | 1955 | [phone] [place] | | | brendan | | | [address] | [phone] | + +--------+ +--------+ + +"
[~2018-12-07 02:25] MED LIST changes: +DILTIAZEM 24HR180 M1 PO; +HYOSCYAMINE0.125 M2 PO; +LACTULOSE10 GM/15 M PO; +LOVENOX40 MG/0.4 SUB-Q; +MAXIMUM DAILY1 EACH PO; +MEGESTROL ACETA20 MG PO; +MIRALAX17 GM PO; +ONDANSETRON ODT4 MG PO; +OXYCODONE HCL5 MG PO; +PANTOPRAZOLE SO40 MG PO; +REMERON15 MG PO; +SIMETHICONE80 MG PO; +TYLENOL325 MG PO
--- OUTSIDE RECORDS SUMMARY | 2018-12-07 02:28 | XMS ---
PreManage Notification: KANU SCHULZ Security Experience Specialist Events No recent Security Events currently on file CRITERIA MET - [facility] - Has Care Guidelines CARE PROVIDERS QUAN MCCAULEY Hospitalist 10/29/2018-Current PHONE: Unknown Kaylynn has no Care Guidelines for this patient. Care History Medical/Surgical 10/29/2018 [facility] - Patient is currently established with [facility]. If patient is seen in the ED during business hours. Please contact CHWs at [facility]. Care Recommendation: This patient has had 5 or more Emergency Department visits in the last 12 months.\T\nbsp; Patient requires education on the scope and purpose of the ED as an acute care provider not a Primary Care Provider and should not be utilized for chronic conditions.\T\nbsp; These are guidelines and the provider should exercise clinical judgment when providing care. E.D. VISIT COUNT (12 [address] [facility] TOTAL 3 NOTE: Visits indicate total known visits. ED/UCC VISIT TRACKING (12 MO.) 12/07/2018 02:25 [facility] [place] TYPE: Emergency COMPLAINT: - ABDOMINAL PAIN 10/28/2018 18:04 [facility] [place] TYPE: Emergency COMPLAINT: - BLOOD IN STOOL DIAGNOSES: - Intussusception - Other group home (current) drug therapy - Personal history of transient ischemic attack (TIA), and cerebral infarction without residual deficits - Essential (primary) hypertension - Anemia, unspecified - Allergy status to penicillin - Melena - Radiographic dye allergy status - Type 2 diabetes mellitus without complications - Disease of intestine, unspecified 10/17/2018 09:53 [facility] [place] TYPE: Emergency COMPLAINT: - WEAKNESS INPATIENT VISIT TRACKING (12 MO.) 10/29/2018 03:05 [facility] [place] TYPE: Surgical Services DIAGNOSES: - Alcoholic cirrhosis of liver without ascites - Essential (primary) hypertension - Fatty (change of) liver, not elsewhere classified - Melena - Alcohol dependence, uncomplicated - Alcoholic cirrhosis of liver with ascites - Acute posthemorrhagic anemia - Acute kidney failure, unspecified - Type 2 diabetes mellitus with diabetic polyneuropathy - Other ascites - Unspecified severe protein-calorie malnutrition - Gastrointestinal hemorrhage, unspecified - Supraventricular tachycardia - Intussusception - Disease of intestine, unspecified - Malignant neoplasm of colon, unspecified 10/17/2018 16:51 [facility] [place] TYPE: Medical Surgical COMPLAINT: - HYPOTENSION DIAGNOSES: - Pneumonia due to other specified bacteria - Allergy status to penicillin - Pneumonia due to Streptococcus pneumoniae - Hypocalcemia - Acute posthemorrhagic anemia - Essential (primary) hypertension - Radiographic dye allergy status - Alcoholic fatty liver - Family history of malignant neoplasm of digestive organs - Hypomagnesemia - Nonrheumatic mitral (valve) insufficiency - Cyst of kidney, acquired - Residual hemorrhoidal skin tags - Other ascites - Residual hemorrhoidal skin tags - Other ascites - Type 2 diabetes mellitus without complications - Other disorders of phosphorus metabolism - Nonrheumatic mitral (valve) insufficiency - Pneumonia due to Streptococcus pneumoniae - Other petroleum terminal plant operator (current) drug therapy - Gout, unspecified - Other specified sepsis - Hypotension, unspecified - Hypokalemia - Other specified diseases of intestine - Cyst of kidney, acquired - Vitamin D deficiency, unspecified - Unspecified severe protein-calorie malnutrition - Allergy status to penicillin - Severe sepsis with septic shock - Vitamin D deficiency, unspecified - Body mass index (BMI) 24.0-24.9, adult - Gastroduodenitis, unspecified, without bleeding - Other hemorrhoids - Supraventricular tachycardia - Sepsis due to Streptococcus pneumoniae - Gout, unspecified - Other group home (current) drug therapy - Essential (primary) hypertension - Intussusception - Sepsis due to Streptococcus pneumoniae - Hypomagnesemia - Other specified diseases of intestine - Acute posthemorrhagic anemia - Other hemorrhoids - Body mass index (BMI) 24.0-24.9, adult - Alcohol dependence, uncomplicated - Radiographic dye allergy status - Other specified sepsis - Pneumonia due to other specified bacteria - Polyp of colon - Diaphragmatic hernia without obstruction or gangrene - Unspecified severe protein-calorie malnutrition - Severe sepsis with septic shock - Type 2 diabetes mellitus without complications - Intussusception - petroleum terminal plant operator (current) use of oral hypoglycemic drugs - Alcohol dependence, uncomplicated - Family history of malignant neoplasm of digestive organs - Supraventricular tachycardia - Diaphragmatic hernia without obstruction or gangrene - Polyp of colon - Alcoholic fatty liver - Hypocalcemia - petroleum terminal plant operator (current) use of oral hypoglycemic drugs - Hypokalemia - Gastroduodenitis, unspecified, without bleeding - Other disorders of phosphorus metabolism [email or web address]
--- NOTE | 2018-12-07 08:17 | NUR ---
PATIENT ARRIVED FROM ED, PATIENT HAD FMAILY WITH HIM, PATEINT NEEDED NO OTHER ASSISTANCE AT THE MOMENT
--- NOTE | 2018-12-07 08:32 | NUR ---
PT RECEIVED FROM ED. P TON ROOM AIR, LUNG SOUNDS CLEAR. HR REGULAR. PT COMPLAINT OF ABD PAIN 6/10 WITH SHOOTING PAIN 10/10, GIVEN 0.5 MG IV DILAUDID. PT WITH NG FEEDING TUBE IN PLACE. PT HAS MIDLINE AND RUQ NICISONS FROM [facility] IN OCTOBER, WITHOUT REDNESS. COLOSTOMY TO [facility], DRAING BROWN LIQUID. PT REPORT OF PASING BLOODY STOOSL THIS AM, ASSESS, AMLL AMOUNT OF DRIED BLOOD IN UNDERWEAR, BRIEF APPLED. NS AT 125 ML/HR INFUSING. ADMISSION INTAKE COMPLETED. PT DENIES OTHER NEEDS ATT THIS TIME. CALL LIGHT WITHIN REACH.
--- NOTE | 2018-12-07 10:00 | NUR ---
PT COMPLAINT OF ABD PAIN 12/23, GIVEN 0.6 MG IV DILAUDID. PT WITH SIPS OF WATER, EDUCATED TO DRINK SLOWLY. PT DENIES OTHER NEEDS AT THIS TIME.
--- NOTE | 2018-12-07 12:10 | NUR ---
LR BOLUS INFUSING, D5LR AT 85 TO FOLLOW BOLUS. PT STATES PAIN A LITTLE BETTER AFTER DILAUDID. PT DENIES OTHER NEEDS AT THIS TIME.
--- NOTE | 2018-12-07 15:10 | NUR ---
DR. CALI NOTIFIED OF SLIGHT HYPOTENSION, ORDER TO HOLD CARDIZEM AT THIS TIME. LR BOLUS INFUSING. PT REQUESTING PAIN MEDICATION GIVEN 4 MG IV MORPHINE FOR PAIN 12/23. PT DENIES OTHER NEEDS AT THSI TIME.
--- NOTE | 2018-12-07 16:40 | NUR ---
DR. CALI CALLED, COMING TO DO PARACENTESIS, REQUESTING SUPPLIES TO BE KB TO ROOM, COMPLETED. PT NOTIFIED THAT DR. CALI WILL BE COMING TO DO PROCEDURE. PT CONCERN BECAUSE LAST PARACENTESIS AT [facility] WAS PAINFUL, DISCUSSED WITH PT. PT DENIES OTHER NEEDS AT THIS TIME.
--- NOTE | 2018-12-07 18:13 | NUR ---
PATIENT IN BED RESTING. CALL LIGHT IN REACH. NO FURTHER NEEDS AT THIS TIME.
--- NOTE | 2018-12-07 18:22 | NUR ---
PT ADMITTED FOR ABD PAIN. PT ON ROOM AIR, LUNG SOUNDS CLEAR. PAIN CONTROLLED WITH IV MORPHINE 4-6MG. PT WITH ASCITES, PLAN FOR PARACENTESIS THIS EVENING. PT WITH COLOSTOMY TO LEFT ABD, MIDLINE INSICION AND RUQ INCISION HEALING. PT RECEIVED 2L LR BOLU, D5LR INFUSING AT 85 ML/HR. CLEAR LIQUID TRAY, TOLERATING WELL, NAUSEA IN ED. PT WEAK, UP WITH ASSISTANCE, HAS NOT DONE A LOT OF ACTIVITY RECENTLY. PT WITH CHRONIC TINGLING IN TOES, CMS OTHERWISE INTACT, SCDS IN PLACE.
--- NOTE | 2018-12-07 19:34 | NUR ---
R NARE FEEDING TUBE IN PLACE, NO C/O IRRITATION. MEDICATED WITH MORPHINE 6MG IV C/O ABD PAIN 02/22. VOIDING SMALL AMOUNTS OF DARK YELLOW URINE. L COLOSTOMY EMPTIED. ANXIOUS. RANDI JONES IN ROOM TALKING TO PT.
--- NOTE | 2018-12-07 21:22 | NUR ---
PT HAD TAPPING PARACENTESIS DONE ON R SIDE , FLUIDS SENT TO LAB. MEDICATED W MORPHINE 6MG IV C/O 02/22 R SIDED PAIN
--- NOTE | 2018-12-07 21:40 | HP ---
[facility] [address], [place] [address] Signed ADMISSION DATE: 12/07/2018 REASON FOR ADMISSION: Possible acalculous cholecystitis. HISTORY OF PRESENT ILLNESS: This 63-year-old white man presented to the emergency room was evaluated by Dr. Basurto. His complaint was that of abdominal pain. It is notable that he underwent sigmoid colectomy with end colostomy about a month ago at [facility] under the direction of Dr. Narvaez. He was seen and evaluated by Dr. Powell locally upon consultation while in the hospital for rectal bleeding and low-grade anemia and colonoscopy demonstrated a neoplasm at approximately 25 cm. He was referred by the hospitalist, and at the discretion of Dr. Powell at [facility], where he underwent laparoscopic sigmoid resection with end colostomy. The patient has been at home with a nasoenteric feeding tube, having been discharged from the hospital at [facility] with poor oral intake. He has apparently been doing some enteral tube feedings this way. He has not really been eating at home much. He presented to the emergency room having epigastric significant sharp pain. He is and his had been giving him oxycodone, which the patient was discharged with. His pain was not alleviated by medication and he had nausea and sublingual Zofran was of no benefit. His evaluation in the emergency room by Dr. Basurto included a CT scan of the abdomen, which showed no acute change. There was ascites and the gallbladder was present. There were no obvious stones on CT scan. I was called in the edge grinder machine hours regarding this problem. The patient had noted no hematemesis though he later does describe that he has had some blood per rectum. On the high probability this may represent biliary disease and despite a so-called negative CT scan regarding the gallbladder at least, an ultrasound was recommended and was performed. The ultrasound was interpreted as showing ascites and lobular liver contour changes and gallbladder sludge. Common bile duct was normal in size. Notably, patient's laboratory studies showed a white count of 11.9, hematocrit 33.5 with a platelet of 398,000. Chem profile, which was normal except for glucose of 168, alkaline phosphatase elevated at 132. The other liver enzymes and bilirubin are normal. His protime was noted to be 14.5 with an INR of 1.0, and urinalysis was essentially normal. White cells were 5 per high-powered field. Electronically Signed By: RAGHAV CALI MD 12/07/18 2140 PATIENT NAME: KANU SCHULZ HISTORY AND PHYSICAL DATE OF : 55 REPORT #: [id number] PHYSICIAN: RAGHAV CALI MD PCP: CHAD ELLINGTON MD REPORT IS CONFIDENTIAL AND NOT TO BE RELEASED WITHOUT AUTHORIZATION [facility] [address] [place] [id number] Signed I allowed for direct admission to my service after discussing this with Dr. Basurto and the probability this may represent acalculous cholecystitis. I was not aware of his prior history of cirrhosis and ascites nor was it known to me that the patient has had poor oral intake since discharge from the hospital. I subsequently spoke with Dr. Powell who affirmed the patient had a neoplasm of the sigmoid and communication he had from Dr. Narvaez's team was primary anastomosis was not undertaken due to a foreshortened mesentery. Dr. Powell noted that he is said to have portal hypertension and large varices. The patient has been under the care of Dr. Goodman additionally, as he was considered to have stage II colon cancer without known hepatic metastases and chemotherapy was considered contraindicated in the presence of micro satellite instability, which he apparently had. Consideration for Urrutia syndrome was also made, though I know of no particular studies that have been obtained for that purpose. The patient is noted to be a patient of Dr. Chad Ellington as well. Review of his admission note in early October in particular related to Dr. Mancuso and her assessment showed the patient at that time had septic shock secondary to left lower lobe pneumonia with organism Streptococcus pneumoniae empirically treated in addition to the large colonic mass. He was noted to have severe gastric duodenitis due to alcohol use and paroxysmal supraventricular tachycardia at that time. He is also noted to have alcoholic liver disease and was considered at that time to have ascites secondary to hypoalbuminemia. He also was noted to have hypertension, type 2 diabetes mellitus. SOCIAL HISTORY: He is . He lives in [place]. His primary physician is Dr. Ellington. REVIEW OF SYSTEMS: He denies any shortness of breath at this time. He has had no hematemesis, though apparently does have some complaint of blood per rectum at least yesterday. He has upper abdominal pain. PHYSICAL EXAMINATION: GENERAL: This is a relatively thin and chronically ill-appearing white man, who has an enteral feeding tube exiting in the nostril. HEENT: His trachea is midline. There is no carotid bruit. There is no cervical adenopathy. Electronically Signed By: RAGHAV CALI MD 12/07/18 2140 PATIENT NAME: KANU SCHULZ HISTORY AND PHYSICAL DATE OF : 55 REPORT #: [id number] PHYSICIAN: RAGHAV CALI MD PCP: CHAD ELLINGTON MD REPORT IS CONFIDENTIAL AND NOT TO BE RELEASED WITHOUT AUTHORIZATION [facility] [address] [facility] [place] [address] Signed CHEST: Shows no sign of tachypnea. Breath sounds are equal. HEART: Regular without murmur. ABDOMEN: Not particularly distended and do not see tense ascites. There is maybe some fluid. He has mild tenderness in the epigastric area. EXTREMITIES: Show no clubbing, cyanosis, or edema. LABORATORY DATA: Lab studies are as previously noted including white cell count of 11.9, hematocrit 33.5, platelets 398,000. Chem profile normal except for elevated glucose. Creatinine 0.67. Coag studies normal including protime and an INR of 1.0. Urinalysis essentially normal. I have reviewed the CT scan and the ultrasound. ASSESSMENT: The patient has far more complex medical issues than it was initially presented. He may well have acalculous cholecystitis; indeed, this may be accounting for his poor oral intake since his operation. It is uncertain if this was considered or evaluated at the time of his postoperative management for colon resection a month ago. He has been taking enteral feeds and looking at his medication list appetite stimulants as well. His pain may be related to acalculous cholecystitis; the gallbladder is thickened, though this may be related to his underlying ascites and does appear to be some sludge. Actual function of his gallbladder is uncertain. On the other hand, he was said to have a gastric duodenitis previously. Review of his previous hospitalization only a month ago October 19, 2018, had colonoscopy findings of the neoplasm at 25 cm were well demonstrated as well as internal and external hemorrhoids. October [address] Powell described upper endoscopy, which showed moderate severe gastroduodenitis with friable mucosa, but no anam bleeding. There were no esophageal or gastric varices noted according to Dr. Powell's operative note. It is certainly possible that he would have portal hypertension and given his known cirrhosis, however, he was not seen to have varices on his previous endoscopy only a month and a half ago. He has no splenomegaly, which is typical of portal hypertension and no thrombocytopenia either. Given his underlying numerous medical problems, not here to for known, at least to me or the emergency room physician, will additionally consult the hospitalist, who may have some familiarity with his case from previously. He may ultimately require cholecystectomy indeed, it may be the underlying cause of his poor postoperative course as regard to oral intake. Conversely, his findings on gallbladder showing sludge and thickened gallbladder wall may be simply related to ascites, which is certainly well visualized on his CT scan and to a lesser extent on the ultrasound. We will maintain oral intake to the extended as possible and allowed clear liquids for the time being. A Electronically Signed By: RAGHAV CALI MD 12/07/182139 PATIENT NAME: KANU SCHULZ HISTORY AND PHYSICAL DATE OF : 55 REPORT #: [id number] PHYSICIAN: RAGHAV CALI MD PCP: CHAD ELLINGTON MD REPORT IS CONFIDENTIAL AND NOT TO BE RELEASED WITHOUT AUTHORIZATION [address] [address] Signed nasoenteric feeding tube remains in place. We will hold off on supplying enteral feedings through that for the time being. We will check a pre-albumin however. Raghav Cali MD JM/MODL /[id number] cc: MD Slava Anderson MD Copies: CHAD ELLINGTON MD, ANDREW L MD ~ Electronically Signed By: RAGHAV CALI MD 12/07/18 2140 PATIENT NAME: SCHULZKANU HISTORY AND PHYSICAL DATE OF : 55 REPORT #: [id number] PHYSICIAN: RAGHAV CALI MD PCP: CHAD ELLINGTON MD REPORT IS CONFIDENTIAL AND NOT TO BE RELEASED WITHOUT AUTHORIZATION
--- NOTE | 2018-12-07 21:44 | NUR ---
WELDER PRODUCTION LINE ARC ROUNDING NOTE. PT HAS QUESTIONS ABOUT NPO STATUS, NOT CURRENTLY RECEIVING FORMULA FEEDINGS. HE STATES HIS WILL HAVE QUESTIONS FOR HIM. CHRISTIANO ANSWERED, INFORMED PT THAT HIS IS WELCOME TO CALL AND SPEAK WITH RN'S WELL. PT STATES UNDERSTANDING. PT URINAL EMPTIED. DINNER TRAY REMOVED FROM ROOM. ICE WATER REFILLED. PT DENIES FURTHER NEEDS AT THIS TIME. CALL LIGHT IN REACH. WHITE BOARD UPDATED.
--- NOTE | 2018-12-07 23:32 | NUR ---
Pt c/o arrythmia, p149 regular. denies c/o CP. tele#[address]
--- NOTE | 2018-12-07 23:40 | NUR ---
111/53 - DILTIAZEM 5MG GIVEN IV P 163. DENIES C/O CP
--- NOTE | 2018-12-07 23:41 | NUR ---
79/50BP, P 124 DR WEBB IN ROOM P123, 2343 - RT HERE , EKG BEING ORDERED BY DR WEBB 2343 -MAP 51, P 128, R 18, O2 SATS 96% ROOM AIR 2345 - EKG READING SINUS TACHYCHARDIA 2351 - DR CALI NOTIFIED VIA PHONE, HE TALKED TO DR WEBB. NO NEW ORDERS 2354 - BP74/45 P134, R18, DENIES SOB OR CP.
--- NOTE | 2018-12-07 23:53 | NUR ---
dr henriquez notified, he talked to dr ordoñez via phone . stat mg ordered
--- NOTE | 2018-12-07 23:57 | NUR ---
2357 - BP 86/52 MAP 58, P 137, DR WEBB ON ROOM.
--- NOTE | 2018-12-08 | NUR ---
200 CC BOLUS OF D5LR IV GIVEN
--- NOTE | 2018-12-08 00:02 | NUR ---
BP 74/48/MAP 52, P135 O2 sat93%
--- NOTE | 2018-12-08 02:03 | NUR ---
DR WEBB NOTIFIED OF PTS BP 68/34 W PULSE OF 144, R 16, DENIES CP OR SOB. MAG RIDER COMPLETED. N.O TO START 250CC NS IV BOLUS. PT AWAKE, ALERT AND ORIENTED. NGT R JACK INPLACE. CLOSTOMY L SIDE PATENT, VOIDING SMALL AMOUNT OF DRK URINE. USING CALL LIGHT APPROPRIATELY
--- NOTE | 2018-12-08 02:42 | NUR ---
DR WEBB NOTIFIED OF BP OF 57/39 MAP 44, P141, PT AWAKE, ASYNMTOMATIC, RECEIVING 250CC BOLUS NS IV. NEW ORDERS TO MOVE PT TO ICU AND KEEP SAME ORDERS OBTAINED. NOTIFIED DR CALI VIA PHONE, STACKER DRIVER AND ICU NOTIFIED
--- NOTE | 2018-12-08 03:01 | NUR ---
0251 - pt transferred to icu via bed. Situation explained to pt beforehand, stated understanding.
--- NOTE | 2018-12-08 03:24 | NUR ---
PT ARRIVED FROM DE TO CCU AT 0300. MD CALI CALLED AND CBC, BMP LABS WERE ORDERED NOW AND A LACTIC ACID STAT WAS ORDERED. SBP IN THE 80'S-90'S SINCE ARRIVAL. MAP IS 50'S-60'S SINCE ARRIVAL. WAITING RESULTS FROM LAB AND WILL CONTINUE TO MONITOR. ALL LOBES ARE CLEAR, ABD IS FIRM AND TENDER TO TOUCH. NO OUTPUT IN COLOSTOMY NOTED SINCE ARRIVAL, URINE OUTPUT SINCE ARRIVAL 150ML, NO PERIPHERAL EDEMA NOTED. PT AAOX4. HR STILL IN THE 140'S-150'S.
--- NOTE | 2018-12-08 04:15 | NUR ---
BG WAS 148. LEVOPHED DRIP HUNG AND RUNNING AT 2MCG/MIN FOR NOW. BP SET FOR Q2MIN. STILL WAITING ON LABS.
--- NOTE | 2018-12-08 05:25 | NUR ---
MD CALI CALLED. ORDERS FOR A GENTILE, CHEST X-RAY AND A CENTRAL LINE WERE GIVEN.
--- NOTE | 2018-12-08 05:41 | NUR ---
PT LIFTED HEAD AND LOOKED AT NURSE WHEN ROUNDING DONE. LAYED BACK DOWN WITH MOM,
--- NOTE | 2018-12-08 06:34 | NUR ---
GENTILE WAS INSERTED AT 0612. PT ALSO RECEIVED 3MG IV MORPHINE FOR PAIN 12/23. BP AND MAP IS BETTER, HR IS AT 150 STEADY AT THIS TIME. WILL CALL MD JONES AGAIN TO SEE IF SHE WANTS TO ADDRESS HR OF PT. CHEST X-RAY DONE. WILL CONTINUE TO MONITOR.
--- NOTE | 2018-12-08 07:30 | NUR ---
REPORT RECIEVED. LEVOPHED GTT INCREASED TO 12.5 MG, BP-88/66. WILL CONTINUE TO TITRATE NEEDED. HR-140. PATIENT IS AWARE OF PLAN OF CARE FOR DAY. SCD'S ON.
--- NOTE | 2018-12-08 07:37 | EKG ---
[facility] [address] [facility] [place] [address] Signed Supraventricular tachycardia Low voltage QRS Cannot rule out Anterior infarct (cited on or before 17-OCT-2018) Abnormal ECG When compared with ECG of 19-OCT-2018 21:34, Sinus rhythm has replaced Junctional rhythm Nonspecific T wave abnormality no longer evident in Lateral leads Confirmed by LIONEL JONES MD ([id number]) on 12/08/2018 7:37:18 AM Electronically Signed By: LIONEL JONES MD 12/08/18 0737 PATIENT NAME: KANU SCHULZ ROSENDO Electrocardiogram DATE OF : 55 PHYSICIAN: LIONEL JONES MD REPORT #: [id number] REPORT IS CONFIDENTIAL AND NOT TO BE RELEASED WITHOUT AUTHORIZATION
--- NOTE | 2018-12-08 08:00 | NUR ---
ASSESSMENT DONE. DENIES NEED FOR PAIN MEDICAION. IS RESTING WITH HOB ELEVATED. DENIES SHORTNESS OF BREATH. STATES HE FEEL HUNGRY. FEEDING TUBE IS CLAMPED. 20 ML OF WATER USED TO IRRIGATE FEEDING TUBE. IRRIGATES FREELY. DENEIS NAUSEA. OSTOMY BAG INTACT WITH SMALL AMOUNT OF SOFT STOOL NOTED. PATIENT STATES HE FEELS BETTER AFTER DRAINING FLUID OFF OF ABD YESTERDAY. DR. JONES HERE TO SEE PATIENT.
--- NOTE | 2018-12-08 09:00 | NUR ---
DR. CALI HERE TO SEE PATIENT. NO FUTHER ORDERS AT THIS TIME. WILL ATTEMPT TO TITRATE LEVOPHED GTT.
--- NOTE | 2018-12-08 09:18 | NUR ---
ORAL CARE DONE BY PATIENT. CALL LIGHT IN REACH. NO FURTHER NEEDS AT THIS TIME.
--- NOTE | 2018-12-08 10:30 | NUR ---
PATIENT TO RECIEVE ONE UNIT OF PRBC'S TODAY. LAB AWARE, PENDING TYPE AND CROSSMATCH.
--- NOTE | 2018-12-08 10:57 | NUR ---
MONITOR SHOWS SVT TO SR. HR-120 TO 80'S. BP REMAINS 90'S/50'S. RESTFUL.
--- NOTE | 2018-12-08 11:46 | NUR ---
PATIENT IN ROOM. LEVOPHED GTT REMAINS AT 7.5 MCG/MIN. HR 84. IS ASLEEP AT THIS TIME. NO DISTRESS NOTED. GENTILE CATH PATENT WITH PATRICIA URINE NOTED. IV SITES X 2 INTACT, NO REDNESS NOTED.
--- NOTE | 2018-12-08 12:26 | NUR ---
1 UNIT PRBC'S HUNG. PATIENT AWAKEN FOR ASSESSMENT AND VITAL SIGNS. DENEIS PAIN OF ANY PROBLEMS.
--- NOTE | 2018-12-08 12:30 | NUR ---
IVF OF D5LR HELD DURNING BLOOD TRANSFUSION.
--- NOTE | 2018-12-08 14:30 | NUR ---
PRBC'S INFUSED. PATIENT HAS BEEN ASLEEP MOST OF DAY. WILL AWAKEN EASILY, IS FOLLOWING COMMANDS. IS AWARE OF SURROUNDINGS AND EVENTS. IVF OF D5LR NOW INFUSING AT 85 ML/HR. LEVOPHED GTT AT 7.5 MCG/MIN DECREASED TO 6MCG/MIN. SEE MONITOR PRINT OUT FOR Q 15 MIN VITAL SIGNS.
--- NOTE | 2018-12-08 16:40 | NUR ---
DRAW SHEET REAPPLIED. WITH TURNING PATIENT C/O INCREASED PAIN IN LOWER BACK AND DIFFUSE THROUGH ABD. LEVOPHED GTT DECREASED TO 5 MCG/HR. HR MID TO HIGH 90'S. IS MUCH MORE AWAKE NOW THAN ANY OTHER TIME TODAY.
--- NOTE | 2018-12-08 16:54 | NUR ---
MORPHINE 2 MG IV GIVEN OF PAIN. HOB ELEVATED, WATCHING TV.
--- NOTE | 2018-12-08 19:38 | NUR ---
RECEIVED REPORT AT 1900, DURING REPORT MD CALI CAME TO UNIT AND ORDERS WERE GIVEN TO D/C FEEDING TUBE, TO GIVE CHLORACEPTIC SPRAY FOR SORE THROAT, AND TO CHANGE DIET TO A FULL LIQUID DIET. LEVOPHED DRIP RATE AT 4MCG/MIN AT THIS TIME.
--- NOTE | 2018-12-08 19:43 | OR ---
[facility] [address] [place], [place] [address] Signed DATE OF OPERATION: 12/07/2018 SURGEON: Raghav Cali MD TIME: 9 p.m. PREOPERATIVE DIAGNOSES: 1. Ascites, known history of cirrhosis of liver; history of sigmoid colectomy with end colostomy one month ago at [facility]. 2. Significant epigastric right upper abdominal pain, uncertain etiology, possible acalculous cholecystitis versus spontaneous bacterial peritonitis. POSTOPERATIVE DIAGNOSES: 1. Ascites, known history of cirrhosis of liver; history of sigmoid colectomy with end colostomy one month ago at [facility]. 2. Significant epigastric right upper abdominal pain, uncertain etiology, possible acalculous cholecystitis versus spontaneous bacterial peritonitis. PROCEDURE PERFORMED: Ultrasound-guided fine-needle aspiration biopsy of peritoneal fluid, right abdomen. ANESTHESIA: 1% lidocaine. INDICATIONS: This 63-year-old white man, patient of Dr. Chad Ellington. He was admitted via the emergency room today by me with significant right upper abdominal and mid abdominal pain. He underwent sigmoid colectomy by Dr. Narvaez at [facility] approximately a month ago and has an end-colostomy as anastomosis was not able to be performed for some reason. He is known to have significant cirrhosis and ascites, previously undergoing paracentesis of 5.1 L while at [facility]. He has no evidence of anasarca, but does have distended abdomen and ascites is noted on CT scan and an ultrasound performed at the time of evaluation previously today. A gallbladder ultrasound shows sludge in the gallbladder, but no stones. Consultation was undertaken with Dr. Mancuso, hospitalist, who suggested the possibility of spontaneous bacterial peritonitis as a sort of his source of his problem as he has undergone paracentesis in the recent past at [facility] and recommended paracentesis be done for Gram stain, cultures, and possibly even cytology. Electronically Signed By: RAGHAV CALI MD 12/08/181942 PATIENT NAME: KANU SCHULZ OPERATIVE REPORT DATE OF : 55 REPORT #: [id number] PHYSICIAN: RAGHAV CALI MD PCP: CHAD ELLINGTON MD REPORT IS CONFIDENTIAL AND NOT TO BE RELEASED WITHOUT AUTHORIZATION [facility] [address] [place], [place] [address] Signed I have reviewed the risks of the procedure with the patient including, but not limited to bleeding, infection, bowel perforation, and other unforeseen complications. He understands and wished to proceed. FINDINGS: A good space with peritoneal fluid was identified in the right mid abdomen laterally. Using ultrasound guidance, the paracentesis catheter was directed to the space and paracentesis of 1.5 L of fluid was undertaken. The fluid was mitchell and somewhat turbid. Gram stain is pending as his culture and cytology was sent as well. DESCRIPTION OF PROCEDURE: In the supine position, the abdominal wall was interrogated with the Mercator MedSystems ultrasound device using a flat 6-13 megahertz ultrasound probe. Right-sided interrogation was undertaken with acoustic gel showing bowel loops and so forth as well as an area of peritoneal fluid. The left side was examined as well, though there is a left mid abdominal wall colostomy in that area. There was fluid on that side as well. Body position was somewhat changed allowing for a slightly right sided dependent position. Area of puncture was identified with an impression on the skin. The skin was then prepared with a chlorhexidine solution and draped sterilely. A 1% lidocaine injected locally. The ultrasound was used to guide the needle to the peritoneal space with fluid while aspirating. Once fluid was identified, the needle itself was removed and the catheter advanced. Using a three-way stopcock and appropriate tubing, aspiration of a large syringe of fluid was undertaken, this was a mitchell colored and somewhat turbid, not purulent by any means, that definitely not as clear as usual either, this was sent for Gram stained and cultures. Tubing was then applied to Vacutainer bottle, this allowed for prompt withdrawal of 1 L of fluid. The bottle was changed allowing for additional drainage, but at about half a liter, no further drainage was forthcoming. The catheter was adjusted variously and would get of a bit more fluid, but not too much. The ultrasound probe was applied to the abdominal wall showing apposition of intraabdominal contents of the abdominal wall and no dominant large space for additional fluid. On that basis, the catheter was removed and a Band-Aid was applied. The patient tolerated the procedure well. Raghav Cali MD Electronically Signed By: RAGHAV CALI MD 12/08/181942 PATIENT NAME: KANU SCHULZ OPERATIVE REPORT DATE OF : 55 REPORT #: [id number] PHYSICIAN: RAGHAV CALI MD PCP: CHAD ELLINGTON MD REPORT IS CONFIDENTIAL AND NOT TO BE RELEASED WITHOUT AUTHORIZATION [address] [address] Signed /[facility] /[id number] cc: MD Marjorie Anderson MD Copies: CHAD ELLINGTON MD, CYNTHIA MD ~ Electronically Signed By: RAGHAV CALI MD 12/08/18 1943 PATIENT NAME: KANU SCHULZ ROSENDO OPERATIVE REPORT DATE OF : 55 REPORT #: [id number] PHYSICIAN: RAGHAV CALI MD PCP: CHAD ELLINGTON MD REPORT IS CONFIDENTIAL AND NOT TO BE RELEASED WITHOUT AUTHORIZATION
--- NOTE | 2018-12-08 20:00 | NUR ---
FEEDING TUBE HAS BEEN D/C AT 1999. PT TRIED SOME MILK SHAKE BUT DID NOT LIKE IT. PT DOES NOW HAVE SOME ABD PAIN WITH JUST TWO SIPS OF SHAKE. LOWER LOBES HAVE CRACKLES PRESENT, ALL OTHER LOBES ARE CLEAR. ABD IS DISTENDED IN THE SAME MANNER YESTERDAY. COLOSTOMY HAS MINIMAL OUTPUT SO FAR. NO PERIPHERAL EDEMA NOTED, PEDIS PULSES +1 WITH CAP REFILL <2SEC. PAIN IS 2/10 AT THIS TIME V/S OVERALL ARE WDL. URINE OUTPUT ADEQUATE SO FAR.
--- NOTE | 2018-12-08 21:21 | NUR ---
PT AT THIS TIME IS RESTING. BP'S ARE ACCEPTABLE AND SO IS HIS HR IN THE 90'S. NO NEW CONCERNS NOTED AT THIS TIME. WILL CONTINUE TO MONITOR.
--- NOTE | 2018-12-08 22:19 | NUR ---
PT IS SLEEPING AT THIS TIME. URINE OUTPUT HAS DROPPED TO 60ML/2HRS AT THIS TIME. WILL CONTINUE TO MONITOR. V/S ARE WDL SO FAR. LEVOPHED DRIP AT 4MCG/MIN SINCE START OF SHIFT.
--- NOTE | 2018-12-09 00:15 | NUR ---
URINE OUTPUT FROM [id number] WAS ONLY 35ML. WILL CONTINUE TO MONITOR FOR ANOTHER HOUR OR SO AND THEN CALL MD CALI. MAP SO FAR HAS STAYED >65 FOR THE MOST PART. LEVOPHED DRIP AT 3MCG/MIN NOW. PT COMPLAINED OF ABD PAIN 01/22. ABD AT THIS TIME SEEMS MORE DISTENDED ON BOTH SIDES. FLUID SEEMS TO PERHAPS ACCUMALATE IN ABD AGAIN HENCE LOW URINE OUTPUT. PT STILL HAS CRACKLES IN THE BASES WITH ALL OTHER LOBES BEING CLEAR. NO PERIPHERAL EDEMA NOTED AND NO OTHER CHANGES NOTED WITH SECOND ASSESSMENT.
--- NOTE | 2018-12-09 01:37 | NUR ---
SINCE URNIE OUTPUT HAS BEEN DROPPING SINCE 2199, MD CALI WAS CALLED. 0100 URINE WAS ONLY 14ML. ORDER WAS GIVEN THAT IF BY 0200 URINE OUTPUT IS <20ML, 10MG IV LASIX IS TO BE GIVEN. PT IS SLEEPING AT THIS TIME.
--- NOTE | 2018-12-09 02:05 | NUR ---
URINE OUTPUT FROM [id number] WAS 12ML. LASIX ORDER WAS ADDED AND WILL BE GIVEN.
--- NOTE | 2018-12-09 03:03 | NUR ---
URINE OUTPUT FROM 2821-0152 WAS 325ML. LEVOPHED WAS DECREASED TO 2MCG/MIN. V/S ARE WDL.
--- NOTE | 2018-12-09 04:09 | NUR ---
PT RESPONDED WELL TO LASIX. URINE OUTPUT HAS SIGNIFICANTLY INCREASED WITHIN THE LAST TWO HRS. PAIN AT THIS TIME IS ALSO WELL CONTROLLED. LOBES AT THIS TIME ARE CLEAR. ABD SOUNDS ARE PRESENT. NO NEW CONCERNS NOTED AT THIS TIME. LEVOPHED DRIP AT 1MCG/MIN. WILL AWAIT ONE MORE BP READING AND THEN TURN OFF DRIP.
--- NOTE | 2018-12-09 04:22 | NUR ---
LEVOPHED DRIP WAS TURNED OFF AT 0420. BP WAS 108/64 (73). PT IS COMPLAINING OF LOWER ABD CRAMPING. WILL CONTINUE TO MONITOR.
--- NOTE | 2018-12-09 05:04 | NUR ---
URINE OUTPUT IS DECREASING ONCE MORE BUT IS STILL ADEQUATE. PT IS SLEEPING. WILL CONTINUE TO MONITOR.
--- NOTE | 2018-12-09 06:08 | NUR ---
PT IS MAINTAINING BP/MAP WITHOUT VASOPRESSOR. URINE OUTPUT FOR 055-0600 WAS 26ML. PT IS STILL SLEEPING V/S WDL OVERALL.
--- NOTE | 2018-12-09 08:00 | NUR ---
ASSESSMENT DONE. C/O ABD CRAMPING. OSTOMY EMPTIED FOR 200 ML OF LIQ BROWN STOOL. FLAT AFFECT. DENIES SORE THROAT. ENSURE GIVEN, REFUSING ANY FUTHER BREAKFAST. DENEIS DIZZINESS. ENC USE OF I.S. ENC PO INTAKE.
--- NOTE | 2018-12-09 08:40 | NUR ---
TOOK 230 ML OF ENSURE. DENIES NAUSEA, STATES HE DOESN'T WHANT ANYTHING ELSE TO EAT. SAYS HE WANTS TO GO SLOW SO HE DOESN'T GET SICK.
--- NOTE | 2018-12-09 09:04 | NUR ---
DR. JONES HERE TO SEE PATIENT. PATIENT IS RESTFUL WITHOUT C/O.
--- NOTE | 2018-12-09 09:40 | NUR ---
DR. CALI HERE TO SEE PATIENT. ORDERS RECIEVED.
--- NOTE | 2018-12-09 10:00 | NUR ---
UP TO CHAIR WITH ASSIST. HR AT REST 112, HR WITH EXERTION-130. C/O INCREASED ABD PAIN WITH MOVEMENT.
--- NOTE | 2018-12-09 10:02 | NUR ---
NORCO 1 5/325 PO GIVEN FOR PAIN.
--- NOTE | 2018-12-09 10:40 | NUR ---
BACK TO BED PER R/O. IS FAIRLY STEADY ON FEET. DENIES DIZZINESS. INCREASED ABD DISCOMFORT WITH MOVEMENT. IS IN ROOM. TALKED WITH PATIENT AGAIN HOW IMPORTANT NUTRITION AND ACTIVITY ARE FOR RECOVERY, ENC TO USE I.S.
--- NOTE | 2018-12-09 11:28 | NUR ---
NAPPING, NOW DISTRESS NOTED.
--- NOTE | 2018-12-09 12:00 | NUR ---
IS ASLEEP. NO DISTRESS NOTED. NOT AWAKENED FOR ASSESSMENT AT THIS TIME.
--- NOTE | 2018-12-09 13:20 | NUR ---
WOKE TO EAT AND USE I.S. VERY FLAT AFFECT.
--- NOTE | 2018-12-09 14:00 | NUR ---
TOOK ONLY FEW BITES OF MASHED POTATOES. STATES HE WANTS A CHEESEBUGER WITH PICKLES AND ONIONS.
--- NOTE | 2018-12-09 14:30 | NUR ---
MESSAGE LEFT ON DR. CALI CELL PHONE REGARDING U/O AND POSSIBLE INCREASE DIET. PATIENT IS VERY DROWSY.
--- NOTE | 2018-12-09 15:58 | NUR ---
WOKE FOR ASSESSMENT. HAS BEEN ASLEEP MOST OF AFTERNOON. VERY POOR APPETITE.
--- NOTE | 2018-12-09 16:45 | NUR ---
UP TO CHAIR WITH ASSIST. AMBULATED FROM BED TO CLOSET THEN TO CHAIR. TOLERATED FAIR. INCREASED PAIN WITH MOVEMENT. HR TO 120 WITH MOVEMENT.
--- NOTE | 2018-12-09 16:55 | NUR ---
DR. CALI UDATED ON PATIENT, ORDERS RECIEVED TO GIVE 500 ML BOLUS OF LR, KCL TOTAL OF 40 MEQ, DIET TOLERATED 2 GM NA.
--- NOTE | 2018-12-09 17:20 | NUR ---
BACK TO BED. SITTING UP IN BED FOR DINNER. LR BOLUS 500 ML INFUSING. KCL 20 MEQ IV INFUSING OVER 2 HR X 2.
--- NOTE | 2018-12-09 17:35 | NUR ---
C/O STOMACH CRAMPING, POINTING TO LEFT LOWER QUAD. PATIENT STATES HE HAS HAD THIS FEELING AT HOME IN THE PAST. DENIES NAUSEA.
--- NOTE | 2018-12-09 18:05 | NUR ---
BOLUS LR 500 COMPLETE.
--- NOTE | 2018-12-09 19:33 | NUR ---
REPORT TO NEXT SHIFT. K RIDER CONTINUE TO INFUSE.
--- NOTE | 2018-12-09 20:00 | NUR ---
RECEIVED REPORT AT 1900, PT WAS IN BED SLEEPING. WITH FIRST ASSESSMENT AT THIS TIME, ALL LOBES ARE CLEAR BUT DIMINISHED IN THE BASES, ABD SOUNDS ARE HYPOACTIVE WITH INCREASING ASCITIS PRESENT SINCE LAST NIGHT. NO PERIPHERAL EDEMA NOTED. URINE FROM WAS 26 ML.
--- NOTE | 2018-12-09 21:18 | NUR ---
PT IS SLEEPING, MD CALI WAS CALLED IN REGARDS TO LOW URINE OUTPUT. A 500ML LR BOLUS WAS ORDERED. CYTOLOGY WAS WANTED BY MD CALI BUT ORDER WAS NEVER PUT IN. MD JONES WAS UNABLE TO PUT IN LAB AND IN-HOUSE TRUCK CAR AND BUS CLEANER WILL TRY TO FIND OUT HOW TO ENTER NEEDED LAB FOR CYTOLOGY. BOLUS IS RUNNING AND PT IS SLEEPING.
--- NOTE | 2018-12-09 22:46 | NUR ---
PT IS SLEEPING. PT STATED THAT HE HAS NO HUNGER EARLIER AND DOES NOT WANT TO EAT ANYTHING.
--- NOTE | 2018-12-10 | NUR ---
NO CHANGES NOTED DURING THE SECOND ASSESSMENT. PT AT THIS TIME SEEMS ANNOYED WITH THE CONSTANT ENTERING OF ROOM IN REGARDS TO HIS URINE OUTPUT. WILL CONTINUE TO MONITOR. URINE OUTPUT STILL VERY LOW. SEE I&O.
--- NOTE | 2018-12-10 02:00 | NUR ---
URINE OUTPUT HAS INCREASED TO 325ML/HR FROM [id number] DUE TO 20MG IV LASIX. ALBUMIN IS ALSO ABOUT TO BE ADMINISTERED. PT IS SLEEPING STILL. WILL CONTINUE TO MONITOR.
--- NOTE | 2018-12-10 04:14 | NUR ---
PT IS STILL SLEEPING. NO NEW FINDINGS WITH 0400 ASSESSMENT. ABD IS STILL INCREASING IN SIZE AND PT IS ALSO COMPLAINING OF NAUSEA BUT REFUSED ANY TREATMENT FOR IT. WILL CONTINUE TO MONITOR.
--- NOTE | 2018-12-10 05:17 | NUR ---
URINE OUTPUT SO FAR IS STILL ADEQUATE. PT IS STILL SLEEPING. NO PO INTAKE SO FAR AND I WAS UNABLE TO MOTIVATE PT SO FAR. PT COMPLAINED OF NAUSEA BUT REFUSED ANY MEDICATION.
--- NOTE | 2018-12-10 06:30 | NUR ---
PT DID WANT SOME ZOFRAN TO HELP WITH NAUSEA A LITTLE WHILE AGO. OTHERWISE NO NEW CONCERNS NOTED AT THIS TIME.
--- NOTE | 2018-12-10 07:30 | NUR ---
REPORT RECIEVED. P[ATIENT IS ASLEEP. NO DISTRESS NOTED.
--- NOTE | 2018-12-10 07:45 | NUR ---
STATED FEELS LIKE HE NEEDS TO URINATE. GENTILE CATH TUBING DRAINED FOR 190 ML OF CLEAR YELLOW URINE. PATEIENT THEN STATES FEELS BETTER, DENIES BLADDER PRESSURE. STATES HE HAD BAD NIGHT, DID NOT SLEEP. C/O NAUSEA AND PACHECO.
--- NOTE | 2018-12-10 08:15 | NUR ---
DR. JONES HERE TO SEE PATIENT.
--- NOTE | 2018-12-10 08:20 | NUR ---
[facility] NOTIFIED TO ASK IF OK FOR PATIENT TO HAVE ROUTINE MORNING MEDICATIONS, THIS OK, MEDS GIVEN. OSTOMY BAG INTACT. HAS VERY FLAT AFFECT.
--- NOTE | 2018-12-10 09:10 | NUR ---
[facility] NURSE CALLED TO CHECK ON PATIENT. UPDATE ON PATIENT VIA PHONE.
--- NOTE | 2018-12-10 09:30 | NUR ---
REUSED PHYS THERAPY AT THIS TIME. PATIENT WISHES TO BE LEFT ALONE.
--- NOTE | 2018-12-10 10:14 | NUR ---
sleeping, no distress noted.
--- NOTE | 2018-12-10 11:54 | NUR ---
ASLEEP, HAS BEEN ASLEEP MOST OF DAY SO FAR. NOT AWAKENED FOR ASSESSMENT AT THIS TIME. IVF CONTINUE TO INFUSE. NO DISTRESS NOTED.
--- NOTE | 2018-12-10 13:10 | NUR ---
WOKE BRIEFLY, STATES "I JUST CAN'T WAKE UP" DENEIS PAIN OSTOMY BAG INTACT WITH SMALL AMOUNT OT LIQUID STOOL NOTED.
--- NOTE | 2018-12-10 14:01 | NUR ---
CONTINUE TO SLEEP. NO DISTRESS NOTED. AWATING HIDA SCAN. HAS BEEN NPO SINCE EARLY AM.
--- NOTE | 2018-12-10 15:35 | NUR ---
TO XRAY FOR NUC MED TEST. DR. JONES SAID RN NOT NEEDED TO ACCOMP PATIENT. IVF ON HOLD DURNING TEST.
--- NOTE | 2018-12-10 18:46 | NUR ---
TAKING ENSURE. SITTING UP IN BED WATCHING TV.
--- NOTE | 2018-12-10 19:01 | NUR ---
NO CHANGES, REFUSING FUTHER PO NUTRITION, WATCHING TV. REPORT TO NEXT SHIFT.
--- NOTE | 2018-12-10 19:30 | NUR ---
SHIFT REPORT RECEIVED FROM JHON ALVARADO. PT ROXANNETAB RESTING IN BED WITH EYES CLOSED. NO APPARENT DISTRESS.
--- NOTE | 2018-12-10 19:49 | NUR ---
DR. CALI IN TO SEE PT AND DISCUSS FINDINGS FROM HIDA SCAN. PER DR. CALI, PT MAY HAVE LIQUID DIET TOLERATED. BLINDS CLOSED PER PT REQUEST, NO FURTHER NEEDS AT THIS TIME.
--- NOTE | 2018-12-10 20:50 | NUR ---
ASSESSMENT COMPLETED, SEE DOCUMENTATION. PT DENIES PAIN AND NAUSEA AT THIS TIME. UO ADEQUATE, GENTILE CATH CARE COMPLETED AT THIS TIME. OSTOMY APPLIANCE IN PLACE, SCANT AMOUNT OF LIQUID STOOL PRESENT, DOES NOT NEED EMPTIED AT THIS TIME. MIDLINE INCISION IS WELL-APPROXIMATED, DERMABOND IN PLACE, OLD LAP SITE TO RUQ, OPEN TO AIR AND DRY. NO S/SX OF INFECTION NOTED. SCD'S IN PLACE. PT DENIES REQUESTS AT THIS TIME, CALL LIGHT WITHIN REACH.
--- NOTE | 2018-12-10 21:49 | NUR ---
PT APPEARS TO BE RESTING COMFORTABLY. RR:16, HR:84. WILL ALLOW FOR REST AND CONTINUE TO MONITOR.
--- NOTE | 2018-12-10 23:43 | NUR ---
PT CALLED, STATED HE FELT LIKE HIS BLADDER WAS FULL. GENTILE DID HAVE AN AIRLOCK AND 180ML WAS DRAINED, PT STATES HE NOW FEELS BETTER. CONTINUES TO DENY PAIN AND NAUSEA. IV SITES WNL. OSTOMY APPLIANCE INTACT, DOES NOT NEED EMPTIED AT THIS TIME. OLD SURGICAL SITES REMAIN WNL. SCD'S IN PLACE. PT DENIES FURTHER REQUESTS AT THIS TIME, CALL LIGHT WITHIN REACH.
--- NOTE | 2018-12-11 02:25 | NUR ---
PT CALLED TO REPORT THAT HIS GENTILE FELT AIRLOCKED AGAIN. AFTER MANIPULATING TUBING, 160ML URINE DRAINED FROM BLADDER. PT ALSO REPORTS THAT HE IS FEELING NAUSEATED, PRN ZOFRAN GIVEN. HE ASKED IF HE'D BEEN GIVEN ANYTHING FOR SLEEP AND I INFORMED HIM THAT HE HAS PRN BENADRYL AVAILABLE, WHICH HE REQUESTED AT THIS TIME. CONTINUES TO DENY PAIN. NO FURTHER REQUESTS AT THIS TIME.
--- NOTE | 2018-12-11 04:35 | NUR ---
PT SLEEPING, NO APPARENT DISTRESS. RESPIRATIONS EVEN AND UNLABORED. RR:16, HR:76. WILL ALLOW FOR REST AND CONTINUE TO MONITOR.
--- NOTE | 2018-12-11 05:44 | NUR ---
PT AWOKE DURING MORNING LAB DRAW, VITAL SIGNS OBTAINED AND WNL. PT REPORTS NAUSEA, 4MG ZOFRAN GIVEN TO TITRATE TO TOTAL DOSE OF 8MG. HE ALSO REPORTS 5/10 PAIN IN LEFT SHOULDER AND ABDOMEN, PRN NORCO GIVEN. PT STOOD AT SIDE OF BED WITH FWW FOR STANDING WEIGHT: 138.6. PT TOLERATED WELL, APPEARS FAIRLY STEADY ON FEET. PT NOW BACK IN BED, DENIES REQUESTS AT THIS TIME, CALL LIGHT WITHIN REACH.
--- NOTE | 2018-12-11 06:14 | NUR ---
FRESH ICE WATER AND A CHOCOLATE ENSURE PROVIDED PER PT REQUEST.
--- NOTE | 2018-12-11 11:15 | NUR ---
DR. CALI IN ROOM WITH PATIENT DISCUSSING PLAN OF CARE. STOOL SAMPLE POSITIVE FOR C. DIFF AND PATIENT EDUCATED ON IMPORTANCE OF HANDWASHING. ISOLATION PRECAUTIONS TO BE INITIATED. ASSESSMENT COMPLETE AND CRACKLES HEARD BILATERALLY IN UPPER AND LOWER LOBES. PATIENT LAYING IN BED IN HIGH FOWLERS POSITON, DENIES ANY FURTHER NEEDS AT THIS TIME. CALL LIGHT WITHIN REACH.
--- NOTE | 2018-12-11 12:49 | NUR ---
PATIENT TO TRANSFER TO ROOM 113 ON MEDICAL SURGICAL FLOOR VIA HOSPITAL BED. ALL PERSONAL BELONGINGS ACCOMPANYING PATIENT TO NEW ROOM. COLOSTOMY BAG AND GENTILE EMPTIED PRIOR TO TRANSPORT.
--- NOTE | 2018-12-11 13:18 | NUR ---
PT TO FLOOR TO ROOM 113 VIA BED ACCOMPANIED BY MINESH RN AND SUELLEN, STUDENT NURSE. RECIEVED REPORT VIA TELEPHONE FROM SUELLEN AND MINESH PRIOR TO PT TRANSFER TO FLOOR. PT HAS LUNCH AT BEDSIDE, BUT STATES THAT HE IS NOT GOING TO EAT IT RIGHT NOW. REFUSED OFFERED ENSURE. WILL CONTINUE TO ENCOURAGE PT TO EAT AND DRINK.
--- NOTE | 2018-12-11 13:51 | NUR ---
RN MINESH MENTIONED TO ME THAT SHE WAS CONCERNED WITH PT-HE SEEMS SOMEWHAT DISCOURAGED TODAY. CHECKING ON PT I FOUND HIM KIND OF QUIET BUT RESPONSIVE.HE STATED THAT HE WAS OK, REQUESTED PRAYER. PT THANKED ME FOR STOPPING BY, WILL FOLLOW NEEDED
--- NOTE | 2018-12-11 16:51 | NUR ---
PT C/O SEVERE NAUSEA. GAVE ZOFRAN 8 MG IV PRN. ASSISTED PT IN ORDERING DINNER, HALF SALAD WITH TURKEY, CUBAN CHEESE, PROVOLONE CHEESE, AND ALSO APPLE JUICE. PT DECLINED ENSURE.
--- NOTE | 2018-12-11 17:31 | NUR ---
PT TRANSFERED FROM CCU TO FLOOR THIS AFTERNOON. PT HAS OSTOMY TO LEFT MID ABDOMEN, WHICH WAS EMPTIED PRIOR TO TRANSFER TO FLOOR. PT ON ENTERIC CONTACT PRECAUTIONS. PT ALERT, ORIENTED X 4. PT HAS CRACKLES IN ALL LUNG REDD. HAS GENTILE CATHETER IN PLACE. DRAINING CLEAR YELLOW URINE. BOWEL TONES HYPERACTIVE X 4. PT REFUSED LUNCH, REFUSED ENSURE. IS CURRENTLY EATING DINNER, WILL MONITOR INTAKE. PT GIVEN ZOFRAN 8 MG IV PRN NAUSEA PRIOR TO DINNER. HAS D5LR INFUSING AT 50 ML/HR.
--- NOTE | 2018-12-11 18:38 | NUR ---
PT IN BED, AWAKE, ALERT. STILL HAS NOT STARTED EATING DINNER. OFFERED ENSURE, ENCOURAGED PT TO EAT, DRINK. PT STATED "I WILL IN A WHILE". PROVIDED EDUCATION REGARDING NEED FOR PROPER NUTRITION. PT VERBALIZED UNDERSTANDING.
--- NOTE | 2018-12-11 20:12 | NUR ---
IV ALARM SOUNDING. PT IN BED, EYES OPENED WHEN RN ENTERED ROOM. NO NEEDS AT THIS TIME.
--- NOTE | 2018-12-11 21:00 | NUR ---
PATIENT SITTING IN BED, NO NEEDS AT THIS TIME. PREPARING TO GET EVENING MEDS.
--- NOTE | 2018-12-11 23:21 | NUR ---
PATIENT RESTING QUIETLY, EYES CLOSED, RESPS REGULAR AND EVEN AT 16. CALL LIGHT IN REACH.
--- NOTE | 2018-12-12 00:44 | NUR ---
PATIENT RESTING QUIETLY SUPINE, RESPIRATIONS REGULAR AND EVEN AT 16, EYES CLOSED, CALL LIGHT IN REACH.
--- NOTE | 2018-12-12 02:45 | NUR ---
PATIENT RESTING SUPINE,RESPIRATIONS REGULAR AND EVEN AT 16. EYES CLOSED AND CALL LIGHT IN REACH.
--- NOTE | 2018-12-12 05:23 | NUR ---
PATIENT HAS REMAINED IN BED ALL NIHGT. GENTILE DRAINING WELL. PATIENT CONTINUES TO HAVE A POOR APPITITE. 2229 PATIENT HAD 1 PO NORCO FOR ABD PAIN AFTER HEPARIN SHOT. PATIENT'S ABD CONTINUES TO BE DISTENDED AND TIGHT. BOTH IV'S FLUSH WELL AND IV CONTINUES TO RUN D5LR AT 50MLS/HR.
--- NOTE | 2018-12-12 06:33 | NUR ---
PATIENT GIVEN 12.5MG PROMETHAZINE FOR NAUSEA.
--- NOTE | 2018-12-12 07:10 | NUR ---
PT RESTING SUPINE IN BED, EYES CLOSED AND RESPIRATIONS EVEN AND UNLABORED. PT APPEARS TO BE SLEEPING COMFORTABLY. CALL LIGHT AND H20 IN REACH.
--- NOTE | 2018-12-12 09:10 | NUR ---
PT RESTING SUPINE IN BED RESTING WITH EYES CLOSED. PT APPEARS TO BE SLEEPING COMFORTABLY. CALL LIGHT AND H2O IN REACH. PT ALERT TO VOICE AND ASSESSMENT COMPLETED. PT DENIES NEEDS/CONCERNS. STUDENT NURSE AND INSTRUCTOR IN ADMINISTERING MEDICATIONS.
--- NOTE | 2018-12-12 10:36 | NUR ---
PT RESTING SUPINE IN BED REPORT NAUSEA AND PAIN OF 5/10 TO ABDOMEN. CALL LIGHT AND H2O IN REACH. PT DENIES NEEDS/CONCERNS.
--- NOTE | 2018-12-12 12:35 | NUR ---
PT RESTING SUPINE IN BED, EYES CLOSED AND RESPIRATIONS EVEN AND UNLABROED. CALL LIGHT AND H2O IN REACH. PT APPEARS TO BE SLEEPING COMFORTABLY.
--- NOTE | 2018-12-12 15:10 | NUR ---
PT RESTING SUPINE IN BED WATCHING TV. ASSESSMENT COMPLETED. PT REPORTS 12/23 TO ABDOMEN AFTER AMBULATING SEVERAL LAPS IN HALLS WITH SN NG. PT STATES "I FEEL GREAT OVER ALL NOW THAT I GOT TO GET A SHOWER AND GET UP AND WALK FOR A LITTLE BIT. I JUST HAVE SOME ABDOMINAL PAIN THAT GOT WORSE AFTER BEING UP". PRN PO OPIOD ADMINISTERED -SEE EMAR. CALL LIGHT AND H20 IN REACH.
--- NOTE | 2018-12-12 17:41 | NUR ---
PT RESTING SUPINE IN BED WATCHING TV AND CALL LIGHT AND H20 IN REACH. PT DENIES NEEDS AND STATES SHE IS COMFORTABLE.
--- NOTE | 2018-12-12 18:24 | NUR ---
PT A/O X4, VSS ON ROOM AIR. SBA WITH FWW. PT HAD A SHOWER AND AMBULATED HALLS WITH SBA AND FWW AND APPEARED TO BE IN GOOD SPIRITS THIS SHIFT. PT CONTINUES TO REPORT DECREASED APPETITE AND DID NOT TOLERATE ANY OF HIS FOOD TODAY. PT CONTINUES TO REPORT INTERMITTANT PAIN TO ABDOMEN AND SHOULDER WHICH IS WELL CONTROLLED WITH PRN PO NORCO. PT HAS DIETARY CONSULT ORDERED AT DR KELLY REQUEST TO EVALUATE NEED FOR TUBE FEEDINGS.
--- NOTE | 2018-12-12 19:38 | NUR ---
PATIENT NAUSEA FREE AND PAIN UNDER CONTROL. PATIENT TRYING TO EAT SOME DINNER HE SITS IN BED. CALL [facility] IN REACH.
--- NOTE | 2018-12-12 21:12 | NUR ---
VITALS AND I&OS DONE AND CHARTED. CHANGED PT'S ATTEND AND CHUCKS DUE TO INCONTINENT OF URINE. EMPTIED OSTOMY BAG. BEDSIDE TABLE AND CALL LIGHT IN REACH.
--- NOTE | 2018-12-12 22:45 | NUR ---
PATIENT GIVEN ONE NORCO FOR ABD PAIN 6/10 AND 12.5 IV PROMETHAZINE IN 20 MLS NS IV FOR NAUSEA.
--- NOTE | 2018-12-12 23:03 | NUR ---
FRESH ICE GIVEN FOR WATER.
--- NOTE | 2018-12-13 00:20 | NUR ---
PATIENT RESTING QUIETLY NOW EYES CLOSED AND IN LOW FOWLERS POSITION. RESPIRATTIONS RESPIRATIONS REGULAR AND EVEN AT 16.
--- NOTE | 2018-12-13 02:30 | NUR ---
PATIENT RESTING QUIETLY IN LOW FOWLERS POSITION, EYES CCLOSED RESPIRATIONS REGULAR AND EVEN, EYES CLOSED, CALL LIGHT IN REACH.
--- NOTE | 2018-12-13 04:30 | NUR ---
PATIENT CONTINUES TO REST QUIETLY, RESPIRATIONS REGULAR AND EVEN AT A RATE OF 16, CALL LIGHT IN REACH.
--- NOTE | 2018-12-13 06:45 | NUR ---
PATIENT HAD NAUSEA AND 6/10 ABD PAIN AT EVENING MED PASS AND THIS MORNING. EACH TIME HE WAS GIVEN 1 NORCO AND 12.5MG IV PROMETHAZINE DILUTED IN 20MLS NS. WHICH HAS RELIEVED HIS PAIN AND NAUSEA BOTH TIMES. OTHERWISE THE PATIENT SLEPT THROUGH THE NIGHT. BOTH IV'S ARE PATENT AND FLUSH WELL. PATIENT IS USING THE URINAL, BUT DID HAVE ONE ACCIDENTT WITH URINE REQUIRING A BED CHANGE.
--- NOTE | 2018-12-13 07:10 | NUR ---
REPORT RECEIVED FROM JT FERREIRA. PT RESTING SUPINE IN BED WATCHING TV. PT STATES HE HAD A GOOD NIGHT AND DENIES PAIN OR NAUSEA AT THIS TIME. CALL LIGHT AND H20 IN REACH. NO NEEDS/CONCERNS VOICED.
--- NOTE | 2018-12-13 08:59 | NUR ---
PATIENT STILL WITH POOR APPETITE, HARDLY CONSUMING 500 CALORIES DAILY. I RECOMMEND CONSIDERING A PEG TUBE FOR BOLUS ENTERAL FEEDS. I RECOMMEND JEVITY 1.5 300 ML QID. THIS IS SIMILAR TO WHAT HE WAS RECEIVING BEFORE FROM [facility]. THIS WILL PROVIDE 1775 CALORIES, 75 GRAMS PROTEIN, AND 912 ML WATER. PATIENT CAN STILL EAT WHAT HE CAN BY MOUTH. WILL CONTINUE TO MONITOR.
--- NOTE | 2018-12-13 09:15 | NUR ---
PT SITTING UP IN BED STATES HE DIDN'T EAT ANY OF HIS BREAKFAST BECAUSE IT WASN'T APPETIZING TO HIM PT AGREES TO EAT SOME BANNANA AND A CHOCOLATE ENSURE. PT ASSESSMENT COMPLETED. PT STATES TODAY HIS APPLIANCE IS DUE TO BE CHANGED OUT AND INQUIRED ABOUT THE SUPPLIES WE CARRY AND AGREES TO USE CALL LIGHT WHEN HE IS READY TO CHANGE IT. CALL LIGHT, H2O CHOCOLATE ENSURE, BANANNA AND PERSONAL ITEMS IN REACH. PT STATES HE FEELS BLOATED AND MENTIONED THAT DR JONES MENTIONED YESTERDAY THAT HE MAY NEED ANOTHER PEROCENTESIS TO DRAIN FLUID OFF OF HIS ABDOMEN. NO FURTHER CONCERNS OR REQUESTS VOICED. MD NOTIFIED OF PT'S PERSISTING LACK OF APPETITE AND OF PT'S CONCERN THAT HE IS BUILDING UP INCREASED FLUID TO ABDOMEN.
--- NOTE | 2018-12-13 11:12 | NUR ---
PT RESTING SUPINE IN BED REPORTS NAUSEA. PT STATES HE WAS ONLY ABLE TO TOLERATE A FEW SIPS OF HIS ENSURE AND DIDN'T EAT ANY OF HIS BANNANA. CALL LIGHT AND H2O IN REACH. PRN IV ZOFRAN ADMINISTERED PER PT REQUEST. NO FURTHER NEEDS/CONCERNS VOICED.
--- NOTE | 2018-12-13 12:03 | NUR ---
PT RESTING SUPINE IN BED WITH EYES CLOSED AND RESPIRATIONS EVEN AND UNLABORED. PT APPEARS TO BE SLEEPING COMFORTABLY. CALL LIGHT AND H2O IN REACH.
--- NOTE | 2018-12-13 12:21 | NUR ---
PT UP AMBULATING IN HALLS WITH RN. PT RECOGNIZED ME AND SAID HELLO. PT SEEMED TO BE FEELING BETTER, ENJOYING THE WALK. EXTENDED A BLESSING. WILL FOLLOW NEEDED
--- NOTE | 2018-12-13 14:02 | NUR ---
ODERED PATIENT BREAKFAST THIS MORNING. ALSO HE SAID HE WOULD LIKE TO TAKE A SHOWER SOMETIME TODAY.
--- NOTE | 2018-12-13 15:53 | NUR ---
PEG TUBE NOT THE BEST FOR PATIENT HE HAS ASCITES. PATIENT HAS NOT EATEN MORE THAN 1 BITE TODAY. HE HAS BEEN REFUSING ENSURES. STATES HE DOESN'T FEEL LIKE EATING BECAUSE OF DISTENDED ABDOMEN. SPOKE WITH JHON TRIANA AND DR. MAZA ABOUT POSSIBLY PLACING A DOBHOFF AGAIN, BUT THAT WOULD ONLY BE TEMPORARY. FAR CARE HOME PLAN, THAT IS UNKNOWN. WILL CONTINUE TO MONITOR.
--- NOTE | 2018-12-13 16:00 | NUR ---
PT RESTING SUPINE IN BED, PT REPORTS NO APPETITE AND ONLY TOLERATED ONE BITE OF DINNER. PT REPORTS THAT HE IS STILL SIPPING ON HIS ENSURE AND DENIES WANTING ANOTHER ONE. STOMMA APPLIANCE AND BAG WAS REPLACED AT THIS TIME IT WAS SCHEDULED TO BE CHANGED TODAY. PT STATES "I FEEL SO BLOATED I FEEL LIKE IT'S ALL THIS SWELLING THAT IS PRESSING ON MY STOMACH AND MAKING ME FEEL THIS WAY". DR MAZA WAS NOTIFIED OF THIS. CALL LIGHT AND H20 IN REACH. NO FURTHER NEEDS/CONCERNS VOICED.
--- NOTE | 2018-12-13 17:35 | NUR ---
PATIENT RESTING IN BED. VITAL SIGNS AND I&O DONE. CALL LIGHT WITHIN REACH. NO OTHER NEEDS AT THIS TIME
--- NOTE | 2018-12-13 17:53 | NUR ---
PT RESTING SUPINE IN BED EYES CLOSED AND RESPIRATIONS EVEN AND UNLABORED. PT APPEARS TO BE SLEEPING COMFORTABLY. CALL LIGHT AND H2O IN REACH.
--- NOTE | 2018-12-13 18:48 | NUR ---
PT RESTING SUPINE IN BED EYES CLOSED BUT ALERT TO VOICE. SCHEDULED PROTONIC ADMINISTERED AND RIGHT LOWER FA IV WAS DC'D IT IS NO LONGER NEEDED AND WAS SCHEDULED FOR ROTATION. IV TO UPPER LEFT FOREARM REMAINS PATENT WITH NO S/SX'S OF INFECTION. CALL LIGHT AND H20 IN REACH. OFFERED PT CLEAR ENSURE, JUICE, TEA ETC BUT PT STATES "NO I DON'T WANT ANYTHING". PT DENIES NAUSEA OR PAIN AT THIS TIME. NO FURTHER NEEDS/CONCERNS VOICED.
--- NOTE | 2018-12-13 19:20 | NUR ---
RECEIVED REPORT FROM JHON TRIANA. pt RESTING IN BED. NO REQUESTS AT THIS TIME. UPDATED WITH PLAN FOR NIGHT. CALL LIGHT WITHIN REACH.
--- NOTE | 2018-12-13 21:18 | NUR ---
CHARGE NURSE ROUNDING NOTE: PT CONTINUES ON ENTERIC CONTACT ISOLATION, NO REQUESTS, AWAKE, CALL LIGHT AND FLUIDS AT BEDSIDE
--- NOTE | 2018-12-13 21:40 | NUR ---
pt COMPLAINING OF 7/10 PAIN IN ABD. PRN MED GIVEN FOR PAIN AND NAUSEA WITH SCHEDULED MEDICATIONS (SEE MAR). ASSESSMENT DONE. pt REPORTED TIGHTNESS IN ABD AND FEELING "BLOATED". ENCOURAGED TO MOVE pt WILL CALL WHEN READY. pt BURPING FREQUENTLY. VSS, I&O RECORDED. ICE WATER PROVIDED. CALL LIGHT WITHIN REACH.
--- NOTE | 2018-12-13 22:40 | NUR ---
ROUNDED ON pt. RESTING WITH EYES CLOSED, RESPIRATIONS REGULAR, RATE 16. CALL LIGHT WITHIN REACH.
--- NOTE | 2018-12-13 23:29 | NUR ---
pt RESTING WITH EYES CLOSED RESPIRATIONS REGULAR AND UNLABORED. RATE = 16. CALL LIGHT WITHIN REACH.
--- NOTE | 2018-12-14 01:20 | NUR ---
ROUNDED ON pt. RESTING WITH EYES CLOSED, RESPIRATIONS REGULAR AND UNLABORED. CALL LIGHT WITHIN REACH.
--- NOTE | 2018-12-14 02:58 | NUR ---
ROUNDED ON pt. DENIED PAIN AND NAUSEA. NO REQUESTS AT THIS TIME. CALL LIGHT WITHIN REACH.
--- NOTE | 2018-12-14 03:43 | NUR ---
CALL LIGHT ON. pt REQUESTED URINAL BE EMPTIED. REPORTED FEELING "BETTER" DENIED PAIN, DENIED NAUSEA. ASSESSMENT DONE. STOOL NOTED IN OSTOMY BAG. FRESH ICE WATER PROVIDED. NO FURTHER REQUESTS. CALL LIGHT WITHIN REACH.
--- NOTE | 2018-12-14 06:27 | NUR ---
pt RESTED ON AND OFF DURING SHIFT. PRN PAIN MEDS AND REGLAN GIVEN ONCE. COMPLAINED OF BLOATING AT BEGINNING OF SHIFT IMPROVED SHIFT PROGRESSED. pt REPORTED ABD PAIN WHEN STANDING FOR DAILY WT, REFUSED PAIN MEDS. VERY LITTLE PO INTAKE. ENCOURAGED ENSURE. COLOSTOMY BAG. VOIDING QS. SBA FWW. SCDS. USES CALL LIGHT APPROPRIATELY.
--- NOTE | 2018-12-14 07:30 | NUR ---
Pt sleeping, resp even and non labored. Pt is on ra at this time. No distress noted. Personal supplies and call light within reach.
--- NOTE | 2018-12-14 07:59 | NUR ---
PATIENT RESTING IN BED. PATIENT'S BREAKFAST ORDERED. CALL LIGHT WITHIN REACH. NO OTHER NEEDS AT THIS TIME
--- NOTE | 2018-12-14 13:38 | NUR ---
CALL TO [facility] WITH MEDICAL RECORD REQUEST.
[2018-12-14] MEDS ORDERED: CONSTULOSE10 GM/15 M PO (16:41)
--- NOTE | 2018-12-14 16:59 | NUR ---
ADMIN GI COCKTAIL FOR NAUSEA AND UPSET STOMACH.
--- NOTE | 2018-12-14 18:05 | NUR ---
A&OX3. RA. NORCO PRN ABD PAIN. ZOFRAN AND GI COCKTAIL PRN NAUSEA. COLOSTOMY BAG; TEACH SELF CARE. TOLERATING DIET POOR; MEGACE STARTED. STANDBY ASSIST BR. ENCOURAGE PO INTAKE AND PROPER DIET.
--- NOTE | 2018-12-14 18:52 | NUR ---
ADMIN ONE TAB NORCO AND ZOFRAN 4MG IVP FOR REPORTS OF 6/10 ABD PAIN AND NAUSEA.
--- NOTE | 2018-12-14 19:27 | NUR ---
REPORT RECEIVED, PT RESTING IN BED, NO REQUSTS AT THIS TIME, CALL LIGHT WITHIN REACH. FALL PRECAUTIONS IN PLACE.
--- NOTE | 2018-12-14 21:00 | NUR ---
CHARGE NURSE ROUNDING NOTE:, AWAKE, ORIENTED, NO C/O PAIN. FRESH WATER W/O ICE GIVEN ONREQUESTS, CALL LIGTH AND FLUIDS AT BEDSIDE. CONTINUES ON ENTERIC CONTACT ISOLATION PRECAUTIONS
--- NOTE | 2018-12-14 22:20 | NUR ---
EVENING MEDS ADMINISTERD, ASSESSMENT COMPLETE, PT AOX4, APPROPRIATE, PT'S VSS, PT STATES PAIN IS 4/10, BUT DENIES NEED FOR PRN PAIN MEDICATION AT THIS TIME, WILL REASSESS SHORTLY, PT'S ABD DISTENDED, BT ACTIVE, OSTOMY SITE HAS VERY SMALL AMOUNT OF LOOSE BROWN STOOL IN IT, PT DENIES NEED FOR EMPTYING OSTOMY SITE AT THIS TIME, PT DENIES ANY NEEDS AT THIS TIME, CALL LIGHT WITHIN REACH. FALL PRECAUTIONS IN PLACE.
--- NOTE | 2018-12-14 22:53 | NUR ---
PT OFFERED PRN PAIN MEDICATION, PT REFUSED NEED FOR PRN PAIN MEDICATION STATING THAT HIS PAIN IS CURRENTLY AT A 3-4/10, PT STATED THAT HE WILL NOTIFY THIS RN IF HE NEEDS PRN PAIN MEDICATION. NO OTHER NEEDS AT THIS TIME, CALL LIGHT WITHIN REACH.
--- NOTE | 2018-12-15 00:37 | NUR ---
PT RESTING IN BED, EYES CLOSED, BREATHS EVEN, UNLABORED, NO REQUESTS AT THIS TIME, CALL LIGHT WITHIN REACH.
--- NOTE | 2018-12-15 02:45 | NUR ---
CALL LIGHT ANSWERED, PT C/O 01/22 ABDOMINAL PAIN WELL NAUSEA STATING THAT HE FEELS THE URGE TO VOMIT, PT REQUESTING PRN PAIN MEDICATION WELL PRN NAUSEA MEDICATION, MEDS PROVIDED PER EMAR PER REQUEST, PT DENIES FURTHER NEEDS AT THIS TIME, ASSESSMENT COMPLETE. PT REMAINS TO HAVE DISTENDED ABDOMEN, NO NEW DRAINAGE IN PT'S COLOSTOMY, SMALL BROWN LOOSE STOOL NOTED, PT DENIES NEED TO EMPTY COLOSTOMY, PT ON RA, VSS, NO C/O SOB/CP, CDB ENCOURAGED, CALL LIGHT WITHIN REACH.
--- NOTE | 2018-12-15 04:19 | NUR ---
PT RESTING IN BED, EYES CLOSED, BREATHS EVEN, UNLABORED, NO REQUESTS AT THIS TIME. CALL LIGHT WITHIN REACH.
--- NOTE | 2018-12-15 05:05 | NUR ---
PT AOX4, APPROPRIATE, PT USES CALL LIGHT APPROPRIATELY, PT RECEIVED PRN PAIN MEDICATIKON X1 THIS SHIFT WELL PRN NAUSEA MEDICATION X1, PT'S ABD REMAINS DISTENDED, SOFT, PT'S COLOSTOMY HAS PUT OUT VERY LITTLE STOOL, AND HAS NOT REQUIRED BEING CHANGED, PT'S VSS, AFEBRILE. UO QS, USES URINAL, PT HAS BEEN RESTING WELL THIS SHIFT.
--- NOTE | 2018-12-15 06:48 | NUR ---
PT C/O NAUSEA ACCOMPANIED BY BURPING AND HICCUPS, PT GIVEN GI COCKTAIL PER EMAR FOR NAUSEA, PT ALSO C/O 7/10 PAIN, PT GIVEN PRN PAIN MEDICATION PER EMAR. PT DENIES FURTHER NEEDS AT THIS TIME. PT'S VSS, AFEBRILE, CALL LIGHT WITHIN REACH.
--- NOTE | 2018-12-15 07:14 | NUR ---
Pt awake, alert and oriented x3. Pt is on ra, resp even and non labored. Personal supplies and call light within reach. No needs at this time.
--- NOTE | 2018-12-15 17:34 | NUR ---
PT A&OX3. ON RA. PRN NORCO/ZOFRAN ABD PAIN AND NAUSEA. TOLERATING REG DIET OK; INCREASING INTAKE, MEGACE IN USE. COLOSTOMY; SELF CARE. STANDBY ASSIST BR. WORKED WITH PT IN ROOM. ABD DISTENDED; ASCITES.
--- NOTE | 2018-12-15 19:00 | NUR ---
REPORT RECEIVED FROM JHON VERNON. PT RESTING IN BED WITH EYES CLOSED. RR 16 ON RA.
--- NOTE | 2018-12-15 21:33 | NUR ---
ROUNDED CHARGE. PATIENT IS RESTING IN BED. EQUIPMENT WORKER IN ROOM COMPLETING VITALS. PATIENT COMPLAINS OF NAUSEA. DARRELL RN IN ROOM TO ADMINISTER NAUSEA MEDICATION. PATIENT DENIES ANY FURTHER NEEDS. PATIENT DENIES ANY COMMENTS, QUESTIONS, OR CONCERNS. CALL LIGHT IN REACH.
--- NOTE | 2018-12-15 21:56 | NUR ---
PT ASSESSMENT COMPLETE. PT C/O NAUSEA, DRY HEAVING, NO EMESIS. PRN NAUSEA MEDICATION ADMINISTERED IV. PT RESTING IN BED RATES PAIN 6-7/10 IN ABDOMEN. PRN PAIN MEDICATION ADMINISTERED. ABDOMEN DISTENDED, TENDER, BOWEL TONES ACTIVE X 4. OSTOMY BAG EMPTIED BY RN. PERSONAL SUPPLIES AND CALL LIGHT IN REACH. LIGHTS OFF IN ROOM.
--- NOTE | 2018-12-16 00:03 | NUR ---
CHECKED ON PT, RESTING IN BED WITH EYES CLOSED. VISIBLE CHEST RISE EQUAL BILATERALLY. LIGHTS OFF IN ROOM.
--- NOTE | 2018-12-16 02:30 | NUR ---
CHECKED ON PT. RESTING IN BED W EYES CLOSED. VISIBLE CHEST RISE, RR 18. LIGHTS OFF IN ROOM.
--- NOTE | 2018-12-16 06:17 | NUR ---
PT SLEEPING, AWAKENS WHEN RN ENTERS ROOM. PT RATES PAIN 4/10 IN ABDOMEN. VSS. OSTOMY BAG EMPTIED. PT REFUSES DAILY WEIGHT AT THIS TIME, REQUESTING TO REST. PRN GI COCKTAIL ADMINISTERED. ASSESSMENT COMPLETE. CALL LIGHT IN REACH.
--- NOTE | 2018-12-16 06:23 | NUR ---
PT APPEARED TO REST WELL THROUGHOUT SHIFT. PT DEPRESSED, THERAPEUTIC COMMUNICATION OFFERED THROUGHOUT SHIFT, REFUSES DAILY WEIGHT, NOT MOTIVATED TO EMPTY COLOSTOMY BAG. PAIN CONTROLLED W PRN NORCO X 2. DIMINISHED APPETITE. BOWEL TONES ACTIVE X 4. ASCITES, BOWEL TONES ACTIVE X 4. VSS. PRN GI COCKTAIL ADMINISTERED AVAILABLE. PO VANCO. NAUSEA MEDICATION PRN X 1 AT START OF SHIFT.
--- NOTE | 2018-12-16 07:30 | NUR ---
Pt sleeping, resp non labored. Personal supplies and call light within reach. No needs at this time. Call light within reach.
--- NOTE | 2018-12-16 08:34 | NUR ---
PATIENT UP TO CHAIR FROM BED, 1PA FWW. CALL LIGHT IN REACH. NO FURTHER NEEDS AT THIS TIME. LINENS CHANGED.
--- NOTE | 2018-12-16 09:24 | NUR ---
PATIENT IN CHAIR EATING BREAKFAST. IMAGING HERE TO TAKE PATIENT FOR SCAN. CALL LIGHT IN REACH. NO FURTHER NEEDS AT THIS TIME.
--- NOTE | 2018-12-16 09:51 | NUR ---
Pt left unit to go to DI for bowel follow through.
--- NOTE | 2018-12-16 11:00 | NUR ---
ADMIN ZOFRAN 8MG IVP FOR C/O NAUSEA.
--- NOTE | 2018-12-16 11:05 | NUR ---
CARE CONFERENCE INVOLVED: PT, PT , SAULO FERREIRA, AND MYSELF FROM CASE MANAGEMENT. WE DISCUSSED WHAT THE PT THOUGHT OF HIS PLAN FOR DISCHARGE, HE STATED THATS EASY GO HOME AND HAVE MY TAKE CARE OF ME. WHILE HE IS SAYING THIS SHE IS LOOKING AT ME CRINGING, SHE STATED I DON'T KNOW IF I AM ABLE TO CARE HER HIM HOW HE IS RIGHT NOW AND I WOULD JUST BRING HIM BACK HERE TO THE ER BECAUSE I DON'T KNOW HOW TO CARE FOR HIM WHILE HE IS THIS SICK AND WEAK. SHE STATES HE NEEDS TO GO SOMEWHERE. I MENTIONED THE NAMES AND TOWNS OF ALL THE SNF AROUND HERE AND SHE SAID I DON'T DRIVE AND IF HE GOES OUT OF TOWN I WILL NOT BE ABLE TO VISIT HIM AT ALL. HE THEN SAID HE WOULD GO TO [facility]. I EXPLAINED TO HIM WHAT IS TO EXPECTED OF HIM THERE FAR PARTICIPATING IN THE THERAPIES ETC. AND INCREASING HIS NUTRITIONAL STATUS. HE STATED HE UNDERSTANDS THIS AND WOULD LIKE ME TO SEND PAPERWORK FOR [facility]. I EXPLAINED TO HIM THAT NO ONE ELSE BUT HIM CAN DRIVE HIM TO MAKE ANY PROGRESS AND THAT DR SALAS HAD TOLD HIM IT WOULD BE A LONG RECOVERY PERIOD FROM THIS SURGERY WAS REINFORCED. PT AND STATED UNDERSTANDING AND WOULD LIKE PAPERWORK SENT OFF TO [facility].
--- NOTE | 2018-12-16 11:24 | NUR ---
PT GONE TO IMAGING, WILL CONTINUE TO FOLLOW
--- NOTE | 2018-12-16 13:30 | NUR ---
FAXED CHART NOTES INCLUDING FACE SHEET, ER NOTES AND SUMMARY, H AND P, PROG NOTES, PT EVAL AND NOTES. TO [facility] AFTER SPEAKING WITH DAQUAN. RECIEVED FAX CONFIRMATION OF THIS.
--- NOTE | 2018-12-16 14:57 | NUR ---
PATIENT IN BED RESTING. FRESH WATER GIVEN. CALL LIGHT IN REACH. NO FURTHER NEEDS AT THIS TIME.
--- NOTE | 2018-12-16 16:00 | NUR ---
DAQUAN FROM [facility] CALLED REQUESTING TO KNOW WHAT KIND OF CHEMO ETC IS THIS PT GOING TO BE RECIEVING. TOLD HER DR MACEDO'S MESSAGE, THEN FAXED DR YIN Constantino AND Ameena FROM 12/01/18 TO HER AT [facility]. RECIEVED FAX CONFIRMATION.
--- NOTE | 2018-12-16 16:42 | NUR ---
PT CONTINUES TO DECLINE TO STAND FOR A DAILY WEIGHT. EDUCATION PROVIDED TO PT REGARDING EXPECTED RECTAL MUCUS POST COLOSTOMY BAG.
--- NOTE | 2018-12-16 17:32 | NUR ---
PT A&OX3. ON RA. NORCO AND ZOFRAN IN USE FOR INTERMITTENT PAIN AND NAUSEA. STANDBY ASSIST. COLOSTOMY LLQ; NEEDS ENCOURAGED TO DO SELF CARE DUTIES. POOR APPETITE. ASCITES. PO VANCO. NOT MOVITVATED TO MOVE AND OR DO SELF CARE. LIKELY TO DISCHARGE TO [facility].
--- NOTE | 2018-12-16 18:01 | NUR ---
PATIENT IN BED. CALL LIGHT IN REACH. NO FURTHER NEEDS AT THIS TIME.
--- NOTE | 2018-12-16 18:19 | NUR ---
PT REFUSED HIDA SCAN. PT STATES HE IS UNABLE TO LAY FLAT FOR AN HOUR FOR THE STUDY AND NEEDS "MORPHINE". CALLED DR. SALAS REGARDING PT REFUSAL. UNABLE TO DO SCAN WITH NARCOTICS, PER REPORT.
--- NOTE | 2018-12-16 19:05 | NUR ---
BEDSIDE REPORT RECEIVED FROM JHON VERNON. PT RESTING IN BED AWAKE, USING URINAL. NO REQUESTS AT THIS TIME. CALL LIGHT IN REACH.
--- NOTE | 2018-12-16 21:40 | NUR ---
PT ASSESSMENT COMPLETE. PT DENIES NAUSEA. RATES PAIN 5/10 IN ABDOMEN, "ITS OKAY". VSS. PT REFUSES TO EMPTY OWN COLOSTOMY BACK, EMPTIED BY BETTY SINNISREEN ASSIST. URINAL EMPTIED. WATER PROVIDED. ABDOMEN DISTENDED, NON-TENDER W PALPATION. BOWEL TONES ACTIVE. IV FLUSHED WNL, SALINE LOCKED. CALL LIGHT IN REACH. LIGHTS OFF IN ROOM.
--- NOTE | 2018-12-17 00:24 | NUR ---
PT RESTING IN BED WITH EYES CLOSED. BREATHING NON-LABORED. LIGHTS OFF IN ROOM.
--- NOTE | 2018-12-17 02:34 | NUR ---
CHECKED ON PT, AWAKE IN BED. PT RATES PAIN 3/10 IN ABDOMEN "ITS NOT REALLY PAIN, ITS THE HICCUPS". PT ASSISTED TO REPOSITION. ASSESSMENT COMPLETE. BOWEL TONES HYPOACTIVE X 4, COLOSTOMY BAG WITH SMALL AMT BROWN STOOL. URINAL EMPTIED. PT HAS NO REQUESTS AT THIS TIME. CALL LIGHT IN REACH.
--- NOTE | 2018-12-17 06:05 | NUR ---
CALL LIGHT ANSWERED, PRN PAIN MEDICATION ADMINISTERED FOR 7/10 SHARP PAIN IN ABDOMEN. APICAL PULSE 145-160 REGULAR RHYTHM. DAILY WEIGHT 124.8 STANDING. PT C/O SOME LIGHTHEADEDNESS WITH STANDING. PRN ZOFRAN ADMINISTERED FOR NAUSEA, EMESIS BAG IN REACH. PT ENCOURAGED PO INTAKE. CALL LIGHT IN REACH. LAB IN ROOM.
--- NOTE | 2018-12-17 06:50 | NUR ---
PHONE CALL TO DR. MAZA NOTIFIED OF BLOOD PRESSURE AND HR. ORDER TO HOLD MORNING DOSE OF LASIX AND NOTIFY DR. SALAS. NO NEW ORDERS.
--- NOTE | 2018-12-17 07:18 | NUR ---
PHONE CALL TO DR. SALAS, HR AND BP REPORTED. TELEPHONE ORDER TO ADMINISTER PT'S CARDIZEM PO NOW REPEATED BACK. MEDICATION ADMINISTERED AT THIS TIME. HR 151, BP 92/64. PT RESTING IN BED DENIES CHEST PAIN AND SOB.
--- NOTE | 2018-12-17 07:25 | NUR ---
RECIEVED BEDSIDE REPORT FROM JHON RAMÍREZ. PT IN BED, DENIED CHEST PAIN OR SHORTNESS OF BREATH. HR 151, BP 92/64.
--- NOTE | 2018-12-17 07:46 | NUR ---
DR. MAZA IN TO SEE PT AT THIS TIME. PATRICIA, AUTOMOTIVE TECHNICIAN INSTRUCTOR PLACING TELE ON PT.
--- NOTE | 2018-12-17 08:15 | NUR ---
PATIENT REFUSED AM CARE, AND REFUSED TO GET UP TO CHAIR. PATIENT RESTING IN BED. CALL LIGHT IN REACH. NO OTHER NEEDS AT THIS TIME.
--- NOTE | 2018-12-17 08:33 | NUR ---
PT'S HR IN 140-150s, SBP 80s-90s, RECIEVED VORB TO GIVE ADENOSINE 6 MG NOW. DOSE GIVEN. MOST RECENT HR 118, BP 103/74.
--- NOTE | 2018-12-17 09:15 | NUR ---
CALLED AND GAVE REPORT VIA TELEPHONE TO JHON WOOD IN CCU. TRANSFERED PT VIA BED TO CCU TO ROOM 127 AT 0914.
--- NOTE | 2018-12-17 09:19 | NUR ---
63 YR OLD MALE PATIENT ADMITTED TO CCU FROM [facility] WITH DX OF SVT/ABD PAIN/HYPOTENSION. PATIENT RECIEVED ADENOCARD 6 MG AT 0824 AND HE SVT CONVERTED TO ST. UPON ADMIT TO CCU PATIENT IS ALERT, ORIENTED,COOPERATIVE. DENIES CHEST PAIN OR ABD PAIN . OSTOMY BAG IN PLACE. SMALL AMOUNT OF STOOL NOTED IN OSTOMY. SCD'S ON. DENEIS HEAD. STATES HE FEELS ABOUT THE SAME HE DID YESTERDAY. FRED OZUNA. REMAINS IN ISOLATION DUE TO C-DIFF.
--- NOTE | 2018-12-17 09:40 | NUR ---
TOOK BREAKFAST POOR. PERIODS OF NAUSEA. BELCHING FREQUENTLY. ENSURE GIVEN. DR. SALAS HERE TO SEE PATIENT.
--- NOTE | 2018-12-17 10:10 | NUR ---
BOLUS LR HUNG. PATIENT IS TO RECIEVE 500 ML OF LR OVER ONE HOUR. VANCO CONTINUE TO INFUSE. CONTINUE TO C/O INTERMITTENT ABD CRAMPING. HAS PERIODS OF HICCUPS.
--- NOTE | 2018-12-17 11:15 | NUR ---
JARRODTASOUND HERE TO VIEW ABD FLUID. RADIOLOGIST SAID HE WILL TALK TO DR. MAZA R/T DOING A PARCENTESIS OR NOT. PATIENT IS AWARE.
--- NOTE | 2018-12-17 12:30 | NUR ---
AMBULATED IN HALLWAY ACCOMPANY BY RN. TOLERATED AMBULATION WELL. C/O SLIGHT DIZZINESS, C/O MILD SHORTNESS OF BREATH. TO CHAIR FOR LUNCH.
--- NOTE | 2018-12-17 13:15 | NUR ---
TOOK LUNCH POOR. BACK TO BED.
--- NOTE | 2018-12-17 14:19 | NUR ---
NAPPING. NO DISTRESS NOTED.
--- NOTE | 2018-12-17 14:39 | NUR ---
U/S TECH IN ROOM TO PREP PATIENT FOR PARACENTESIS. RADIOLOGIST ON HIS WAY TO PERFORM PROCEDURE.
--- NOTE | 2018-12-17 14:50 | NUR ---
radiologist HERE TO DO US GUIDED PARACENTESIS. PATIENT IS RESTFUL.
--- NOTE | 2018-12-17 15:10 | NUR ---
500 ML ABD FLUID OBTAINED. SPEC SENT TO LAB. PATIENT TOLERATED WELL.
--- NOTE | 2018-12-17 15:45 | NUR ---
TO XRAY FOR 2 VIEW CHEST. ATIYA AND RN WITH PATIENT.
--- NOTE | 2018-12-17 15:55 | NUR ---
RETURNED TO CCU. TOLERAT XRAY WELL. PATINET ATTEMPTED TO VOID, UNABLE. HAS VOIDED X 1 TODAY. WILL BLADDER SCAN.
--- NOTE | 2018-12-17 16:00 | NUR ---
BLADDER SCAN DONE. >525 WAS VALUE. WILL NOTIFY MD. PATIENT DENIES NEED TO VOID.
--- NOTE | 2018-12-17 16:10 | NUR ---
C/O NAUSEA. ZOFRAN 4 MG IV GIVEN.
--- NOTE | 2018-12-17 16:20 | NUR ---
PER REQUEST OF JENNY ANDERSON RN, FOR PT AND SHE REQUESTED THAT WE HELP GET THE ORDER FOR THE TUBE FEEDINGS AND SUPPLIES TO BE STOPPED DR CALI PULLED THAT TUBE. [facility]--[phone], I CALLED AND TOLD THEM WE NEEDED TO CANCEL THAT ORDER AND THEY STATED IT WAS CANCELED EARLIER TODAY BY THE PT .
--- NOTE | 2018-12-17 16:30 | NUR ---
GENTILE CATH PLACED FOR RETURN OF 310 ML OF DARK PATRICIA UINE. URINE SENT TO LAB.
--- NOTE | 2018-12-17 18:30 | NUR ---
NOTIFIED OF DECREASED U/O. ORDERS RECIEVED TO INFUSE 500 ML LR OVER 1 HR, AFTER BOLUS IVF TO D5LR AT 75 ML/HR. OTHER ORDEREDS RECIEVED.
--- NOTE | 2018-12-17 19:00 | NUR ---
DR. CASTAÑEDA HERE REVIEW PATIENT STATUS. ORDES RECIEVED TO DO CULT ON ABD FLUID. REPORT TO NEXT SHIFT. HAS BEEN HAVING FREQUENT PERIODS OF HICCUPS.
--- NOTE | 2018-12-17 20:33 | NUR ---
IN TO ASESS PT AT 1999. STATES IS FEELING HUNGRY, PT MISSED DINNER AND IS CRAVING A HMBURGER. HAMBUGER AND FRIES OBTAINED AND PT EATING NOW. DOES HAVE EPISODES OF HICCUPS AND BELCHING. COLOSTOMY STOMA IS PINK AND DRAINING SMALL AMT GREEN STOOL. URINE IS MORE YELLOW IN COLOR NOW BUT STILL SMALL AMT. HR GRADUALYY INCREASING TO 120'S WILL WATCH AND SEE IF IT DECREASES AFTER PT EATS.
--- NOTE | 2018-12-17 21:14 | NUR ---
HR NOW 80-90'S, SR. ATE ABOUT 3/4 OF SMALL HAMBURGER AND SOME GUAMANIAN FIRES. NO C/O NAUSEA AT THIS TIME. WATCHING TV.
--- NOTE | 2018-12-17 22:21 | NUR ---
SLEEPING, HAS HICCUPS IN SLEEP.
--- NOTE | 2018-12-18 01:12 | NUR ---
AWAKENED FOR ASSESSMENT. PT C/O ABD PAIN AND NAUSEA AFTER MOVING SELF UP IN BED. GIVEN 4MG ZOFRAN IV AND THEN 5MG OXYCODONE PO. NO OTHER CHANGE AT THIS TIME.
--- NOTE | 2018-12-18 05:17 | NUR ---
AWAKE, HAS BEEN SLEEPING WELL. REPOSITIONED IN BED. NO STOOL IN COLOSTOMY.
--- NOTE | 2018-12-18 06:04 | NUR ---
SLEEPING AT THIS TIME.
--- NOTE | 2018-12-18 06:51 | NUR ---
PT CALLED AND C/O BACK PAIN, GIVEN 5MG OXYCODONE PO. PT HAS NOT CHANGED POSITION DURING NIGHT AND DECLINES TO DO SO OR GET UP IN CHAIR. PT BECAME NAUSEATED WHILE OBTAINING PAIN MED, NOW GIVEN 4MG ZOFRAN IV.
--- NOTE | 2018-12-18 08:15 | NUR ---
pt RESTING WITH EYES CLOSED, RESPIRATIONS REGULAR AND UNLABORED. WHITEBOARD UPDATED. pt WOKE EASILY. ORIENTED X4. COMPLAINED OF BACK PAIN 12/23. BURPING AND "A LITTLE NAUSEA". ENCOURAGED AMBULATION. pt WILL CONSIDER. ASSESSMENT DONE. MEDICATIONS GIVEN (SEE MAR). PROVIDED FRESH WATER. BREAKFAST ORDERED. CALL LIGHT WITHIN REACH.
--- NOTE | 2018-12-18 08:53 | NUR ---
LAB IN TO DRAW
--- NOTE | 2018-12-18 10:38 | NUR ---
DAVI ARRIVED FROM PHARMACY, HUNG WITH NEW BAG OF FLUIDS (SEE MAR). pt RESTING WITH EYES CLOSED, RESPIRATIONS REGULAR AND UNLABORED. CALL LIGHT WITHIN REACH.
--- NOTE | 2018-12-18 11:07 | NUR ---
MD IN ROOM. pt STATED HE DID NOT EAT BREAKFAST DUE TO NAUSEA, DENIED NAUSEA AT THIS TIME. COMPLAINED OF FEELING BLOATED AND HICCUPS. NO REQUESTS AT THIS TIME. CALL LIGHT WITHIN REACH.
--- NOTE | 2018-12-18 11:53 | NUR ---
JENNY RN IN ROOM TO SHAVE AND ASSIST pt TO WASH UP. CARES DONE. pt SITTING IN CHAIR WATCHING TV. LUNCH ORDERED. ASSESSMENT DONE. pt HR INCREASED TO 120'S DURING AMBULATION TO CHAIR. CALL LIGHT WITHIN REACH. NO REQUESTS AT THIS TIME.
--- NOTE | 2018-12-18 12:50 | NUR ---
LINENS CHANGED. IN ROOM. pt RESTING IN CHAIR WITH EYES CLOSED, SHOWING NO INTEREST IN FOOD. DR SALAS IN ROOM.
--- NOTE | 2018-12-18 14:06 | NUR ---
DR SALAS VISITED WITH ME ABOUT HIS PERCEPTION OF PTS' VIEW OF HIS CONDITION. HE IS CONCERNED THAT HE IS IN DENIAL AND SEEMS TO BE UNWILLING TO TALK ABOUT THE EXTENT OF HIS WORSENING CONDITION. NO POLST, REQUESTED I TRY TO VISIT WITH PT AND SEE IF WE CAN ASSIST HIM IN HIS MED PLAN. PT WAS ALERT, EYES WOULD CLOSE MOMENTARILY AND SOMETIMES GIVE A DELAYED RESPONSE, BUT ON POINT. HE BELIEVES HIS OUTLOOK IS "GOOD" NOT GREAT FOR RECOVERY FROM COLON CANCER, BUT SEEMS UNABLE TO REALLY TALK ABOUT WHERE HE REALLY IS AT MEDICALLY. PT REQUESTED PRAYER, DOUGLAS CAME IN DURING PRAYER. WILL CONTINUE TO FOLLOW NEEDED
--- NOTE | 2018-12-18 14:24 | NUR ---
MEDICATION GIVEN (SEE MAR). pt REQUESTED CHOCOLATE ENSURE. REFUSED LUNCH AT THIS TIME. CALL LIGHT WITHIN REACH.
--- NOTE | 2018-12-18 15:12 | NUR ---
PATIENT REMAINS ON A REGULAR DIET WITH ONLY BITES TAKEN BY MOUTH. PATIENT REFUSING MEALS MOSTLY DUE TO NAUSEA. PATIENT ALSO DOES NOT WANT A DOBHOFF FEEDING TUBE. ENSURE ENLIVE SUPPLEMENTS ARE ALWAYS AVAILABLE. JHON GUERRA, MENTIONED ADDING REGLAN TO HIS MEDICATIONS TO SEE IF THAT WILL HELP GUT MOTILITY, CAUSING LESS NAUSEA. WILL CONTINUE TO MONITOR.
--- NOTE | 2018-12-18 16:24 | NUR ---
ASSESSMENT DONE. GAVE MED (SEE MAR). pt STATES PAIN "IT'S OKAY". GENTILE EMPTIED. REFUSED TO ORDER DINNER AT THIS TIME. WILL CHECK BACK. NO REQUESTS AT THIS TIME. CALL LIGHT WITHIN REACH.
--- NOTE | 2018-12-18 17:22 | NUR ---
CALL LIGHT ON pt REPORTED 7/10 PAIN IN HIS ABD, "IT'S IN THE MUSCLE". PRN MEDICATION GIVEN (SEE MAR). DINNER ORDERED. CALL LIGHT WITHIN REACH.
--- NOTE | 2018-12-18 18:09 | NUR ---
pt HR 141. REPORTED FEELING "A LITTLE LIGHTHEADED AND MY HEART IS RACING". REPORTED SOB "BUT JUST NORMAL FOR SITTING UP AND HICCUPS". MD NOTIFED. MEDICATION GIVEN PER ORDER (SEE MAR). HR 120. WILL CONTINUE TO MONITOR. pt REPORTED "MY HEART ISN'T RACING FAST".
--- NOTE | 2018-12-18 18:41 | NUR ---
BLOOD PRESSURE 84/58, HR 131. NOTIFIED. NO NEW ORDERS AT THIS TIME.
--- NOTE | 2018-12-18 19:45 | NUR ---
Patient is restful with eyes closed, breathing is even and unlabored, HR and BP WNL, FLACC score 0. IVF infusing per order, call light within reach.
--- NOTE | 2018-12-18 20:40 | NUR ---
Dr. Perkins in to check on patient, updated Dr. Perkins about vitals and urine output after 500 cc bolus infused.
--- NOTE | 2018-12-18 20:50 | NUR ---
Assessment done, patient is alert and oriented x4. HR well controlled, BP WNL, map >65. Peripheral pulses well felt in all extremities. Lungs are clear in all flores, SpO2 98% on 3L O2, titrated to room air, SpO2 now 95%, no SOB, breathing is even and unlabored. Ascites noted, abodmen is firm, tender to palpation, bowel tones active. Colostomy noted, small amount of brown stool noted in bag, patient reports poor intake, does not want to eat dinner at bedside, encouraged as much nutrition as patient can tolerate. Kwong in place, draining yellow urine. IV sites x2 intact, flushing well, IVF infusing per order. Patient denies pain, denies nausea. Has no needs at this time. Call light within reach.
--- NOTE | 2018-12-18 21:14 | NUR ---
Patient reports 7/10 pain in "mid back," prn 5mg PO oxycodone given. Patient reports that the oxycodone has been controlling pain effectively. Denies further needs, call light within reach.
--- NOTE | 2018-12-18 21:48 | NUR ---
Patient requesting sleep aid, notified Dr. Perkins, 1mg PO melatonin order x1.
--- NOTE | 2018-12-18 22:29 | NUR ---
Patient resting. No complaints or needs at this time. Call light in reach
--- NOTE | 2018-12-18 23:17 | NUR ---
Patient is restful with eyes closed, breathing is even and unlabored, vitals WNL, HR 101. IVF infusing per order, call light within reach.
--- NOTE | 2018-12-19 00:20 | NUR ---
Assessment done, no acute changes from previous. Patient reports mid back pain has had minimal improvement, with assistance from JHON Jackson, repositioned for comfort, educated patient that if repositioning has not improved pain, will administer PRN pain medication, patient is agreable. Denies further needs at this time. Colostomy has minimal output, fish remains intact, putting out QS urine. IVF infusing per order, call light within reach.
--- NOTE | 2018-12-19 01:39 | NUR ---
Patient is restful with eyes closed, breathing is even and unlabored, vitals WNL, FLACC 0. Call light within reach.
--- NOTE | 2018-12-19 01:45 | NUR ---
Patient reports 8/10 pain in mid back radiating to left side, 5mg PO PRN oxycodone given, also provided warm blanket to painful area, patient states "that makes the pain feel better." Denies further, call light within reach.
--- NOTE | 2018-12-19 02:47 | NUR ---
Patient restful with eyes closed, FLACC score 0, vitals WNL, call light within reach.
--- NOTE | 2018-12-19 03:45 | NUR ---
Patient is restful with eyes closed, vitals WNL, fish continues to have QS urine output. Call light within reach.
--- NOTE | 2018-12-19 05:00 | NUR ---
Assessment done, no acute changes from previous, FLACC score of 1, patient does not mention pain, repositioned in bed, states that it feels better. Inquired about patient's nutrition status, reports that he has an appetite, but does not like the food from the hospital. Educated about the importance of nutrition, patient states that he understands. Denies needs at this time, vitals WNL, call light within reach.
--- NOTE | 2018-12-19 08:00 | NUR ---
Assessment completed see flowsheet. Pt awake in bed VSS on RA. Complaining of Nausea and ABD pain. Medicated for both. No other needs voiced at this time. Will order breakfast and continue to monitor.
--- NOTE | 2018-12-19 10:22 | NUR ---
Pt finished up with breakfast. Still with poor appetite. Pt states pain and nausea much better. No other needs voiced will continue to monitor
--- NOTE | 2018-12-19 12:00 | NUR ---
Assessment unchanged from previous. pt medicated for abd pain and nausea. VSS. Pt has met with multiple people today discussing code status and the next steps forward. Answering all questions as they arise. Will continue to monitor
--- NOTE | 2018-12-19 14:35 | NUR ---
Pt talking with and hospital staff about code status.
--- NOTE | 2018-12-19 15:56 | NUR ---
RN MARVIN WOO VISITED WITH ME REGARDING PTS' STRUGGLE TO MAKE END OF LIFE ISSUE. I VISITED WITH PT AND HIS DOUGLAS. I WAS VERY HONEST WITH PT ABOUT MY PERCEPTION OF HIS LACK OF PREPARATION AND INABILITY TO MAKE DECISIONS THAT WILL CARE FOR HIS FAMILY WHEN HE PASSES. HE MENTIONED THAT HE DOESNOT WANT TO PUT HIS FAMILY THROUGH WHAT HE EXPERIENCED WITH THE PASSING OF HIS MOTHER.YET WHAT HE DESIRES AT THE PRESENT IS EXACTLY THE SITUATION HE IS PLACING HIS FAMILY IN THAT HE SAYS HE WANTS TO AVOID. GAVE THEM PLANNING GUIDE TO HELP KNOW IN WRITING WHAT SOME OF THE MAIN DECISIONS ARE. HAD PRAYER AND MENTIONED THAT I WILL CHECK IN TOMORROW. DOUGLAS THANKED ME AND PT DID WELL. GOD BLESS THEM
--- NOTE | 2018-12-19 16:00 | NUR ---
Assessment unchanged from previous. pt awake in bed visiting with . Medicated for pain and nausea. VSS no other needs voiced at this time. Will continue to monitor
--- NOTE | 2018-12-19 16:18 | NUR ---
DR SALAS VOICED A CONCERN TO Rich INIGUEZ AGRICULTURE INSPECTOR LONE LEAD LINEMAN ABOUT THIS PT, THINKING THE PT IS NOT UNDERSTANDING OR DENYING THE POOR PROGNOSIS OF HIS DISEASE PROCESS AND ASKED TO SEE IF SOMETHING MORE COULD BE DONE TO EXPLAIN THIS TO THE PT. HAVE ETHICS MEETING OR SOMEONE TALK WITH HIM REGARDING THIS. DEPT LONE LEAD LINEMAN AND MYSELF DC CLINICAL ASSESSMENT MANAGER TALKED WITH PT AND HIS REGARDING WHAT HIS WANTS ARE WITH THE GRAVITY OF THE DIAGNOSIS. PT STATES HE WANTS ATTEMPT AT CPR AND IF THAT DOESN'T WORK HE WANTS THE DR TO JUST LET HIM GO. IS ABLE TO VERBALIZE TO THE PT THAT THAT LEAVES HER, IF HE COMES BACK WITH CPR AND IS BRAIN INJURED, TO MAKE THE DECISION TO TURN OFF THE MACHINES. PT STATES HE WANTS THAT EFFORT MADE IN CASE HE COULD GET BETTER. WE EXPLAINED TO PT THAT WITHOUT NUTRITION HE IS NOT GOING TO SURVIVE, HE STATES HE HAS AN APETITED BUT CAN'T EAT BECAUSE OF THE FLUID IN HIS ABD. TALKED WITH PT THAT DR SALAS HAD SAID HE IS NOT GOING TO DRAIN THAT FLUID OFF IT IS MAKING IT WORSE. PT STATES HE WANTS TO THINK ABOUT IT. I FEEL THE PT HAS A LITTLE BETTER UNDERSTANDING AND IS AT LEAST SPEAKING/THINKING ABOUT HIS END OF LIFE DECISIONS.
--- NOTE | 2018-12-19 16:43 | NUR ---
Pt shaved, washed up and set up for dinner. Pt states he feels much better.
--- NOTE | 2018-12-19 18:13 | NUR ---
Pt resting in bed no complaints at this time. Pt still with poor appetite. U/O sufficient for shift. Still awaiting pts decision on code status.
--- NOTE | 2018-12-19 19:20 | NUR ---
Patient is restful with eyes closed, breathing is even and unlabored, FLACC score 0, vitals WNL, call light within reach.
--- NOTE | 2018-12-19 20:12 | NUR ---
Patient reports 7/10 pain in abdomen and reports nausea. 5mg PO oxycodone given and schedule 10mg IV metoclopramide given. Assessment done, alert and oriented x4, HR and BP WNL, peripheral pulses well felt in all extremities, no peripheral edema noted. Lungs are clear throughout, remains on room air. Abdominal ascites noted, tender to palpation, bowel tones hypoactive, colostomy bag has minimal stool. Kwong present, draining concentrated QS urine. IV sites intact x2, flush well, IVF and antibiotics infusing per order. Patient denies further needs. Call light within reach.
--- NOTE | 2018-12-19 21:03 | NUR ---
Patient reports feeling SOB, patient states that he has been feeling SOB throughout the day. Abdomenal ascites noted to be worse than previous shift, SpO2 95% on room air, RR 14 to 18, no signs of distress. Repositioned for comfort with help from JHON Barker. Patient states that repositioning feels better, denies further needs. Call light within reach, IVF infusing per order.
--- NOTE | 2018-12-19 21:45 | NUR ---
Evening medications administered, patient states that pain in abdomen has improved, denies nausea at this time. Denies needs, call light within reach.
--- NOTE | 2018-12-19 22:30 | NUR ---
Restful with eyes closed, vitals WNL, FLACC score 0, breathing is even and unlabored. Call light within reach.
--- NOTE | 2018-12-19 23:42 | NUR ---
Notified Dr. Perkins that patient's BP now 81/49 (56), confirmed with manual BP. Dr. Perkins sates that he will DC PO metoprolol and put in order for 5mg PO midodrine.
--- NOTE | 2018-12-19 23:56 | NUR ---
PO midodrine administered per order, assessment done, no acute changes from previous. with BP of 81/49 (56), peripheral pulses are well felt in all extremties, urine output QS. Patient denies needs for pain medication, denies nausea. No needs at this time. Call light within reach, IVF infusing per order.
--- NOTE | 2018-12-20 00:45 | NUR ---
PT COMPLAINED OF PRESSURE IN HIS ABD AND NAUSEA. 8MG ZOFRAN IV WAS GIVEN. NO NEW CONCERNS NOTED AT THIS TIME.
--- NOTE | 2018-12-20 01:49 | NUR ---
ASSISTED PT BACK TO BED FROM [facility]. NATURALLY THERE WAS NO BM TO BE HAD. PT ALSO AGREED TO A CENTRAL LINE IN ORDER TO START TPN. WILL LET DAY SHIFT RN KNOW IN ORDER FOR CONSENT TO BE SIGNED.
--- NOTE | 2018-12-20 02:23 | NUR ---
Notified Dr. Perkins that patient's BP has become hypotensive again at 81/50 (57). Also updated that urine output has been QS. 5mg PO midodrine once ordered.
--- NOTE | 2018-12-20 02:54 | NUR ---
Patient reports 9/10 pain in abdomen and "severe" nausea, PRN oxycodone and phenergan given per emar. Also repositioned patient, denies further needs. Call light within reach.
--- NOTE | 2018-12-20 04:53 | NUR ---
Restful with eyes closed, breathing is even and unlabored, FLACC score 0. Call light within reach.
--- NOTE | 2018-12-20 06:00 | NUR ---
Patient has expressed concerns about spiritual welfare and states "I just want to know if I'm going to heaven or not." Sat with patient and discussed current illness and encouraged to ask questions. Also told patient that pastoral care will be contacted to talk with patient, patient agreed. Denies further needs at this time.
--- NOTE | 2018-12-20 06:34 | NUR ---
Notified pastoral care that patient is requesting to speak with them.
--- NOTE | 2018-12-20 07:59 | NUR ---
Assessment completed see flowsheet. pt awake in bed not wanting to order breakfast. Seems a little confused this morning but easily able to reorient. No needs voiced at this time. Will continue to monitor
--- NOTE | 2018-12-20 08:16 | NUR ---
Dr. Perkins notified of HR 120-128 No new orders received at this time. Dr. Perkins is coming to see pt.
--- NOTE | 2018-12-20 09:00 | NUR ---
Dr. Perkins and financial planner are in to see pt. Pts is present in the room.
--- NOTE | 2018-12-20 09:00 | NUR ---
CARE CONFERENCE MET WITH PATIENT, DOUGLAS , AND DR CASTAÑEDA IN ROOM. DR CASTAÑEDA DISCUSSED PATIENTS DIAGNOSIS, PROGNOSIS, AND TEST RESULTS. PATIENT AND BOTH ASKED QUESTIONS. PATIENT SPOKE AT LENGTH OF HIS DECISION THAT HE NO LONGER WANTS TO PROLONG HIS SUFFERING. HE SPOKE OF HIS NOT BEING ABLE TO EAT ENOUGH AND HIS PAIN AND SHORTNESS OF BREATH. THEY DISCUSSED THEIR UNDERSTANDING THAT HIS SITUATION IS DIRE AND FULL RECOVERY IS NOT WHAT THEY EXPECT. IN FACT, PATIENT STATES HE REALIZES HE IS DYING, ASKING IF WE KNOW WHEN THAT COULD HAPPEN. DR CASTAÑEDA EXPLAINED WE HAVE NO SURE ANSWER FOR THAT. PATIENTS FIRST DESIRE IS TO RETURN HOME AND BE AT HOME COMFORTABLE POSSIBLE FOR WHAT TIME HE HAS LEFT, BUT HE IS CONCERNED TO "DUMP THAT ON HER" POINTING TO HIS . DOUGLAS ASSURRED HIM THAT IS WHAT SHE WANTS FOR HIM, ALSO. WE DISCUSSED [facility] COU[facility] BECOME INVOLVED AND HELP WITH THIS. WE DISCUSSED THAT HE WILL NEED 24/7 CARE AND HOSPICE CANNOT PROVIDE THAT, BUT THERE ARE PRIVATE CAREGIVERS TO HIRE, OR FAMILY, FRIENDS CAN STEP IN. STATES SHE WAS A CAREGIVER IN THE PAST FOR [facility], SO SHE UNDERSTANDS HE WILL PROBABLY BE BEDBOUND SOON AND SHE FEELS THEY CAN DO THIS AT HOME WITH SOME SMALL AMOUNT OF SUPPORT. PATIENT STATES HE WOULD LIKE TO TALK WITH PASTOR NUNO FROM [facility]. THEY WANT TO GO AHEAD WITH COMFORT CARE. HE UNDERSTANDS THAT MEANS NO ANTIBIOTICS, IVF, ETC. AND ONLY TREATING SYMPTOMS SO HE IS NOT PAINFUL, SOB, ETC. HE FULLY UNDERSTANDS THAT DISCONTINUING TREATMENT MAY HASTEN HIS , AND HE WANTS TO MOVE FORWARD WITH CONTROLLING SYMPTOMS FOR QUALITY OF LIFE WHILE HE STILL HAS IT, ONLY. THEY AGREED I CAN CALL HOSPICE FROM [facility] (HE IS CURRENTLY GETTING HOME HEALTH THROUGH THEM) AND ARRANGE FOR THEM TO CONTACT DOUGLAS ON HER CELL PHONE TO DISCUSS EQUIPMENT, ETC. ALL QUESTIONS WERE ANSWERED.
--- NOTE | 2018-12-20 10:15 | NUR ---
Pt medicated for pain and fentanyl patch applied to Right shoulder. Pt is now a comfort measures only. Pt taken off the heart monitor and IV fluids stopped. Explained pain and anxiety meds with pt and . All questions answered at this time. Will continue to monitor
--- NOTE | 2018-12-20 12:13 | NUR ---
Pt repositioned in bed. States his pain and nausea are much better. No needs voiced at this time. Will continue to monitor
--- NOTE | 2018-12-20 12:27 | NUR ---
I RECEIVED A CALL FROM CCU RN KATHY INFORMING ME THAT PT WANTED TO SPEAK WITH ME THIS AM. WHEN I CHECKED ON PT, HE ALERTED ME TO THE FACT THAT HE HAD MADE END OF LIFE ISSUES-COMFORT MEASURES ONLY AND WILL TRY TO GO HOME ON HOSPICE. PT ADMITTED THAT HE HAS BEEN STRUGGLING WITH HIS SPIRITUAL CONDITION FOR SOME TIME, WAS BAPTIZED, BUT STILL ADMITTING HE HAS MADE MISTAKES. PRAYED WITH PT HE MAY HAVE BEEN STRUGGLING WITH END OF LIFE ISSUES BECAUSE OF GUILT. NOW RELEASED, FEELING RELIEVED. ALSO HAD A LENGHTY VISIT WITH DOUGLAS. SHE NEEDED TO VENT AND REAFFIRM HER COMMITMENT. GAVE BLESSING, WILL FOLLOW NEEDED
--- NOTE | 2018-12-20 12:49 | NUR ---
SPOKE WITH FABIAN FROM [facility]. DISCUSSED PATIENTS DESIRE FOR SERVICES. CLINICALS WILL BE SENT PER REQUEST. SHE STATES SHE WILL ALSO SPEAK WITH THEIR HOME HEALTH DEPARTMENT AND LET THEM KNOW THAT PATIENT WILL NOT BE RETURNING TO HOME HEALTH SERVICES.
--- NOTE | 2018-12-20 13:22 | NUR ---
1310: PT ARRIVED VIA BED TRANSFER FROM CCU. HE STATES HIS PAIN IS AN 8/10, SEE EMAR. HR 142, TEMP 98.6, 93% SAT, 95/70 BP, RR 20. PT ORIENTED TO HIS ROOM TO INCLUDE THE USE OF HIS CALL SQUIRES. PT DECLINED TO BE REPOSITIONED AT THIS TIME. ORAL CARE GIVEN WHICH HE STATES THAT IT "FEELS GOOD". PT DECLINES A WARM BLANKET AT THIS TIME.
--- NOTE | 2018-12-20 13:35 | NUR ---
PT'S LUISA INTO THE ROOM AT THIS TIME. COMFORT CARE WAS DISCUSSED WITH HER WELL HER BEING ORIENTED TO THE ROOM. END OF LIFE ISSUES WERE DISCUSSED WITH QUESTIONS BEING ANSWERED.
--- NOTE | 2018-12-20 13:45 | NUR ---
FAXED CLINICALS TO [facility] [phone]. FAX CONFIRMATION RECEIVED AT 1325PM.
--- NOTE | 2018-12-20 14:19 | NUR ---
PT STATES HIS PAIN LEVEL IS NOW "ACCEPTABLE". HE WAS ENCOUARGED TO NOTIFIY ME IF HIS PAIN STARTS TO INCREASE.
--- NOTE | 2018-12-20 15:00 | NUR ---
RECEIVED MESSAGE FROM FABIAN AT [facility]. SHE STATES THEY HAVE REVIEWED CHART AND PATIENT CAN BE ADMITTING ON SUNDAY. SHE STATES SHE HAS SPOKEN TO PATIENTS , THEY WILL DELIVER EQUIPMENT ON SUNDAY MORNING.
--- NOTE | 2018-12-20 15:27 | NUR ---
PT COMPLAINT OF PAIN 12/23, GIVEN 5MG SL MORPHINE. PT DENIES OTHER NEEDS AT THIS TIME. AT BEDSIDE.
--- NOTE | 2018-12-20 16:27 | NUR ---
PT RATES HIS ABD PAIN AT A 4/10 AND STATES HE WOULD LIKE SOMETHING FOR IT AND WAS MEDICATED ORDERED. PT DENIES ANY ANXIETY OR NAUSEA AT THIS TIME. PT REPOSITIONED, HE DECLINES ADDITIONAL MOUTH SWABS.
--- NOTE | 2018-12-20 16:37 | NUR ---
RIGHT HAND AND RIGHT FA IV SITES DC'D PER THE PT'S 'S REQUEST. A LEFT FA IV SITE REMAINS.
--- NOTE | 2018-12-20 18:25 | NUR ---
PT STATES HIS PAIN IS GOOD AT THIS TIME. HE DECLINES TO BE TURNED OR DOING ORAL CARE AT THIS TIME.
--- NOTE | 2018-12-20 18:48 | NUR ---
Pt sleeping at this time.
--- NOTE | 2018-12-20 19:10 | NUR ---
BEDSIDE REPORT RECEIVED FROM OFFGOING RN. PT RESTING IN BED WITH AT BEDSIDE. BOTH DENY NEEDS AT THIS TIME. CALL LIGHT IN REACH.
--- NOTE | 2018-12-20 21:47 | NUR ---
PT ASSESSMENT COMPLETE. PT STATES THAT PAIN IS WELL CONTROLLED AT THIS TIME. DENIES NAUSEA OR SOB. PT HAVING HICCUPS, STATES THAT THEY ARE NONPAINFUL. LUNG SOUNDS DIM IN BILATERAL BASES. PT DENIES COUGH. ABDOMEN SEVERLY DISTENDED. PT REPORTS SLIGHT TENDERNESS ON PALPATION. BT'S HYPOACTIVE. GENTILE CATH DRAINING CONCENTRATED YELLOW URINE. COLOSTOMY BAG EMPTY AT THIS TIME. SCAB PRESENT X2 ON ABD, BLISTER PRESENT TO RUQ. PT STATES THAT HE IS HUNGRY, HOWEVER UNABLE TO INDENTIFY ANYTHING THAT HE WOULD LIKE TO EAT. DISCUSSED WITH PT AND FAMILY WHETHER THEY WOULD LIKE VITAL SIGNS OBTAINED. FAMILY DECLINES BUT PT STATES HE WOULD LIKE THEM TAKEN. PRESS TENDER OFFERS TO REPOSITION PT, BUT PT DECLINES STATES THAT HE IS COMFORTABLE. PT ALSO DECLINES ORAL CARE, WOULD LIKE LIP BLAM, PROVIDED. PT DENIES FURTHER NEEDS AT THIS TIME. CALL LIGHT IN REACH.
--- NOTE | 2018-12-20 21:59 | NUR ---
CHARGE NURSE ROUNDING NOTE: PT ON COMFORT CARE, ON ROOM AIR, RESTING,EYES CLOSED. F/C PATENT. CALL LIGHT AT BEDSIDE. INROOM
--- NOTE | 2018-12-20 23:32 | NUR ---
PT RESTING IN BED AWAKE, WATCHING TV. PT'S WALKED OTHER FAMILY MEMBERS OUT. PT DENIES NEEDS AT THIS TIME. STATES THAT PAIN IS A 3/10, AND THIS IS COMFORTABLE. PT AGREES TO CALL FOR NEEDS. CALL LIGHT IN REACH.
--- NOTE | 2018-12-21 02:00 | NUR ---
PT UTILIZES CALL LIGHT, REPORTS PAIN. RATES PAIN 7/10 TO ABD. PRN MS SL, 5 MG, ADMINISTERED. PT DENIES FURTHER NEEDS AT THIS TIME, DECLINES ORAL CARE OR TO BE TURNED. CALL LIGHT IN REACH. SLEEPING ON COUCH.
--- NOTE | 2018-12-21 03:45 | NUR ---
PT RESTING IN BED AWAKE. STATES THAT HE HAS BEEN SLEEPING OFF AND ON. PT RATES PAIN 4/10, DENIES NEED FOR ADDITIONAL PAIN MEDICATION AT THIS TIME. PT REQUESTS TO HAVE LOTION AT THE BEDSIDE, DENIES ASSISTANCE TO APPLY LOTION. PT DENIES FURTHER NEEDS AT THIS TIME. SLEEPING AT BEDSIDE. CALL LIGHT WITHIN REACH.
--- NOTE | 2018-12-21 04:10 | NUR ---
PT UTILIZES CALL LIGHT, REQUESTS PRN PAIN MEDICATION. PT RATES PAIN 7/10 TO ABD. PRN SL MS, 5 MG, ADMINISTERED. PT DENIES FURTHER NEEDS. CALL LIGHT IN REACH.
--- NOTE | 2018-12-21 04:59 | NUR ---
PT AWAKE OFF AND ON THROUGHOUT THE NIGHT. PT ALERT AND ORIENTED. SLOW TO RESPOND TO QUESTSIONS. SL MS X 2 FOR PAIN CONTROL. NO NAUSEA OR SOB THIS SHIFT. COLOSTOMY WITH NO OUTPUT. GENTILE CATH DRAINING CONCENTRATED URINE. ASCITES, ABD VERY DISTENDED. BT'S HYPOACTIVE. BLISTER TO RUQ. SCABS TO ABD X2. PT HAS DECLINED TURNING. MOUTH SWABS AND LIP BALM AT BEDSIDE, PT INDEPENDENT IN ORAL CARE. PT'S STAYED OVERNIGHT WITH PT.
--- NOTE | 2018-12-21 06:26 | NUR ---
PT RESTING IN BED WITH EYES CLOSED. RESPIRATIONS EVEN AND UNLABORED. PT DOES NOT WAKE WHILE GROUP ACTIVITIES AIDE EMPTIES GENTILE CATH. PT'S SLEEPING ON COUCH. CALL LIGHT WITHIN PT REACH.
--- NOTE | 2018-12-21 07:29 | NUR ---
0705: BEDSIDE REPORT RECEIVED, PT RESTING IN BED AND STATES HE IS DOING OKAY AT THIS TIME. CALL SQUIRES WITHIN REACH. 0725: PT CALLED AND STATES HE IS NOW HAVING PAIN RATED AT A 7/10, SEE EMAR.
--- NOTE | 2018-12-21 09:03 | NUR ---
PT STATES HIS PAIN IS A 7/10 AND WAS MEDICATED ORDERED. PT STATES HE HAS SOME SOB BUT THAT THE MORPHINE HAS BEEN HELPING. PT REQUESTED A SHOWER AND THE NURSE MIDWIFE IS GETTING HIM UP FOR IT AT THIS TIME.
--- NOTE | 2018-12-21 11:03 | NUR ---
The pt states he is doing "alright" and that the ativan that was given to him is "helping a little bit". He states that his pain is well controlled at this time.
--- NOTE | 2018-12-21 12:28 | NUR ---
Pt sleeping at this time.
--- NOTE | 2018-12-21 13:35 | NUR ---
Pt laying in bed and he states he is doing well and that he had a good nap. Pt requesting a to go for a walk with a SBA and with the use of a walker.
--- NOTE | 2018-12-21 13:51 | NUR ---
PATIENT WENT FOR A WALK, HE WALKED A LAP, HE WAS SOB WHEN WE RETURNED TO HIS ROOM, HE WANTED TO RELAX AND THIS CNA2 BROUGHT HIM HIS CHICKEN BROTH.
--- NOTE | 2018-12-21 14:32 | NUR ---
Pt resting in his bed visiting with his , he appears comfortable. Pt stated he is doing okay at this time and does not wish to have any pain medication at this time. Pt repositioned in bed.
--- NOTE | 2018-12-21 16:19 | NUR ---
Pt's present in the room and the pt is sleeping.
--- NOTE | 2018-12-21 17:13 | NUR ---
Pt states he has abd pain rated at 6 and has some anxiety. Pt medicated as ordered, see Emar.
--- NOTE | 2018-12-21 18:11 | NUR ---
PT LAYING IN HIS BED AND CONTINUES EATING HIS DINNER. HE STATES HE IS FEELING "MUCH BETTER" AND IS NOT IN THE NEED OF ANYTHING AT THIS TIME. PT DECLINES TO BE TURNED AT THIS TIME.
--- NOTE | 2018-12-21 19:13 | NUR ---
RECEIVED REPORT FROM JHON PALACIOS. pt RESTING IN BED, FAMILY AT BEDSIDE. NO REQUESTS AT THIS TIME. WHITEBOARD UPDATED. CALL LIGHT WITHIN REACH.
--- NOTE | 2018-12-21 20:03 | NUR ---
ASSESSMENT DONE. pt REQUESTED PAIN MEDICATION FOR 01/22 PAIN. PRN MED GIVEN (SEE MAR). DISCUSSED PLAN FOR NIGHT. NO FURTHER REQUESTS. CALL LIGHT WITHIN REACH.
--- NOTE | 2018-12-21 20:34 | NUR ---
V/S TAKEN PER PATIENT'S REQUEST.
--- NOTE | 2018-12-21 21:09 | NUR ---
OPTIMIZATION CONSULTANT ROUNDING NOTE. PT RESTING IN BED WATCHING TV. PT DENIES QUESTIONS OR CONCERNS. STATES THAT HIS CARE HAS BEEN GREAT. PT HAS NAUSEA OFF AND ON THROUGHOUT CONVERSATION, DENIES PRN FOR SUCH. EMESIS BAG IN REACH. PT DENIES FURTHER NEEDS. CALL LIGHT IN REACH.
--- NOTE | 2018-12-21 21:38 | NUR ---
PT UP TO AMBULATE DOWN THOMAS AND BACK TO ROOM WITH 1 PA AND FWW. PT TOLERATED WELL. REQUESTS BOTTLED WATER AND ENSURE. PROVIDED. PT DENIES FURTHER NEEDS AT THIS TIME. CALL LIGHT IN REACH.
--- NOTE | 2018-12-21 22:25 | NUR ---
pt REQUESTED PAIN MEDS AND ATIVAN. PRN MEDS GIVEN (SEE MAR). REPORTED PAIN 09/22. REHEATED FOOD PER REQUEST. NO FURTHER REQUESTS AT THIS TIME. CALL LIGHT WITHIN REACH.
--- NOTE | 2018-12-21 23:35 | NUR ---
ANSWERED CALL LIGHT. PATIENT ASKED FOR WARM BLANKET AND EMESES BASIN, PROVIDED. PATIENT REQUESTED FOR ANTI NAUSEA MEDICATION. PRIMARY RN NOTIFIED.
--- NOTE | 2018-12-21 23:47 | NUR ---
pt REQUESTING PRN NAUSEA MEDICATION AND PAIN MEDS. GIVEN (SEE MAR). NO FURTHER REQUESTS AT THIS TIME. CALL LIGHT WITHIN REACH.
--- NOTE | 2018-12-22 00:29 | NUR ---
PER SQL BI DEVELOPER pt REQUESTING MEDICATION FOR BLOATING. ROUNDED ON pt. RESTING WITH EYES CLOSED, RESPIRATIONS REGULAR AND UNLABORED. RATE = 18. DID NOT AWAKE TO QUIET VOICE. WILL CONTINUE TO MONITOR. CALL LIGHT WITHIN REACH.
--- NOTE | 2018-12-22 00:53 | NUR ---
pt AWAKE REQUESTED NAUSEA MEDICATIONS AND STATED "I FEEL REALLY BLOATED". PRN MEDICATION INFUSING. NO FURTHER REQUESTS AT THIS TIME. CALL LIGHT WITHIN REACH.
--- NOTE | 2018-12-22 01:26 | NUR ---
INFUSION COMPLETE. pt RESTING WITH EYES CLOSED, RESPIRATIONS REGULAR AND UNLABORED. RATE = 16. CALL LIGHT WITHIN REACH.
--- NOTE | 2018-12-22 03:50 | NUR ---
ROUNDED ON pt. RESTING WITH EYES CLOSED, MOANING. RESPIRATIONS REGULAR, RATE = 16. CALL LIGHT WITHIN REACH.
--- NOTE | 2018-12-22 05:22 | NUR ---
pt RESTED LAST PART OF SHIFT. PAIN CONTROLLED WITH PRN PAIN MEDS X3. ATIVAN X1. NAUSEA MEDS X2. SOME OUTPUT IN COLOSTOMY BAG. SBA. AMBULATED X1. IV SL. POOR APPETITE. USES CALL LIGHT APPROPRIATELY.
--- NOTE | 2018-12-22 05:32 | NUR ---
pt RESTING WITH EYES CLOSED, RESPIRATIONS REGULAR AND UNLABORED. RATE = 18. GENTILE EMPTIED. ROOM TIDIED. CALL LIGHT WITHIN REACH.
--- NOTE | 2018-12-22 07:22 | NUR ---
0710: Report recieved from Meghana FERREIRA. Pt sleeping at this time. Call quinn within reach.
--- NOTE | 2018-12-22 08:31 | NUR ---
PT DROWSY AT THIS TIME AND IS SLEEPING ON AND OFF. HE DENIES PAIN AT THIS TIME. HE DECLINES ORAL CARE AND TURNING RIGHT NOW. SCD'S ARE ON AND RUNNING REPORTED TO ME FROM MARGIN ANALYST THE PT REQUESTED THEM. CALL SQUIRES WITHIN REACH AND THE PT DENIES ANY NEEDS AT THIS POINT.
--- NOTE | 2018-12-22 09:57 | NUR ---
PT CONTINUES SLEEPIING AT THIS TIME.
--- NOTE | 2018-12-22 10:38 | NUR ---
Pt sleeping at this time.
--- NOTE | 2018-12-22 11:04 | NUR ---
PT CALLED AND STATED HE HAS SOME PAIN RATED AT A 6/10 FOR WHICH HE WOULD LIKE SOME PAIN MEDICATION. HE ALSO STATES HE NEEDS SOMETHING TO HELP HIM RELAX. PT MEDICATED ORDERED, SEE EMAR. PT REPOSITIONED IN THE BED AND HE WAS GIVEN A CUP OF COFFEE HE REQUESTED. PT DENIES THE NEED FOR ORAL CARE.
--- NOTE | 2018-12-22 13:45 | NUR ---
Pt states his pain level is good at this time. He declines the need for repositioning, he was given additional mouth swabs at this time. The pt is able to use the swabs without assistance. Pt denies the need for any other assistance at this time.
--- NOTE | 2018-12-22 15:18 | NUR ---
Pt sleeping at this time.
--- NOTE | 2018-12-22 15:49 | NUR ---
Pt sleeping at this time.
--- NOTE | 2018-12-22 15:51 | NUR ---
Pt sleeping at this time.
--- NOTE | 2018-12-22 16:07 | NUR ---
Pt rates his abd pain at a 4/10 and requested pain medication. Pt medicated at this time. Pt repositioned and he denies the need for anything else at this time. Mouth swabs and personal items and call quinn within reach.
--- NOTE | 2018-12-22 17:44 | NUR ---
Pt denies pain at this time and states there is noting he needs at this time.
--- NOTE | 2018-12-22 17:58 | NUR ---
Pt recieved several doses of SL morphine and a dose of ativan this shift with good results. The pt verbalizes all needs and appears relaxed at this time. Colostomy has not put out any stool and the fish is producing a scant amount of dark starla colored urine. SCD's are on and running per the pt's request. There is an order for the pt to be seen first thing in the morning by data recovery planner as he needs placement as the pt's is unable to care for him at home.
--- NOTE | 2018-12-22 19:31 | NUR ---
RECEIVED REPORT FROM JHON PALACIOS. pt RATED PAIN /10. WILL RETURN WITH PRN PAIN MEDICATION. NO OTHER REQUESTS AT THIS TIME. WHITEBOARD UPDATED. CALL LIGHT WITHIN REACH.
--- NOTE | 2018-12-22 19:58 | NUR ---
pt COMPLAINING OF 4/10 PAIN AND REQUESTED ATIVAN, PRN PAIN MED AND ATIVAN GIVEN (SEE MAR). ASSESSMENT DONE. GENTILE CARE DONE. pt STATED HE IS STILL HAVING BLOATING. NO FURTHER REQUESTS AT THIS TIME. CALL LIGHT WITHIN REACH.
--- NOTE | 2018-12-22 21:30 | NUR ---
ATIF RN ROUNDING NOTE. PT UTILIZES CALL LIGHT, REQUESTS TO SIT UP ON THE EDGE OF THE BED AND REPOSITION HIMSELF IN BED. LINENS PULLED TAUT UNDER PT. PT PROPPED WITH PILLOWS. PT STATES HE IS MUCH MORE COMFORTABLE. PT DENIES FURTHER NEEDS, QUESTIONS, OR CONCERNS AT THIS TIME. WHITE BOARD UPDATED. CALL LIGHT IN REACH.
--- NOTE | 2018-12-22 22:04 | NUR ---
pt COMPLAINED OF 6/10 PAIN AND "SOME" NAUSEA. PRN MEDS GIVEN (SEE MAR). NO FURTHER REQUESTS AT THIS TIME. CALL LIGHT WITHIN REACH.
--- NOTE | 2018-12-23 00:03 | NUR ---
pt CALLED. REQUESTING PAIN MEDS FOR PAIN 01/22 AND ATIVAN. ADMINISTERED BY JHON LESTER (SEE MAR).
--- NOTE | 2018-12-23 02:45 | NUR ---
ROUNDED ON pt. RESTING WITH EYES CLOSED, RESPIRATIONS REGULAR AND UNLABORED, RATE = 18. CALL LIGHT WITHIN REACH.
--- NOTE | 2018-12-23 04:35 | NUR ---
ROUNDED ON pt. RESTING WITH EYES CLOSED, RESPIRATIONS REGULAR AND UNLABORED, RATE = 18. CALL LIGHT WITHIN REACH.
--- NOTE | 2018-12-23 05:08 | NUR ---
pt RESTED LAST PART OF SHIFT. REQUIRED PAIN MEDS X3. ATIVAN X2, AND PRN NAUSEA MEDS X1. GENTILE, COLOSTOMY. USES CALL LIGHT APPROPRIATLEY.
--- NOTE | 2018-12-23 06:10 | NUR ---
pt UP TO CHAIR. 1PA, FWW. REFUSED PAIN MEDS AT THIS TIME. WATER AND ENSURE PROVIDED. CALL LIGHT WITHIN REACH.
--- NOTE | 2018-12-23 07:15 | NUR ---
ASKED BY STAFF TO SEE PATIENT BECAUSE HE "DOESN'T WANT TO GO HOME". SPOKE WITH PATIENT IN ROOM. PATIENT SITTING UP IN CHAIR WATCHING TV. DISCUSSED OUR PLAN FROM SUNDAY THAT HE WOULD BE GOING HOME WITH HIS AND HOSPICE WAS GOING TO SEE HIM AT HOME. PATIENT STATES HE KNOWS THIS BUT IS WORRIED "MY WILL HAVE TOO MUCH TO DO FOR ME, THINGS ARE GOING GOOD HERE, CAN I JUST STAY HERE" EXPLAINED THAT THIS IS ACUTE CARE AND HE IS NOT ABLE TO STAY HERE. WE DISCUSSED AT LENGTH THAT IF HE CAN'T BE AT HOME HE CAN LOOK INTO LONG-TERM CARE AT A FACILITY AND THAT WE CAN HELP HIM WITH THIS FROM HOME IF HE DOES NOT DO WELL THERE. WE DISCUSSED THAT HE AND HIS INDICATED THAT HE WANTED TO BE AT HOME. HE STATES THAT HE DOES PREFER TO BE HOME, BUT HE IS WORRIED ABOUT PUTTING TO MUCH ON "MY ". I EXPLAINED THAT HIS IS LOOKING AT HIRING SOME HELP, AND THAT THE HOSPICE NURSES WOULD WORK WITH HIM ON ANY NEEDS, AND THAT A CHW WILL CONTACT THEM AT HOME TO ALSO BE AVAILABLE TO HELP THEM. PATIENT STATES HE "NEEDS TO TALK TO MY ".
--- NOTE | 2018-12-23 07:45 | NUR ---
STAFF ALERTED ME THAT DOUGLAS WAS ON THE PHONE. SPOKE WITH HER AT LENGTH. SHE STATES SHE IS STILL PLANNING ON BRINGING PATIENT HOME TODAY. SHE WAS CONCERNED ONLY THAT SHE DOESN'T DRIVE AND SHE NEEDS A WAY TO GET HIM HOME. WE DISCUSSED THAT STAFF BELIEVE HE WOULD BE ABLE TO TAKE A CARE-RIDE [facility] HOME AND THAT WE CAN ARRANGE FOR THIS. SHE IS AGREEABLE TO THAT. SHE STATES SHE SPOKE WITH FABIAN FROM HOSPICE AND THEY ARE WAITING ON US TO GIVE THE GO-AHEAD TO DELIVER THE EQUIPEMENT. I ASSURRED HER I WOULD CALL FABIAN NOW. I SPOKE WITH HER AT LENGTH ABOUT HOSPICE WILL ADMIT HIM TODAY AND THEN SHE CAN CALL THE RN ON DUTY FOR ANY PROBLEMS, OR CALL HIS PCP DR MCCAULEY. I ALSO DISCUSSED THAT I WILL REFER HIM TO THE CHW FROM THE CLINIC AND THEY WILL BE CONTACTING HER AN THAT IF FOR SOME REASON SHE NEEDS HELP WITH PLACEMENT, SHE WILL HAVE PLENTY OF HELP. SHE IS AGREEABLE TO THIS, QUESTIONS ANSWERED. CALLED AND SPOKE WITH FABIAN AT [facility]. SHE STATES THEY ARE PLANNING ON DELIVERING BED, EQUIPEMENT AND ADMITTING PATIENT TODAY. SHE STATES SHE HAS SPOKEN WITH DOUGLAS THIS MORNING. SHE ASKS THAT WE LET THEM KNOW WHEN PATIENT WILL BE ARRIVING HOME SO THEY CAN BE THERE.
--- NOTE | 2018-12-23 08:18 | NUR ---
PATIENT BACK TO BED FROM CHAIR, 1PA FWW. WARM BLANKET GIVEN. PATIENT ASKING FOR PAIN MEDS, RN NOTIFIED. CALL LIGHT IN REACH. NO FURTHER NEEDS AT THIS TIME.
--- NOTE | 2018-12-23 08:55 | NUR ---
SPOKE WITH DR CALI WHO UNDERSTANDS PATIENT IS GOING HOME ON HOSPICE TODAY. HE WILL DO DISCHARGE ORDERS. TRIED TO SPEAK WITH PATIENT, BUT HE IS NOW IN BED AND SOUNDLY ASLEEP AFTER RECEIVING PAIN MEDICATION. SPOKE WITH NURSE GURINDER. SHE IS WORKING WITH DR CALI ON ORDERS. CALLED PATIENTS , DOUGLAS AGAIN, UPDATED HER ON THAT ORDERS FOR DISCHARGE ARE BEING DONE, WE WILL ARRANGE TRANSPORTATION HOME PER HER REQUEST SHE DOES NOT DRIVE. SHE STATES SHE IS WAITING FOR DELIVERY OF EQUIPMENT NOW. AGAIN, QUESTIONS ANSWERED.
--- NOTE | 2018-12-23 09:17 | NUR ---
CALLED TO FLOOR ASKING WHY HOSPICE WAS DELAYING DELIVERING THE BED. NOT KNOWING WHY PLANS FOR DISCHARGE TODAY WERE BEING CHANGED. NOTIFIED DEYVI PENNINGTON OF PATIENT'S CONCERNS. PATIENT IN ROOM RESTING, SNORING. CALL LIGHT WITHIN REACH.
[2018-12-23] MEDS ORDERED: FENTANYL1 EACH TD (09:38)
--- NOTE | 2018-12-23 09:55 | NUR ---
DR. JONES INTO SEE PATIENT AND DISCUSSE POC WITH DISCHARGE. PATIENT APPEARS ANXIOUS, AND UNCERTAIN OF POC. PATIENT DISCUSSED WITH DOCTOR NEED FOR SOMETHING MORE FOR ANXIETY. NEW ORDER FOR ONE TIME DOSE OF IV ATIVAN 1 MG.
--- NOTE | 2018-12-23 10:45 | NUR ---
SPOKE WITH FABIAN AT [facility]. EQUIPMENT IS CURRENTLY BEING DELIVERED. SHE ASKS THAT RN HERE CALL AND GIVE A REPORT TO JANA RN THERE. SHE UNDERSTANDS WE WILL ARRANGE CARE-RIDE AND IF WE LET THEM KNOW WHEN, THEY WILL HAVE RN THERE WHEN HE ARRIVES TO HELP SETTLE HIM IN. SPOKE WITH GURINDER FERREIRA ON MEDICAL FLOOR. SHE WILL CALL HOSPICE WITH REPORT. SHE WILL ALSO ARRANGE CARE-RIDE AND DISCHARGE.
--- NOTE | 2018-12-23 11:22 | NUR ---
PROVIDED REPORT TO HOSPICE NURSE JANA. ANSWERED QUESTIONS AND CONCERNS. PLAN FOR HOSPICE NURSE TO BE AT PATIENT'S HOUSE AT 12:30, WILL ARRANGE CARE RIDE HOME.
--- NOTE | 2018-12-23 11:35 | NUR ---
SPOKE WITH DOUGLAS. UPDATED HER AGAIN ON PLAN. SHE STATES EQUIPMENT IS THERE, SHE IS GETTING SOME CLEANING DONE WHILE SHE WAITS FOR HIS RETURN HOME. SHE HAS MY NUMBER, SHE HAS CANDY STOUT'S CARD AND NUMBER AND SHE HAS HOSPICE PHONE NUMBERS. WE DISCUSSED THAT MEDICAL FLOOR WILL CALL HER WHEN THEY ARE READY TO PUT HIM IN THE CARE-RIDE. QUESTIONS ANSWERED. CALLED MEDICAL FLOOR, SPOKE WITH CALIN SOSA WHO IS ARRANGING TRANSPORTATION. PHONE NUMBER FOR GIVEN, THEY WILL CALL HER WHEN THEY GET PT READY FOR RIDE HOME.
--- NOTE | 2018-12-23 12:38 | NUR ---
PROVIDED PATIENT WITH DISCHARGE INSRUCTTION, EMPTIED COLOSTOMY 200 ML OF SOFT STOOL. EMPTIED GENTILE CATHETER, ORDERED TO LEAVE INTACT GOING HOME, 275 ML OF URINE. PATIENT STOOD STEADY AND AMBULATED TO , WITH STBY ASSIST. CARE RIDE PROVIDED, REPORT TO [facility] NURSE JANA. PATIENT'S CALLED TO NOTIFY PATIENT IN ROUTE TO RESIDENCE.
--- NOTE | 2018-12-23 14:30 | NUR ---
DR CASTAÑEDA HAD FAXED ME A REQUEST TO VISIT PT. HE IS TO BE DC'D TODAY. I STOPPED IN, PT WAS ASLEEP. HE LEFT BEFORE I RETURNED.
== END 2018-12-23 12:19 | disposition hospice, home (50) | DRG 371 ==
LOC: ED 02:25 → MS 02:26 → CCU 11:50 → MS 12-11 13:00 → CCU 12-17 09:10 → MS 12-20 13:05
PROVIDERS: ADMIT Surgery
PROC: 0W9G3ZX Drainage of Peritoneal Cavity, Percutaneous Approach, Diagnostic (ICD-10-PCS; principal; 2018-12-07)
PROC: 30233N1 Transfusion of Nonautologous Red Blood Cells into Peripheral Vein, Percutaneous Approach (ICD-10-PCS; 2018-12-08)
PROC: 3E033XZ Introduction of Vasopressor into Peripheral Vein, Percutaneous Approach (ICD-10-PCS; 2018-12-08)
PROC: 0W9G3ZZ Drainage of Peritoneal Cavity, Percutaneous Approach (ICD-10-PCS; 2018-12-17)
DX: K65.2 Spontaneous bacterial peritonitis (principal); K72.00 Acute and subacute hepatic failure without coma; E43 Unspecified severe protein-calorie malnutrition; D62 Acute posthemorrhagic anemia; I47.1 Supraventricular tachycardia; C18.7 Malignant neoplasm of sigmoid colon; A04.72 Enterocolitis due to Clostridium difficile, not specified as recurrent; K70.31 Alcoholic cirrhosis of liver with ascites; I86.8 Varicose veins of other specified sites; E11.9 Type 2 diabetes mellitus without complications; I10 Essential (primary) hypertension; M10.9 Gout, unspecified; E83.42 Hypomagnesemia; E87.6 Hypokalemia; Z51.5 Encounter for palliative care; Z93.3 Colostomy status; Z68.21 Body mass index [BMI] 21.0-21.9, adult; Z86.73 Personal history of transient ischemic attack (TIA), and cerebral infarction without residual deficits; Z88.0 Allergy status to penicillin; Z91.041 Radiographic dye allergy status; Z79.84 Long term (current) use of oral hypoglycemic drugs; Z79.818 Long term (current) use of other agents affecting estrogen receptors and estrogen levels; Z79.891 Long term (current) use of opiate analgesic; Z79.899 Other long term (current) drug therapy
CPT/HCPCS: 36415; 36430; 49083; 51702; 71045; 71046; 74176; 74250; 76705; 78227; 80048; 80053; 80076; 80202; 81001; 82150; 82607; 82728; 82746; 83540; 83605; 83615; 83690; 83735; 83880; 83930; 83935; 84100; 84157; 84466; 85025; 85045; 85610; 86850; 86900; 86901; 86920; 87040; 87070; 87075; 87205; 87493; 88112; 88305; 89051; 93005; 93010; 96361; 96374; 96375; 96376; 97110; 97116; 97162; 97530; 99285-25; A9537; C9113; G0378; J0153; J0690; J0692; J0696; J0780; J1170; J1644; J1940; J2060; J2270; J2405; J2550; J2765; J2805; J3370; J3475; J3480; J7030; J7060; J7120; P9016; P9047